=== PATIENT | female | born 1935 | race Caucasian/White ===

== ENCOUNTER 2017-01-13 11:46 | Inpatient (IN) | payer MEDICARE, OTHER ==
[~2017-01-13] VITALS: Ht 154.9 cm; Wt 64.8 kg
[~2017-01-13 11:46] MED LIST: ADLT ASA LOW81 MG OR; ADVAIR DISK1 IN; ALPRAZOLA1 OR; DILTIAZEM120 M1 PO; HYDROCHLOROT25 MG PO; KLOR-CON M2020 MEQ OR; NEXIUM40 M1 OR; PRIMIDONE50 MG OR; SINGULAIR10 MG OR; VICODIN ES1 TAB OR; ZOCOR20 MG OR; [UNRECOGNIZED DRUG - REMARK]
[2017-01-13 13:00] LABS: HEMATOCRIT 29.3 % (37.0-47.0); HEMOGLOBIN 9.7 g/dl (12.0-16.0); IMMATURE GRANULOCYTES 0.3 % (0.0-1.0); MEAN CELL VOLUME 87.7 fL CALC (80.0-100.0); MEAN CORPUSCULAR HGB CONC 33.1 g/L CALC (32.0-36.0); RED BLOOD COUNT 3.34 mill/uL (4.20-5.60); RED CELL DISTRI WIDTH 15.4 % (11.5-15.5)
[2017-01-13 13:20] LABS: ALBUMIN 4.2 g/dL (3.2-5.0); ALKALINE PHOSPHATASE 83 u/l (38-126); ANION GAP 15 (6-22 (CALC)); BILIRUBIN, TOTAL 0.6 mg/dL (0.0-1.4); BUN 39 mg/dL (8-23); BUN/CREATININE RATIO 14 (12-20 (CALC)); CALCIUM 9.2 mg/dL (8.4-10.2); CARBON DIOXIDE 24 mmol/l (22-30); CHLORIDE 105 mmol/l (95-108); CREATININE 2.8 mg/dL (0.5-1.0); GFR 16 ML/MIN (>=60 (CALC)); GFR FOR AFR.AMER. 20 ML/MIN (>=60 (CALC)); GLUCOSE 114 mg/dL (82-115); SGOT/AST 40 u/l (9-36); SGPT/ALT 34 u/l (11-66); SODIUM 140 mmol/l (137-146); TOTAL PROTEIN 7.1 g/dL (6.3-8.2)
[2017-01-13 13:30] LABS: MYOGLOBIN 66 ng/mL (0 - 62)
[2017-01-13] MEDS ORDERED: GLUCOTROL EXTE2.5 M1 PO (14:16)
[2017-01-13] MEDS ORDERED: PRIMIDONE50 MG PO ×2 (14:56→16:01)
[2017-01-13] MEDS ORDERED: NEURONTIN300 MG PO (14:58)
[2017-01-13] MEDS ORDERED: VITAMIN D50000 UNIT PO (14:59)
[2017-01-13] MEDS ORDERED: PRAMIPEXOLE0.25 MG PO (15:01)
[2017-01-13] MEDS ORDERED: ZESTRIL5 M1 PO (15:03)
[2017-01-13] MEDS ORDERED: CARB/LEVO1 TA4 PO (15:04)
[2017-01-13 15:39] LABS: URINE BILIRUBIN - DIPSTICK NEGATIVE (NEGATIVE); URINE BLOOD DIPSTICK NEGATIVE (NEGATIVE); URINE CLARITY CLEAR; URINE COLOR YELLOW; URINE GLUCOSE - DIPSTICK NEGATIVE (NEGATIVE); URINE KETONE NEGATIVE (NEGATIVE); URINE LEUK ESTERASE TRACE (NEGATIVE); URINE NITRITE - DIPSTICK NEGATIVE (Negative); URINE PROTEIN - DIPSTICK NEGATIVE (NEG-TRACE); URINE UROBILINOGEN - DIPSTICK 0.2 E.U./dL (0.2)
[2017-01-13] MEDS ORDERED: SIMVASTATIN20 MG PO (16:12)
[2017-01-13] MEDS ORDERED: FOLIC ACID1 MG PO (16:13)
[2017-01-13 17:00] VITALS: BP 189/87
[2017-01-13 18:55] VITALS: BP 142/58
[2017-01-13 18:56] VITALS: BP 160/61
[2017-01-13 18:57] VITALS: BP 139/58
[2017-01-13 23:20] VITALS: BP 133/55
[2017-01-14 04:20] VITALS: BP 150/60
[2017-01-14 05:26] LABS: IMMATURE GRANULOCYTES 0.2 % (0.0-1.0); MEAN CELL VOLUME 87.7 fL CALC (80.0-100.0); MEAN CORPUSCULAR HGB 29.2 pG CALC (26.0-32.0); MEAN CORPUSCULAR HGB CONC 33.3 g/L CALC (32.0-36.0); NEUT# 2.01 thou/uL (2.00-7.15); RED BLOOD COUNT 3.08 mill/uL (4.20-5.60); RED CELL DISTRI WIDTH 15.7 % (11.5-15.5)
[2017-01-14 05:37] LABS: ALBUMIN 3.5 g/dL (3.2-5.0); CALCIUM 8.8 mg/dL (8.4-10.2); CHOLESTEROL HDL RATIO 2.2 (<4.4 (CALC)); CREATININE 2.1 mg/dL (0.5-1.0); POTASSIUM 4.8 mmol/l (3.5-5.1)
[2017-01-14 08:02] VITALS: BP 150/63
[2017-01-14 11:10] VITALS: BP 148/62
[2017-01-14 16:30] VITALS: BP 158/67
[2017-01-14 19:20] VITALS: BP 162/69
[2017-01-15 00:52] VITALS: BP 136/62
[2017-01-15 05:03] VITALS: BP 143/68
[2017-01-15 06:16] LABS: HEMATOCRIT 27.8 % (37.0-47.0); HEMOGLOBIN 8.9 g/dl (12.0-16.0); IMMATURE GRANULOCYTES 0.2 % (0.0-1.0); MEAN CELL VOLUME 88.5 fL CALC (80.0-100.0); MEAN CORPUSCULAR HGB 28.3 pG CALC (26.0-32.0); NEUT# 2.33 thou/uL (2.00-7.15); RED BLOOD COUNT 3.14 mill/uL (4.20-5.60); RED CELL DISTRI WIDTH 15.8 % (11.5-15.5)
[2017-01-15 06:36] LABS: CALCIUM 9.2 mg/dL (8.4-10.2); CREATININE 1.9 mg/dL (0.5-1.0); POTASSIUM 5.1 mmol/l (3.5-5.1)
[2017-01-15 08:42] VITALS: BP 155/66
[2017-01-15] MEDS ORDERED: CARDIZEM CD120 M1 PO (12:03)
[2017-01-15 13:25] VITALS: BP 154/72
== END 2017-01-15 18:00 | disposition home health service (06) | DRG 309 ==
LOC: ENPENDDIS → ED 11:46 → ED-I 15:18 → ED 15:25 → MS2 15:26
PROVIDERS: Emergency Medicine; ADMIT Internal Medicine; ATTEND Internal Medicine
DX: R00.1 Bradycardia, unspecified (principal); N17.9 Acute kidney failure, unspecified; E11.22 Type 2 diabetes mellitus with diabetic chronic kidney disease; G20 Parkinson's disease; I95.2 Hypotension due to drugs; D64.9 Anemia, unspecified; E78.5 Hyperlipidemia, unspecified; I12.9 Hypertensive chronic kidney disease with stage 1 through stage 4 chronic kidney disease, or unspecified chronic kidney disease; N18.3 Chronic kidney disease, stage 3 (moderate); T50.2X5A Adverse effect of carbonic-anhydrase inhibitors, benzothiadiazides and other diuretics, initial encounter; T46.1X5A Adverse effect of calcium-channel blockers, initial encounter; Z87.11 Personal history of peptic ulcer disease; Z79.84 Long term (current) use of oral hypoglycemic drugs

== ENCOUNTER 2017-01-20 10:56 | Inpatient (IN) | payer MEDICARE, OTHER ==
[~2017-01-20] VITALS: Ht 154.9 cm; Wt 67.5 kg
[~2017-01-20 10:56] MED LIST changes: +CARB/LEVO1 TA4 PO; +CARDIZEM CD120 M1 PO; +FOLIC ACID1 MG PO; +GLUCOTROL EXTE2.5 M1 PO; +NEURONTIN300 MG PO; +PRAMIPEXOLE0.25 MG PO; +PRIMIDONE50 MG PO; +SIMVASTATIN20 MG PO; +VITAMIN D50000 UNIT PO; +ZESTRIL5 M1 PO
[2017-01-20 11:55] LABS: HEMATOCRIT 28.9 % (37.0-47.0); HEMOGLOBIN 9.5 g/dl (12.0-16.0); IMMATURE GRANULOCYTES 0.2 % (0.0-1.0); MEAN CORPUSCULAR HGB 28.6 pG CALC (26.0-32.0); MEAN CORPUSCULAR HGB CONC 32.9 g/L CALC (32.0-36.0); NEUT# 2.52 thou/uL (2.00-7.15); RED BLOOD COUNT 3.32 mill/uL (4.20-5.60); RED CELL DISTRI WIDTH 15.5 % (11.5-15.5)
[2017-01-20 12:33] LABS: ALBUMIN 4.4 g/dL (3.2-5.0); ALKALINE PHOSPHATASE 80 u/l (38-126); ANION GAP 16 (6-22 (CALC)); BILIRUBIN, TOTAL 0.6 mg/dL (0.0-1.4); BUN 23 mg/dL (8-23); BUN/CREATININE RATIO 13 (12-20 (CALC)); CALCIUM 9.5 mg/dL (8.4-10.2); CARBON DIOXIDE 24 mmol/l (22-30); CHLORIDE 99 mmol/l (95-108); CREATININE 1.8 mg/dL (0.5-1.0); GFR 27 ML/MIN (>=60 (CALC)); GFR FOR AFR.AMER. 33 ML/MIN (>=60 (CALC)); GLUCOSE 181 mg/dL (82-115); POTASSIUM 4.7 mmol/l (3.5-5.1); SGOT/AST 42 u/l (9-36); SGPT/ALT 32 u/l (11-66); SODIUM 134 mmol/l (137-146); TOTAL PROTEIN 7.2 g/dL (6.3-8.2)
[2017-01-20 12:42] LABS: MYOGLOBIN 49 ng/mL (0 - 62)
[2017-01-20 15:30] VITALS: BP 168/63
[2017-01-20 19:30] VITALS: BP 171/69
[2017-01-20 19:58] LABS: URINE BILIRUBIN - DIPSTICK NEGATIVE (NEGATIVE); URINE BLOOD DIPSTICK NEGATIVE (NEGATIVE); URINE CLARITY CLEAR; URINE COLOR YELLOW; URINE GLUCOSE - DIPSTICK NEGATIVE (NEGATIVE); URINE KETONE NEGATIVE (NEGATIVE); URINE PROTEIN - DIPSTICK NEGATIVE (NEG-TRACE); URINE UROBILINOGEN - DIPSTICK 0.2 E.U./dL (0.2)
[2017-01-20 19:59] LABS: URINE LEUK ESTERASE MODERATE (NEGATIVE); URINE NITRITE - DIPSTICK POSITIVE (Negative)
[2017-01-20 20:11] LABS: URINE SQUAMOUS EPITHELIAL CELL FEW EPI/hpf (0-FEW)
[2017-01-20 23:40] VITALS: BP 142/58
[2017-01-21 03:41] VITALS: BP 173/73
[2017-01-21 08:18] LABS: HEMATOCRIT 29.2 % (37.0-47.0); HEMOGLOBIN 9.4 g/dl (12.0-16.0); IMMATURE GRANULOCYTES 0.2 % (0.0-1.0); MEAN CELL VOLUME 88.8 fL CALC (80.0-100.0); MEAN CORPUSCULAR HGB 28.6 pG CALC (26.0-32.0); MEAN CORPUSCULAR HGB CONC 32.2 g/L CALC (32.0-36.0); NEUT# 2.59 thou/uL (2.00-7.15); RED BLOOD COUNT 3.29 mill/uL (4.20-5.60); RED CELL DISTRI WIDTH 15.6 % (11.5-15.5)
[2017-01-21 08:28] LABS: CALCIUM 9.5 mg/dL (8.4-10.2); CREATININE 1.6 mg/dL (0.5-1.0)
[2017-01-21 08:41] LABS: POTASSIUM 5.2 mmol/l (3.5-5.1)
[2017-01-21 09:03] VITALS: BP 171/65
[2017-01-21 10:49] VITALS: BP 172/78
[2017-01-21 15:08] VITALS: BP 171/68
[2017-01-21 19:40] VITALS: BP 142/72
[2017-01-22 01:06] VITALS: BP 131/61
[2017-01-22 04:30] VITALS: BP 156/65
[2017-01-22 06:31] LABS: CREATININE 1.4 mg/dL (0.5-1.0)
[2017-01-22 08:28] VITALS: BP 158/59
[2017-01-22 12:49] VITALS: BP 179/71
[2017-01-22 13:29] VITALS: BP 155/88
[2017-01-22 16:38] VITALS: BP 156/63
== END 2017-01-22 17:12 | disposition short-term general hospital (02) | DRG 309 ==
LOC: ED 10:56 → ED-I 12:41 → ED 12:41 → ED-I 12:41 → ED 13:25 → MS2 13:26
PROVIDERS: Emergency Medicine; ADMIT Internal Medicine; ATTEND Internal Medicine
DX: I49.5 Sick sinus syndrome (principal); N17.9 Acute kidney failure, unspecified; E11.22 Type 2 diabetes mellitus with diabetic chronic kidney disease; G20 Parkinson's disease; E87.1 Hypo-osmolality and hyponatremia; I12.9 Hypertensive chronic kidney disease with stage 1 through stage 4 chronic kidney disease, or unspecified chronic kidney disease; N18.3 Chronic kidney disease, stage 3 (moderate); E78.5 Hyperlipidemia, unspecified; D64.9 Anemia, unspecified; E87.5 Hyperkalemia; Z87.11 Personal history of peptic ulcer disease; Z79.84 Long term (current) use of oral hypoglycemic drugs
CPT/HCPCS: G0378

== ENCOUNTER 2017-02-19 13:49 | Emergency (ER) | payer MEDICARE, OTHER ==
[~2017-02-19] VITALS: Ht 154.9 cm; Wt 90.0 kg
[2017-02-19 14:44] LABS: HEMOGLOBIN 8.3 g/dl (12.0-16.0); IMMATURE GRANULOCYTES 1.3 % (0.0-1.0); MEAN CELL VOLUME 89.9 fL CALC (80.0-100.0); MEAN CORPUSCULAR HGB 29.9 pG CALC (26.0-32.0); MEAN CORPUSCULAR HGB CONC 33.2 g/L CALC (32.0-36.0); NEUT# 7.01 thou/uL (2.00-7.15); RED BLOOD COUNT 2.78 mill/uL (4.20-5.60); RED CELL DISTRI WIDTH 16.4 % (11.5-15.5)
[2017-02-19 14:57] LABS: BILIRUBIN, TOTAL 1.1 mg/dL (0.0-1.4); CALCIUM 8.8 mg/dL (8.4-10.2); CREATININE 1.7 mg/dL (0.5-1.0); POTASSIUM 4.4 mmol/l (3.5-5.1); TOTAL PROTEIN 6.8 g/dL (6.3-8.2)
[2017-02-19] MEDS ORDERED: BACTRIM DS1 TAB PO (16:13)
[2017-02-19 16:39] LABS: URINE BILIRUBIN - DIPSTICK NEGATIVE (NEGATIVE); URINE BLOOD DIPSTICK SMALL (NEGATIVE); URINE CLARITY TURBID; URINE COLOR YELLOW; URINE GLUCOSE - DIPSTICK NEGATIVE (NEGATIVE); URINE KETONE NEGATIVE (NEGATIVE); URINE NITRITE - DIPSTICK NEGATIVE (Negative); URINE PH 5.5 (4.5-8.0); URINE PROTEIN - DIPSTICK 30 mg/dL (NEG-TRACE); URINE SPECIFIC GRAVITY 1.015; URINE UROBILINOGEN - DIPSTICK 0.2 E.U./dL (0.2)
[2017-02-19 16:41] LABS: URINE LEUK ESTERASE LARGE (NEGATIVE)
[2017-02-19 16:50] LABS: URINE BACTERIA MODERATE hpf; URINE MUCUS FEW hpf (NONE-FEW); URINE RBC 0-2 RBC/hpf (0-5); URINE SQUAMOUS EPITHELIAL CELL FEW EPI/hpf (0-FEW); URINE WBC 50-100 WBC/hpf (0-5)
[2017-02-19 18:06] VITALS: BP 129/58
== END 2017-02-19 18:28 | disposition home or self-care (01) ==
LOC: ED 13:49
PROVIDERS: Emergency Medicine
DX: N39.0 Urinary tract infection, site not specified (principal); B96.20 Unspecified Escherichia coli [E. coli] as the cause of diseases classified elsewhere; Z95.0 Presence of cardiac pacemaker; R94.31 Abnormal electrocardiogram [ECG] [EKG]; R53.81 Other malaise; I10 Essential (primary) hypertension; E11.9 Type 2 diabetes mellitus without complications; Z79.84 Long term (current) use of oral hypoglycemic drugs

== ENCOUNTER 2017-04-15 15:00 | Emergency (ER) | payer MEDICARE, OTHER ==
[~2017-04-15] VITALS: Ht 154.9 cm; Wt 65.0 kg
[~2017-04-15 15:00] MED LIST changes: +BACTRIM DS1 TAB PO
[2017-04-15 16:01] LABS: HEMATOCRIT 32.6 % (37.0-47.0); HEMOGLOBIN 10.7 g/dl (12.0-16.0); IMMATURE GRANULOCYTES 0.2 % (0.0-1.0); MEAN CELL VOLUME 97.6 fL CALC (80.0-100.0); MEAN CORPUSCULAR HGB CONC 32.8 g/L CALC (32.0-36.0); NEUT# 2.68 thou/uL (2.00-7.15); RED BLOOD COUNT 3.34 mill/uL (4.20-5.60); RED CELL DISTRI WIDTH 15.1 % (11.5-15.5)
[2017-04-15 16:19] LABS: ALKALINE PHOSPHATASE 82 u/l (38-126); AMYLASE 35 u/l (30-110); ANION GAP 17 (6-22 (CALC)); BILIRUBIN, TOTAL 0.5 mg/dL (0.0-1.4); BUN 14 mg/dL (8-23); BUN/CREATININE RATIO 13 (12-20 (CALC)); CALCIUM 8.9 mg/dL (8.4-10.2); CARBON DIOXIDE 24 mmol/l (22-30); CHLORIDE 105 mmol/l (95-108); CREATININE 1.1 mg/dL (0.5-1.0); GFR 48 ML/MIN (>=60 (CALC)); GFR FOR AFR.AMER. 58 ML/MIN (>=60 (CALC)); GLUCOSE 181 mg/dL (82-115); LIPASE 26 u/l (23-300); SGOT/AST 47 u/l (9-36); SGPT/ALT 39 u/l (11-66); SODIUM 142 mmol/l (137-146)
[2017-04-15 16:31] LABS: MYOGLOBIN 65 ng/mL (0 - 62)
[2017-04-15 17:08] LABS: URINE BILIRUBIN - DIPSTICK NEGATIVE (NEGATIVE); URINE BLOOD DIPSTICK TRACE-INTACT (NEGATIVE); URINE CLARITY CLOUDY; URINE COLOR YELLOW; URINE GLUCOSE - DIPSTICK NEGATIVE (NEGATIVE); URINE KETONE NEGATIVE (NEGATIVE); URINE PROTEIN - DIPSTICK NEGATIVE (NEG-TRACE); URINE SPECIFIC GRAVITY 1.025; URINE UROBILINOGEN - DIPSTICK 0.2 E.U./dL (0.2)
[2017-04-15 17:09] LABS: URINE LEUK ESTERASE MODERATE (NEGATIVE); URINE NITRITE - DIPSTICK POSITIVE (Negative)
[2017-04-15 17:17] LABS: URINE BACTERIA MANY hpf; URINE SQUAMOUS EPITHELIAL CELL FEW EPI/hpf (0-FEW); URINE WBC 50-100 WBC/hpf (0-5)
[2017-04-15] MEDS ORDERED: NAPROSYN500 MG PO (17:25)
[2017-04-15] MEDS ORDERED: CEPHALEXIN500 MG PO (17:25)
[2017-04-15 18:23] VITALS: BP 160/82
== END 2017-04-15 18:28 | disposition home or self-care (01) ==
LOC: ED 15:00
PROVIDERS: Emergency Medicine
DX: N39.0 Urinary tract infection, site not specified (principal); M25.512 Pain in left shoulder; M79.602 Pain in left arm; R11.0 Nausea; D64.9 Anemia, unspecified; I10 Essential (primary) hypertension; G20 Parkinson's disease; E11.9 Type 2 diabetes mellitus without complications; B96.1 Klebsiella pneumoniae [K. pneumoniae] as the cause of diseases classified elsewhere; Z16.12 Extended spectrum beta lactamase (ESBL) resistance

== ENCOUNTER 2017-06-18 08:27 | Emergency (ER) | payer MEDICARE, OTHER ==
[~2017-06-18] VITALS: Ht 154.9 cm; Wt 68.0 kg
[~2017-06-18 08:27] MED LIST changes: +CEPHALEXIN500 MG PO; +NAPROSYN500 MG PO
[2017-06-18 09:10] LABS: HEMATOCRIT 32.8 % (37.0-47.0); HEMOGLOBIN 10.6 g/dl (12.0-16.0); IMMATURE GRANULOCYTES 0.3 % (0.0-1.0); MEAN CELL VOLUME 96.2 fL CALC (80.0-100.0); MEAN CORPUSCULAR HGB 31.1 pG CALC (26.0-32.0); MEAN CORPUSCULAR HGB CONC 32.3 g/L CALC (32.0-36.0); NEUT# 2.24 thou/uL (2.00-7.15); RED BLOOD COUNT 3.41 mill/uL (4.20-5.60); RED CELL DISTRI WIDTH 13.8 % (11.5-15.5)
[2017-06-18] MEDS ORDERED: TERAZOSIN5 MG PO (09:23)
[2017-06-18 09:29] LABS: ALBUMIN 4.2 g/dL (3.2-5.0); ALKALINE PHOSPHATASE 100 u/l (38-126); ANION GAP 14 (6-22 (CALC)); BILIRUBIN, TOTAL 0.6 mg/dL (0.0-1.4); BUN 22 mg/dL (8-23); BUN/CREATININE RATIO 22 (12-20 (CALC)); CALCIUM 9.3 mg/dL (8.4-10.2); CARBON DIOXIDE 24 mmol/l (22-30); CHLORIDE 107 mmol/l (95-108); GFR 53 ML/MIN (>=60 (CALC)); GFR FOR AFR.AMER. > 60 ML/MIN (>=60 (CALC)); GLUCOSE 122 mg/dL (82-115); SGOT/AST 30 u/l (9-36); SGPT/ALT 37 u/l (11-66); SODIUM 141 mmol/l (137-146); TOTAL PROTEIN 6.9 g/dL (6.3-8.2)
[2017-06-18 09:39] LABS: MYOGLOBIN 69 ng/mL (0 - 62)
[2017-06-18] MEDS ORDERED: DOCUSATE CAL240 MG PO (09:59)
[2017-06-18] MEDS ORDERED: TYLENOL 8 HOUR650 MG PO (10:01)
[2017-06-18] MEDS ORDERED: CLONIDINE0.1 MG PO (11:00)
[2017-06-18 11:06] VITALS: BP 175/75
== END 2017-06-18 11:30 | disposition home or self-care (01) ==
LOC: ED 08:27
PROVIDERS: Emergency Medicine
DX: I16.0 Hypertensive urgency (principal); R94.31 Abnormal electrocardiogram [ECG] [EKG]; G20 Parkinson's disease; E11.9 Type 2 diabetes mellitus without complications; Z95.0 Presence of cardiac pacemaker

== ENCOUNTER 2017-08-04 15:20 | Emergency (ER) | payer MEDICARE, OTHER ==
[~2017-08-04] VITALS: Ht 154.9 cm; Wt 65.0 kg
[~2017-08-04 15:20] MED LIST changes: +ASPIRIN81 MG PO; +CLONIDINE0.1 MG PO; +DOCUSATE CAL240 MG PO; +LISINOPRIL5 MG PO; +OXYBUTYNIN5 M1 PO; +PROCRIT4000 UNIT/ SC; +TERAZOSIN5 MG PO; +TYLENOL 8 HOUR650 MG PO
[2017-08-04 16:54] LABS: HEMATOCRIT 35.7 % (37.0-47.0); HEMOGLOBIN 11.5 g/dl (12.0-16.0); IMMATURE GRANULOCYTES 0.2 % (0.0-1.0); MEAN CELL VOLUME 97.8 fL CALC (80.0-100.0); MEAN CORPUSCULAR HGB 31.5 pG CALC (26.0-32.0); MEAN CORPUSCULAR HGB CONC 32.2 g/L CALC (32.0-36.0); NEUT# 3.01 thou/uL (2.00-7.15); RED BLOOD COUNT 3.65 mill/uL (4.20-5.60); RED CELL DISTRI WIDTH 14.4 % (11.5-15.5)
[2017-08-04 17:18] LABS: ALBUMIN 4.4 g/dL (3.2-5.0); BILIRUBIN, TOTAL 0.6 mg/dL (0.0-1.4); CALCIUM 9.9 mg/dL (8.4-10.2); CREATININE 1.1 mg/dL (0.5-1.0); POTASSIUM 4.8 mmol/l (3.5-5.1); TOTAL PROTEIN 7.5 g/dL (6.3-8.2)
[2017-08-04 18:26] VITALS: BP 156/67
== END 2017-08-04 18:35 | disposition home or self-care (01) ==
LOC: ED 15:20
PROVIDERS: Emergency Medicine
DX: R10.11 Right upper quadrant pain (principal); G89.29 Other chronic pain; R10.31 Right lower quadrant pain; K59.00 Constipation, unspecified

== ENCOUNTER 2017-11-12 08:07 | Day surgery (SDC) | payer MEDICARE, OTHER ==
[~2017-11-12] VITALS: Ht 152.4 cm; Wt 67.6 kg
[~2017-11-12 08:07] MED LIST changes: +CEPHALEXIN500 M1 PO; +DULOXETINE HCL30 MG PO; +FOLIC ACID1 M1 PO; +GABAPENTIN300 M2 PO; +MOTRIN400 MG PO; +ONDANSETRON4 MG PO; +PRAMIPEXOLE0.125 MG PO
[2017-11-12] MEDS ORDERED: TRAMADOL HYDROC50 MG PO (12:47)
[2017-11-12 16:03] VITALS: BP 105/51
== END 2017-11-12 15:20 | disposition home or self-care (01) ==
LOC: ORM 08:07
PROVIDERS: ATTEND Surgery
PROC: 0JH60XZ Insertion of Tunneled Vascular Access Device into Chest Subcutaneous Tissue and Fascia, Open Approach (ICD-10-PCS; principal; 2017-11-12)
PROC: 02HV33Z Insertion of Infusion Device into Superior Vena Cava, Percutaneous Approach (ICD-10-PCS; 2017-11-12)
PROC: B518ZZA Fluoroscopy of Superior Vena Cava, Guidance (ICD-10-PCS; 2017-11-12)
DX: I87.8 Other specified disorders of veins (principal); I10 Essential (primary) hypertension; E78.00 Pure hypercholesterolemia, unspecified

== ENCOUNTER 2017-11-30 13:11 | Emergency (ER) | payer OTHER, MEDICARE ==
[~2017-11-30] VITALS: Ht 152.4 cm; Wt 70.0 kg
[~2017-11-30 13:11] MED LIST changes: +TRAMADOL HYDROC50 MG PO
[2017-11-30 17:44] VITALS: BP 188/85
== END 2017-11-30 17:50 | disposition home or self-care (01) | DRG 605 ==
LOC: ED 13:11
DX: S20.211A Contusion of right front wall of thorax, initial encounter (principal); G20 Parkinson's disease; I10 Essential (primary) hypertension; S20.229A Contusion of unspecified back wall of thorax, initial encounter; V43.52XA Car driver injured in collision with other type car in traffic accident, initial encounter; Y92.414 Local residential or business street as the place of occurrence of the external cause

== ENCOUNTER 2017-12-07 11:35 | Emergency (ER) | payer OTHER, MEDICARE ==
[~2017-12-07] VITALS: Ht 152.4 cm; Wt 63.0 kg
[2017-12-07] MEDS ORDERED: TORADOL PO (12:54)
[2017-12-07 12:56] VITALS: BP 158/80
== END 2017-12-07 13:13 | disposition home or self-care (01) | DRG 563 ==
LOC: ED 11:35
DX: S29.012A Strain of muscle and tendon of back wall of thorax, initial encounter (principal); S20.229D Contusion of unspecified back wall of thorax, subsequent encounter; V43.52XD Car driver injured in collision with other type car in traffic accident, subsequent encounter; Y92.414 Local residential or business street as the place of occurrence of the external cause

== ENCOUNTER 2019-02-18 12:21 | Emergency (ER) | payer MEDICARE, OTHER ==
[~2019-02-18] VITALS: Ht 157.5 cm; Wt 60.0 kg
[~2019-02-18 12:21] MED LIST changes: +TORADOL PO
[2019-02-18 13:32] LABS: HEMATOCRIT 30.8 % (37.0-47.0); HEMOGLOBIN 10.1 g/dl (12.0-16.0); IMMATURE GRANULOCYTES 0.5 % (0.0-5.0); MEAN CELL VOLUME 97.2 fL CALC (80.0-100.0); MEAN CORPUSCULAR HGB 31.9 pG CALC (26.0-32.0); MEAN CORPUSCULAR HGB CONC 32.8 g/L CALC (32.0-36.0); NEUT# 1.9 thou/uL (2.00-7.15); RED BLOOD COUNT 3.17 mill/uL (4.20-5.60); RED CELL DISTRI WIDTH 14.4 % (11.5-15.5)
[2019-02-18 13:55] LABS: ANION GAP 9 (6-22 (CALC)); BUN 16 mg/dL (8-23); BUN/CREATININE RATIO 20 (12-20 (CALC)); CARBON DIOXIDE 29 mmol/l (22-30); CHLORIDE 103 mmol/l (95-108); CREATININE 0.8 mg/dL (0.5-1.0); GFR > 60 ML/MIN (>=60 (CALC)); GFR FOR AFR.AMER. > 60 ML/MIN (>=60 (CALC)); POTASSIUM 4.3 mmol/l (3.5-5.1); SODIUM 137 mmol/l (137-146)
[2019-02-18 14:41] VITALS: BP 184/82
== END 2019-02-18 14:41 ==
LOC: ED 12:21
PROVIDERS: Family Medicine
DX: R42 Dizziness and giddiness (principal); I10 Essential (primary) hypertension; G20 Parkinson's disease; E11.9 Type 2 diabetes mellitus without complications

== ENCOUNTER 2019-09-08 12:03 | Emergency (ER) | payer MEDICARE, OTHER ==
[2019-09-08] MEDS ORDERED: MAGNESIUM296 ML/BTL PO (13:09)
[2019-09-08 13:18] VITALS: BP 182/86
[2019-09-09] MEDS ORDERED: XARELTO10 MG PO (13:50)
== END 2019-09-08 13:33 | disposition home or self-care (01) ==
LOC: ED 12:03
DX: K59.00 Constipation, unspecified (principal); I10 Essential (primary) hypertension; G20 Parkinson's disease; E11.9 Type 2 diabetes mellitus without complications

== ENCOUNTER 2019-09-21 12:57 | Observation (INO) | payer MEDICARE, OTHER ==
[~2019-09-21] VITALS: Ht 154.9 cm; Wt 62.3 kg
[~2019-09-21 12:57] MED LIST changes: +MAGNESIUM296 ML/BTL PO; +XARELTO10 MG PO
[2019-09-21 13:38] LABS: HEMATOCRIT 30.8 % (37.0-47.0); HEMOGLOBIN 10.3 g/dl (12.0-16.0); IMMATURE GRANULOCYTES 0.3 % (0.0-5.0); MEAN CELL VOLUME 95.4 fL CALC (80.0-100.0); MEAN CORPUSCULAR HGB 31.9 pG CALC (26.0-32.0); MEAN CORPUSCULAR HGB CONC 33.4 g/L CALC (32.0-36.0); NEUT# 1.55 thou/uL (2.00-7.15); RED BLOOD COUNT 3.23 mill/uL (4.20-5.60); RED CELL DISTRI WIDTH 13.1 % (11.5-15.5)
[2019-09-21 14:12] LABS: ANION GAP 11 (6-22 (CALC)); BUN 17 mg/dL (8-23); BUN/CREATININE RATIO 17 (12-20 (CALC)); CARBON DIOXIDE 29 mmol/l (22-30); CHLORIDE 95 mmol/l (95-108); GFR 53 ML/MIN (>=60 (CALC)); GFR FOR AFR.AMER. > 60 ML/MIN (>=60 (CALC)); POTASSIUM 4.4 mmol/l (3.5-5.1); SODIUM 131 mmol/l (137-146)
[2019-09-21] MEDS ORDERED: FAMOTIDINE20 M1 PO (15:42)
[2019-09-21] MEDS ORDERED: LISINOPRIL20 MG PO (15:44)
[2019-09-21] MEDS ORDERED: DITROPAN5 MG/TA1 PO (15:48)
[2019-09-21] MEDS ORDERED: XARELTO10 MG PO (16:13)
[2019-09-21] MEDS ORDERED: D32000 UNIT PO (16:13)
[2019-09-21] MEDS ORDERED: PRIMIDONE50 MG PO (16:14)
[2019-09-21 19:10] VITALS: BP 158/78
[2019-09-22 04:34] VITALS: BP 151/75
[2019-09-22 06:14] LABS: CHOLESTEROL HDL RATIO 1.8 (<4.4 (CALC))
[2019-09-22 08:00] VITALS: BP 158/52
[2019-09-22 11:55] VITALS: BP 173/75
== END 2019-09-22 15:55 | disposition home health service (06) ==
LOC: ED 12:57 → ED-I 14:58 → ED 15:11 → MS2 15:12
PROVIDERS: Family Medicine; ADMIT Internal Medicine; ATTEND Internal Medicine
DX: R07.89 Other chest pain (principal); I48.0 Paroxysmal atrial fibrillation; I12.9 Hypertensive chronic kidney disease with stage 1 through stage 4 chronic kidney disease, or unspecified chronic kidney disease; E11.22 Type 2 diabetes mellitus with diabetic chronic kidney disease; N18.3 Chronic kidney disease, stage 3 (moderate); G20 Parkinson's disease; E78.5 Hyperlipidemia, unspecified; D64.9 Anemia, unspecified; Z95.828 Presence of other vascular implants and grafts; Z87.11 Personal history of peptic ulcer disease; Z95.0 Presence of cardiac pacemaker; N18.4 Chronic kidney disease, stage 4 (severe); D63.1 Anemia in chronic kidney disease; D50.9 Iron deficiency anemia, unspecified; Z45.2 Encounter for adjustment and management of vascular access device
CPT/HCPCS: G0378; Q5106 EC

== ENCOUNTER 2019-11-04 | Emergency (ER) | payer MEDICARE, OTHER ==
[~2019-11-04] MED LIST changes: +D32000 UNIT PO; +DITROPAN5 MG/TA1 PO; +FAMOTIDINE20 M1 PO; +LISINOPRIL20 MG PO
[2019-11-04 14:09] LABS: HEMATOCRIT 31.4 % (37.0-47.0); HEMOGLOBIN 10.8 g/dl (12.0-16.0); IMMATURE GRANULOCYTES 0.2 % (0.0-5.0); MEAN CELL VOLUME 93.2 fL CALC (80.0-100.0); MEAN CORPUSCULAR HGB CONC 34.4 g/dL CAL (32.0-36.0); NEUT# 2.48 thou/uL (2.00-7.15); RED BLOOD COUNT 3.37 mill/uL (4.20-5.60); RED CELL DISTRI WIDTH 12.7 % (11.5-15.5)
[2019-11-04 14:40] LABS: ANION GAP 10 (6-22 (CALC)); BUN 13 mg/dL (8-23); BUN/CREATININE RATIO 16 (12-20 (CALC)); CARBON DIOXIDE 27 mmol/l (22-30); CHLORIDE 95 mmol/l (95-108); CREATININE 0.8 mg/dL (0.5-1.0); GFR > 60 ML/MIN (>=60 (CALC)); GFR FOR AFR.AMER. > 60 ML/MIN (>=60 (CALC)); POTASSIUM 4.2 mmol/l (3.5-5.1); SODIUM 128 mmol/l (137-146)
[2019-11-04] MEDS ORDERED: VOLTAREN1%GEL TOP (18:49)
--- NOTE | 2019-11-06 13:53 | NUR ---
COVID results called to Stephy Pemberton (Director). Stephy states she will inform patient as there are no phone in rooms.
== END 2019-11-04 19:20 | disposition home or self-care (01) ==
PROVIDERS: Family Medicine
DX: R07.9 Chest pain, unspecified (principal); I10 Essential (primary) hypertension; E11.9 Type 2 diabetes mellitus without complications; G20 Parkinson's disease; Z95.0 Presence of cardiac pacemaker; Z20.828 Contact with and (suspected) exposure to other viral communicable diseases

== ENCOUNTER 2019-12-21 12:07 | Emergency (ER) | payer MEDICARE, OTHER ==
[~2019-12-21 12:07] MED LIST changes: +VOLTAREN1%GEL TOP
[2019-12-21 13:24] LABS: HEMATOCRIT 29.8 % (37.0-47.0); HEMOGLOBIN 10.2 g/dl (12.0-16.0); IMMATURE GRANULOCYTES 0.3 % (0.0-5.0); MEAN CELL VOLUME 92.5 fL CALC (80.0-100.0); MEAN CORPUSCULAR HGB 31.7 pG CALC (26.0-32.0); MEAN CORPUSCULAR HGB CONC 34.2 g/dL CAL (32.0-36.0); NEUT# 2.16 thou/uL (2.00-7.15); RED BLOOD COUNT 3.22 mill/uL (4.20-5.60); RED CELL DISTRI WIDTH 12.8 % (11.5-15.5)
[2019-12-21 13:48] LABS: ALBUMIN 3.7 g/dL (3.2-5.0); ALKALINE PHOSPHATASE 57 u/l (38-126); ANION GAP 11 (6-22 (CALC)); BILIRUBIN, TOTAL 0.5 mg/dL (0.0-1.4); BUN 14 mg/dL (8-23); BUN/CREATININE RATIO 16 (12-20 (CALC)); CARBON DIOXIDE 25 mmol/l (22-30); CHLORIDE 100 mmol/l (95-108); CREATININE 0.9 mg/dL (0.5-1.0); GFR 60 ML/MIN (>=60 (CALC)); GFR FOR AFR.AMER. > 60 ML/MIN (>=60 (CALC)); LIPASE 27 u/l (23-300); POTASSIUM 4.1 mmol/l (3.5-5.1); SGOT/AST 57 u/l (9-36); SODIUM 131 mmol/l (137-146); TOTAL PROTEIN 6.3 g/dL (6.3-8.2)
[2019-12-21 15:25] LABS: URINE BILIRUBIN - DIPSTICK NEGATIVE (NEGATIVE); URINE BLOOD DIPSTICK NEGATIVE (NEGATIVE); URINE COLOR YELLOW; URINE GLUCOSE - DIPSTICK NEGATIVE (NEGATIVE); URINE KETONE NEGATIVE (NEGATIVE); URINE NITRITE - DIPSTICK NEGATIVE (Negative); URINE PH 6.5 (4.5-8.0); URINE PROTEIN - DIPSTICK TRACE mg/dL (NEG-TRACE); URINE SPECIFIC GRAVITY 1.025; URINE UROBILINOGEN - DIPSTICK 0.2 E.U./dL (0.2)
[2019-12-21 15:31] LABS: URINE LEUK ESTERASE MODERATE (NEGATIVE)
[2019-12-21 15:40] LABS: URINE BACTERIA MANY hpf; URINE SQUAMOUS EPITHELIAL CELL FEW EPI/hpf (0-FEW)
[2019-12-21] MEDS ORDERED: CEPHALEXIN500 M1 PO (15:50)
[2019-12-21 16:04] VITALS: BP 166/87
== END 2019-12-21 16:30 ==
LOC: ED 12:07
PROVIDERS: Family Medicine
DX: N39.0 Urinary tract infection, site not specified (principal); G20 Parkinson's disease; E11.9 Type 2 diabetes mellitus without complications; I12.9 Hypertensive chronic kidney disease with stage 1 through stage 4 chronic kidney disease, or unspecified chronic kidney disease; Z20.828 Contact with and (suspected) exposure to other viral communicable diseases; N18.4 Chronic kidney disease, stage 4 (severe); D63.1 Anemia in chronic kidney disease; D50.9 Iron deficiency anemia, unspecified; Z45.2 Encounter for adjustment and management of vascular access device
CPT/HCPCS: Q5106 EC

== ENCOUNTER 2020-02-18 13:54 | Observation (INO) | payer MEDICARE, OTHER ==
[~2020-02-18] VITALS: Ht 154.9 cm; Wt 63.6 kg
--- NOTE | 2020-02-18 14:25 | NUR ---
PT IMMEDIATELY TO RM 14. B/S TRIAGE COMPLETED AT THIS TIME.
[2020-02-18 14:47] LABS: URINE BILIRUBIN - DIPSTICK NEGATIVE (NEGATIVE); URINE BLOOD DIPSTICK NEGATIVE (NEGATIVE); URINE COLOR YELLOW; URINE GLUCOSE - DIPSTICK NEGATIVE (NEGATIVE); URINE KETONE NEGATIVE (NEGATIVE); URINE NITRITE - DIPSTICK NEGATIVE (Negative); URINE PH 6.5 (4.5-8.0); URINE PROTEIN - DIPSTICK NEGATIVE (NEG-TRACE); URINE SPECIFIC GRAVITY 1.015
[2020-02-18 14:48] LABS: HEMATOCRIT 29.5 % (37.0-47.0); HEMOGLOBIN 9.9 g/dl (12.0-16.0); IMMATURE GRANULOCYTES 0.2 % (0.0-5.0); MEAN CELL VOLUME 92.8 fL CALC (80.0-100.0); MEAN CORPUSCULAR HGB 31.1 pG CALC (26.0-32.0); MEAN CORPUSCULAR HGB CONC 33.6 g/dL CAL (32.0-36.0); NEUT# 3.19 thou/uL (2.00-7.15); RED BLOOD COUNT 3.18 mill/uL (4.20-5.60); RED CELL DISTRI WIDTH 12.7 % (11.5-15.5)
[2020-02-18 14:57] LABS: URINE LEUK ESTERASE SMALL (NEGATIVE)
[2020-02-18 15:03] LABS: ALBUMIN 3.7 g/dL (3.2-5.0); ALKALINE PHOSPHATASE 62 u/l (38-126); ANION GAP 13 (6-22 (CALC)); BILIRUBIN, TOTAL 0.7 mg/dL (0.0-1.4); BUN 11 mg/dL (8-23); BUN/CREATININE RATIO 12 (12-20 (CALC)); CARBON DIOXIDE 23 mmol/l (22-30); CHLORIDE 93 mmol/l (95-108); CREATININE 0.9 mg/dL (0.5-1.0); GFR 60 ML/MIN (>=60 (CALC)); GFR FOR AFR.AMER. > 60 ML/MIN (>=60 (CALC)); SGOT/AST 34 u/l (9-36); SODIUM 125 mmol/l (137-146); TOTAL PROTEIN 6.1 g/dL (6.3-8.2)
[2020-02-18 15:10] LABS: URINE BACTERIA FEW hpf; URINE SQUAMOUS EPITHELIAL CELL FEW EPI/hpf (0-FEW); URINE WBC 20-50 WBC/hpf (0-5)
--- NOTE | 2020-02-18 15:20 | NUR ---
PT RESTING ON STRETCHER; NO S/S OF DISTRESS NOTED; PT ADVISED OF CONTINUED WAIT TIME; MONITORING DEVICES IN PLACE; VSS; WILL CONTINUE TO MONITOR
--- NOTE | 2020-02-18 16:20 | NUR ---
PT ASSISTED TO BSC;
--- NOTE | 2020-02-18 17:20 | NUR ---
PT SITTING UP ON BSC; STATES SHE FEELS LIKE SHE JUST HAS TO KEEP GOING; CALL LIGHT WITHIN REACH; WILL CONTINUE TO MONITOR
--- NOTE | 2020-02-18 18:20 | NUR ---
PT RESTING ON STRETCHER WITH EYES CLOSED
--- NOTE | 2020-02-18 18:50 | NUR ---
REPORT TO MAGDALENA MCCABE
--- NOTE | 2020-02-18 19:49 | NUR ---
HAND OFF REPORT GIVEN TO DIAMOND FOR INPATIENT BED.
--- NOTE | 2020-02-18 19:49 | NUR ---
PATIENT ASSISTED TO BEDPAN.
--- NOTE | 2020-02-18 19:54 | NUR ---
PT ARRIVES TO UNIT VIA STRETCHER, ACCOMPANIED BY Golden MURPHY RN. PT AMBULATORY TO BED. GAIT STEADY AND BALANCED. ORIENTED TO UNIT, ROOM, CALL BAEZ, BED/TV/LIGHT CONTROLS. PT VERBALIZES UNDERSTANDING. PERSONAL ITEMS WITHIN REACH. BED LOCKED IN LOW POSITION W/ BEDRAILS UP X2 AND BEDALRM ON. CALL BAEZ WITHIN REACH. AGREES TO CALL PRN.
--- NOTE | 2020-02-18 20:05 | NUR ---
PT VERBALIZES NEED TO VOID, TAHIR HOGAN ASSISTING PT OOB TO BATHROOM, PT UNABLE TO MAKE IT AND VOIDED ON BED AND FLOOR. PT CLEANED UP, LINENS AND GOWN CHANGED. ADULT BRIEF PROVIDED AND BSC AT BEDSIDE. EVS CALLED TO SANITIZE FLOOR.
[2020-02-18 20:15] VITALS: BP 159/70
--- NOTE | 2020-02-18 20:40 | NUR ---
ADMISSION ASSESEMENT COMPLETED. PT SHIVERING, C/O FEELING VERY COLD, PT COOL TO TOUCH. SpO2 NOT REGISTERING DUE TO HOW COLD PT IS. WARM BLANKETS PROVIDED. WILL SEE IF DIMA HUGGER IS AVAILABLE. SCHEDULED MED ADMINISTERED, SEE E-MAR. PLAN OF CARE REVIEWED W/ PT, PT VERBALIZES UNDERSTANDING AND DENIES QUESTIONS. PERSONAL ITEMS REMAIN WITHIN REACH, BED REMAINLS LOCKED IN LOW POSITION W/ BEDRAILS UP X2 AND BED ALARM ON. CALL BAEZ WITHIN REACH, AGREES TO CALL PRN.
--- NOTE | 2020-02-18 22:00 | NUR ---
PT SETS OFF BED ALARM, FOUND STANDING AT DOOR OF HER ROOM WITH BRIEF ON THE FLOOR AT HER FEET, TELEMETRY HALF OFF AND HANGING OFF OF HER. PT SEEMS AGGITATED. TALKING ABOUT "TELLING THEM DOWN THERE (POINTS TO WINDOW AT END OF HALLWAY) TO STOP. ATTEMPTED TO RE-ORIENT AND REDIRECT PT BACK TO BED. PT PULLS AWAY AND ATTEMPTS TO HIT STAFF UNSUCESSFULY. PT ASSISTED BACK TO BED AND DR. BURKS MADE AWARE. ORDER FOR PRN ATIVAN RECEIVED. ABLE TO RE-ORIENT PT, PT CALM AND AGREES TO [employer]ICK EXTERNAL FEMALE CATHETER FOR MANAGMENT OF HER INCONTINENCE AND URINARY FREQUENCY AND TO DIMA BAUTISTA FOR COMFORT.
[2020-02-18 23:30] VITALS: BP 124/82
--- NOTE | 2020-02-19 00:38 | NUR ---
PT APPEARS TO BE SLEEPING COMFORTABLY. RESPIRATIONS REGULAR AND UNLABORED. PERSONAL ITEMS REMAIN WITHIN REACH. BED REMAINS LOCKED IN LOW POSITION W/ BEDRAILS UP X2 AND BED ALARM ON. CALL BAEZ REMAINS WITHIN REACH.
--- NOTE | 2020-02-19 02:15 | NUR ---
PT WAKES UP, SETS BED ALARM OFF ATTEMPTING TO GET OUT OF BED. REPORTS SHE'S TO HOT. DIMA HUGGER REMOVED. RE-ORIENTED PT TO STAY IN BED, PT AGREES. ASSISTED IN POSITIONING FOR COMFORT. PERSONAL ITEMS REMAIN WITHIN REACH, BED REMAINS LOCKED IN LOW POSITION WITH BEDRAILS UP X2 AND BED ALARM ON. CALL BAEZ REMAINS WITHIN REACH, AGREES TO CALL PRN.
[2020-02-19 03:38] VITALS: BP 157/70
--- NOTE | 2020-02-19 05:16 | NUR ---
RETAIL CLIENT SOLUTIONS ANALYST REPORTS PT HAS WOKEN UP CONFUSED AND MADE ATTEMPTS TO GET OOB 3-4 MORE TIMES SINCE LAST TIME. RETAIL CLIENT SOLUTIONS ANALYST WAS ABLE TO RE-ORIENT PT TO STAY IN BED. AT THIS TIME PT APPEARS TO BE SLEEPING COMFORTABLY. RESPIRATIONS REGULAR AND UNLABORED. PERSONAL ITEMS REMAIN WITHIN REACH. BED REMAINS LOCKED IN LOW POSITION W/ BEDRAILS UP X2 AND BED ALARM ON. CALL BAEZ REMAINS WITHIN REACH.
--- NOTE | 2020-02-19 06:15 | NUR ---
BED ALARM ON, PT STANDING AT SIDE OF BED, CRYING, STATES "I JUST WANT TO KNOW WHO I KILLED", PT CRYING AND IN DISTRESS, COOPERATIVE AND OPEN TO COMFORT. PT RE-ORIENTED TO SURRONDINGS. PT STOPS CRYING AND BECOMES MORE CALM. OFFERED PT TO SET UP TO SIT IN CHAIR. PT STATES "NO, I BETTER GO BACK TO BED". ASSITED TO POSITION IN BED FOR COMFORT. PERSONAL ITEMS REMAIN WITHIN REACH. BED REMAINS LOCKED IN LOW POSITION W/ BEDRAILS UP X2 AND BED ALARM ON. CALL BAEZ REMAINS WITHIN REACH.
--- NOTE | 2020-02-19 06:33 | NUR ---
PT HAS NOT VOIDED SINCE TIME OF ARRIVAL. BLADDER SCAN SHOWS 895ML. PT ASSISTED TO BSC TO SIT AND TRY TO VOID. INSTRUCTED N. NEADS REPORTING SPECIALIST TO STAY WITH PT, MEASURE ANY OUTPUT AND REPORT. HELP PT TO BED AND TURN ON RE-ACTIVATE BED ALARM.
--- NOTE | 2020-02-19 06:44 | NUR ---
Golden ERICKSON AUTO CAMP ATTENDANT REPORTS 100ML URINE OUTPUT PLUS SMALL AMOUNT ON FLOOR. WILL MAKE DR. BURKS AWARE AND ENDORSE TO ONCOMING SHIFT.
[2020-02-19 07:56] VITALS: BP 212/98
--- NOTE | 2020-02-19 08:08 | NUR ---
PT IS A&O X2 BUT CONFUSED AT TIMES. PT IS YELLING FOR SON. REORIENTED PT. PT STATED PAIN IN NECK. MEDICATED PT WITH TYLENOL. IVF INFUSING WELL. TELE IN PLACE. RESPS EVEN AND UNLABORED. SAFETY PRECAUTIONS REINFORCED AND CALL LIGHT IN REACH. BED ALARM IN PLACE.
[2020-02-19 09:08] LABS: ANION GAP 9 (6-22 (CALC)); BUN 9 mg/dL (8-23); BUN/CREATININE RATIO 11 (12-20 (CALC)); CARBON DIOXIDE 24 mmol/l (22-30); CHLORIDE 102 mmol/l (95-108); CREATININE 0.8 mg/dL (0.5-1.0); GFR > 60 ML/MIN (>=60 (CALC)); GFR FOR AFR.AMER. > 60 ML/MIN (>=60 (CALC)); POTASSIUM 3.7 mmol/l (3.5-5.1); SODIUM 131 mmol/l (137-146)
--- NOTE | 2020-02-19 09:30 | NUR ---
NOTIFIED DR. BURKS RE: PT BP 212/98 AND HAD MEDICATED PT WITH APRESOLINE.
[2020-02-19 10:05] VITALS: BP 141/74
--- NOTE | 2020-02-19 11:50 | NUR ---
PT IS SLEEPING IN BED WITH NO S/S OF DISTRESS NOTED. BED ALARM IN PLACE. CALL LIGHT IN REACH.
[2020-02-19 15:00] VITALS: BP 152/68
--- NOTE | 2020-02-19 16:00 | NUR ---
PT IS RESTING IN BED WITH NO S/S OF DISTRESS NOTED. PO FLUIDS PROVIDED. PT DENIES NEEDS AT THIS TIME. CALL LIGHT IN REACH.
[2020-02-19 18:17] VITALS: BP 167/75
--- NOTE | 2020-02-19 19:00 | NUR ---
REPORT RECEIVED FROM Martha ROMANO RN, CARE OF PT ASSUMED AT THIS TIME.
--- NOTE | 2020-02-19 21:10 | NUR ---
PT RESTING IN BED, NO APPARENT DISTRESS, RESPIRATIONS REGULAR AND UNLABORED. PT CONFUSED TO PLACE, RE-ORIENTS EASILY. SCHEDULED MEDICATION ADMINISTERED AND PRN TYLENOL ADMINISTERED FOR C/O ACHING NECK PAIN 11/27. SEE E-MAR. PLAN OF CARE REVIEWED. PT VERBALIZES UNDERSTANDING AND DENIES QUESTIONS. WILL NEED FREQUENT RE-ORIENTATION AND DIRECTION SECONDARY TO HER COGNITIVE LIMITATIONS. PT ASSISTED TO POSITION COMFORTABLY IN BED. DENIES FURTHER NEEDS AND REPORTS SHE IS COMFORTABLE. PERSONAL ITEMS WITHIN REACH. BED LOCKED IN LOW POSITION W/ BEDRAILS UP X2 AND BED ALARM ACTIVATED. CALL BAEZ WITHIN REACH, AGREES TO CALL PRN.
[2020-02-19 23:35] VITALS: BP 160/67
--- NOTE | 2020-02-20 00:45 | NUR ---
PT SLEEPING @ THIS TIME. APPEARS COMFORTABLE AND IN NO DISTRESS. RESPIRATIONS REGULAR AND UNLABORED. PERSONAL ITEMS REMAIN WITHIN REACH. CALL BAEZ REMAINS WITHIN REACH. BED REMAINS LOCKED IN LOW POSITION WITH BEDRAILS UP X2 AND BED ALARM ACTIVATED.
[2020-02-20 03:35] VITALS: BP 162/72
--- NOTE | 2020-02-20 04:40 | NUR ---
AM LABS DRAWN FROM R CHEST PORT. PT APPEARS COMFORTABLE AND IN NO DISTRESS. REMAINS CONFUSED BUT IS CALM, RESTING IN BED WITHOUT TRYING TO GET OOB. RESPIRATIONS REGULAR AND UNLABORED. PERSONAL ITEMS REMAIN WITHIN REACH. CALL BAEZ REMAINS WITHIN REACH. BED REMAINS LOCKED IN LOW POSITION WITH BEDRAILS UP X2 AND BED ALARM ACTIVATED.
[2020-02-20 05:44] LABS: ANION GAP 9 (6-22 (CALC)); BUN 10 mg/dL (8-23); BUN/CREATININE RATIO 13 (12-20 (CALC)); CARBON DIOXIDE 24 mmol/l (22-30); CHLORIDE 101 mmol/l (95-108); CREATININE 0.7 mg/dL (0.5-1.0); GFR > 60 ML/MIN (>=60 (CALC)); GFR FOR AFR.AMER. > 60 ML/MIN (>=60 (CALC)); POTASSIUM 3.7 mmol/l (3.5-5.1); SODIUM 130 mmol/l (137-146)
[2020-02-20 07:58] VITALS: BP 190/92
--- NOTE | 2020-02-20 08:09 | NUR ---
PT IS A&O X1.PT DROWSY STATED TIRED. PT STATED PAIN IN NECK. MEDICATED PT WITH TYLENOL. PO FLUIDS PROVIDED. RESPS EVEN AND UNLABORED. PT DENIES ANY OTHER NEEDS AT THIS TIME. CALL LIGHT IN REACH. BED ALARM IN PLACE.
[2020-02-20 10:30] VITALS: BP 165/71
--- NOTE | 2020-02-20 12:55 | NUR ---
Discharge instructions given. Patient verbalizes understanding of same. Discharged in stable condition via Wheelchair to Home with staff. All belongings sent with pt.
--- NOTE | 2020-02-20 13:02 | NUR ---
REPORT GIVEN TO JAIDEN FROM THE [facility].
--- NOTE | 2020-02-21 14:18 | NUR ---
PT note for 02/18/20 Patient is screened for intervention and it is felt she has no needs at this time
== END 2020-02-20 12:54 ==
LOC: ED 13:54 → ED-I 17:02 → ED 17:18 → ED-I 17:19 → MS2 17:50
PROVIDERS: Family Medicine; ADMIT Internal Medicine; ATTEND Internal Medicine
DX: N39.0 Urinary tract infection, site not specified (principal); G93.49 Other encephalopathy; E87.1 Hypo-osmolality and hyponatremia; I16.0 Hypertensive urgency; I10 Essential (primary) hypertension; E11.9 Type 2 diabetes mellitus without complications; I48.0 Paroxysmal atrial fibrillation; G20 Parkinson's disease; E78.5 Hyperlipidemia, unspecified; R33.9 Retention of urine, unspecified; M54.9 Dorsalgia, unspecified; G89.29 Other chronic pain; Z87.440 Personal history of urinary (tract) infections; Z95.0 Presence of cardiac pacemaker; Z20.828 Contact with and (suspected) exposure to other viral communicable diseases
CPT/HCPCS: G0378; J2060

== ENCOUNTER 2020-03-24 13:43 | Emergency (ER) | payer MEDICARE, OTHER ==
[~2020-03-24] VITALS: Ht 154.9 cm; Wt 60.0 kg
[2020-03-24 14:34] LABS: HEMATOCRIT 30.3 % (37.0-47.0); HEMOGLOBIN 9.8 g/dl (12.0-16.0); IMMATURE GRANULOCYTES 0.3 % (0.0-5.0); MEAN CELL VOLUME 94.1 fL CALC (80.0-100.0); MEAN CORPUSCULAR HGB 30.4 pG CALC (26.0-32.0); MEAN CORPUSCULAR HGB CONC 32.3 g/dL CAL (32.0-36.0); NEUT# 1.52 thou/uL (2.00-7.15); RED BLOOD COUNT 3.22 mill/uL (4.20-5.60); RED CELL DISTRI WIDTH 13.2 % (11.5-15.5)
[2020-03-24 14:53] LABS: ALBUMIN 3.5 g/dL (3.2-5.0); ALKALINE PHOSPHATASE 62 u/l (38-126); ANION GAP 9 (6-22 (CALC)); BUN 9 mg/dL (8-23); BUN/CREATININE RATIO 10 (12-20 (CALC)); CARBON DIOXIDE 27 mmol/l (22-30); CHLORIDE 97 mmol/l (95-108); CREATININE 0.9 mg/dL (0.5-1.0); GFR 60 ML/MIN (>=60 (CALC)); GFR FOR AFR.AMER. > 60 ML/MIN (>=60 (CALC)); POTASSIUM 4.2 mmol/l (3.5-5.1); SGOT/AST 42 u/l (9-36); SODIUM 130 mmol/l (137-146); TOTAL PROTEIN 6.1 g/dL (6.3-8.2)
[2020-03-24 14:54] LABS: PROTHROMBIN TIME 13.8 SECONDS (9.0-12.5)
[2020-03-24 15:10] LABS: BILIRUBIN, TOTAL 0.4 mg/dL (0.0-1.4)
[2020-03-24 15:17] LABS: INTERNATIONAL NORMALIZED RATIO 1.4 RATIO (0.7-1.3)
[2020-03-24 15:19] LABS: ACT PARTIAL THROMBO TIME > 192.4 SECONDS (20.0-32.5)
[2020-03-24 17:58] VITALS: BP 167/74
== END 2020-03-24 17:58 | disposition home or self-care (01) ==
LOC: ED 13:43
PROVIDERS: Student in an Organized Health Care Education/Training Program
DX: R07.9 Chest pain, unspecified (principal); I10 Essential (primary) hypertension; E11.9 Type 2 diabetes mellitus without complications; G20 Parkinson's disease; Z87.11 Personal history of peptic ulcer disease; Z95.0 Presence of cardiac pacemaker

== ENCOUNTER 2020-05-18 09:48 | Observation (INO) | payer MEDICARE, OTHER ==
[~2020-05-18] VITALS: Ht 154.9 cm; Wt 60.0 kg
--- NOTE | 2020-05-18 10:15 | NUR ---
PT BROUGHT BACK TO ROOM PER W/C
[2020-05-18 10:47] LABS: HEMATOCRIT 29.1 % (37.0-47.0); HEMOGLOBIN 9.7 g/dl (12.0-16.0); IMMATURE GRANULOCYTES 0.3 % (0.0-5.0); MEAN CELL VOLUME 92.1 fL CALC (80.0-100.0); MEAN CORPUSCULAR HGB 30.7 pG CALC (26.0-32.0); MEAN CORPUSCULAR HGB CONC 33.3 g/dL CAL (32.0-36.0); NEUT# 1.91 thou/uL (2.00-7.15); RED BLOOD COUNT 3.16 mill/uL (4.20-5.60); RED CELL DISTRI WIDTH 13.2 % (11.5-15.5)
[2020-05-18 11:12] LABS: ALBUMIN 3.5 g/dL (3.2-5.0); ALKALINE PHOSPHATASE 64 u/l (38-126); ANION GAP 9 (6-22 (CALC)); BILIRUBIN, TOTAL 0.4 mg/dL (0.0-1.4); BUN 11 mg/dL (8-23); BUN/CREATININE RATIO 11 (12-20 (CALC)); CARBON DIOXIDE 27 mmol/l (22-30); CHLORIDE 98 mmol/l (95-108); GFR 53 ML/MIN (>=60 (CALC)); GFR FOR AFR.AMER. > 60 ML/MIN (>=60 (CALC)); POTASSIUM 4.4 mmol/l (3.5-5.1); SGOT/AST 31 u/l (9-36); SODIUM 129 mmol/l (137-146); TOTAL PROTEIN 6.2 g/dL (6.3-8.2)
--- NOTE | 2020-05-18 12:16 | NUR ---
PT UP TO BATHROOM,
--- NOTE | 2020-05-18 12:42 | NUR ---
PT UP TO BSC. APPEARS TO BE MORE FORGETFUL AT THIS TIME. STILL KNOWS NAME/BIRTHDAY/WHERE SHE IS AT/ AND PRESIDENT. BUT SHE STATES SHE IS GETTING INSCREASED FORGETTFUL SHE AGES.
--- NOTE | 2020-05-18 13:17 | NUR ---
PT DOWN TO CT. SCSAN
--- NOTE | 2020-05-18 13:41 | NUR ---
PT UP TO BSC AGAIN, PT STATES IS USALLY UP AND DOWN TO BATHROOM EVERY 30 MIN WHEN AT THE [place].
[2020-05-18 14:01] LABS: URINE BILIRUBIN - DIPSTICK NEGATIVE (NEGATIVE); URINE BLOOD DIPSTICK NEGATIVE (NEGATIVE); URINE COLOR YELLOW; URINE GLUCOSE - DIPSTICK NEGATIVE (NEGATIVE); URINE KETONE NEGATIVE (NEGATIVE); URINE LEUK ESTERASE TRACE (NEGATIVE); URINE NITRITE - DIPSTICK NEGATIVE (Negative); URINE PROTEIN - DIPSTICK NEGATIVE (NEG-TRACE); URINE UROBILINOGEN - DIPSTICK 0.2 E.U./dL (0.2)
--- NOTE | 2020-05-18 14:26 | NUR ---
PT TAKEN DOWN TO XRAY AGAIN PER STRETCHER
--- NOTE | 2020-05-18 14:48 | NUR ---
ADVISED OF BLOOD PRESSURE/188/89, NO NEW ORDERS AT THIS TIME
--- NOTE | 2020-05-18 15:30 | NUR ---
ORDER RECEIVED FOR BLOOD PRESSURE MEDICINE FOR B/P OF 188/90
--- NOTE | 2020-05-18 15:52 | NUR ---
PT RESTING QUIETLY ON STRETCHER, WARM BLANKETS GIVEN, LIGHTS TURNED OFF, CALL LIGHT WITHIN REACH
--- NOTE | 2020-05-18 16:23 | NUR ---
SPOKE WITH CHACHO ABOUT B/P, AND HE STATES HE WILL PUT AN ORDER IN TO HELP BRING BLOOD PRESSURE DOWN.
--- NOTE | 2020-05-18 16:40 | NUR ---
NURSE UNAVAILABLE FOR REPORT
--- NOTE | 2020-05-18 16:48 | NUR ---
PT RESTING QUIETLY ON STRETCHER, DENIES ANY CHEST PAIN AT THIS TIME
--- NOTE | 2020-05-18 17:13 | NUR ---
REPORT GIVEN AND PT TAKEN TO FLOOR PER W/C
--- NOTE | 2020-05-18 17:30 | NUR ---
PT REPORT GIVEN AND PT TAKEN TO FLOOR PER STRETCHER AND TELE
--- NOTE | 2020-05-18 17:33 | NUR ---
PT ARRIVED FROM ER VIA STRETCHER ACCOMPANIED BY STAFF. IV SITE IS FREE FROM REDNESS OR EDEMA.
[2020-05-18 18:00] VITALS: BP 185/86
--- NOTE | 2020-05-18 18:10 | NUR ---
ASSESSMENT IS COMPLETED: IV SITE IS FREE FROM REDNESS OR EDEMA. HR IS REG,PULSES ARE STRONG X4, ABD IS SOFT WITH ACTIVE BS. BREATH SOUNDS ARE CLEAR, BILATERALLY. TELE MONITOR IN PLACE . BRIEF IN PLACE. PT HAS A PORT THAT IS ACCESSED.
[2020-05-18 20:20] VITALS: BP 133/58
[2020-05-19 00:04] VITALS: BP 148/63
[2020-05-19 04:20] VITALS: BP 156/76
[2020-05-19 06:44] LABS: HEMATOCRIT 30.2 % (37.0-47.0); HEMOGLOBIN 9.9 g/dl (12.0-16.0); MEAN CELL VOLUME 91.8 fL CALC (80.0-100.0); MEAN CORPUSCULAR HGB 30.1 pG CALC (26.0-32.0); MEAN CORPUSCULAR HGB CONC 32.8 g/dL CAL (32.0-36.0); NEUT# 1.15 thou/uL (2.00-7.15); RED BLOOD COUNT 3.29 mill/uL (4.20-5.60); RED CELL DISTRI WIDTH 13.3 % (11.5-15.5)
[2020-05-19 07:04] LABS: ALKALINE PHOSPHATASE 63 u/l (38-126); ANION GAP 6 (6-22 (CALC)); BILIRUBIN, TOTAL 0.4 mg/dL (0.0-1.4); BUN 9 mg/dL (8-23); CALCULATED LDLCHOLESTEROL 34 mg/dL (62-129 (CALC)); CARBON DIOXIDE 28 mmol/l (22-30); CHLORIDE 103 mmol/l (95-108); CHOLESTEROL HDL RATIO 1.6 (<4.4 (CALC)); HDL CHOLESTEROL 71 mg/dL (>=40); MAGNESIUM 1.6 mg/dL (1.6-2.3); POTASSIUM 4.2 mmol/l (3.5-5.1); SGOT/AST 28 u/l (9-36); SODIUM 134 mmol/l (137-146); TOTAL CHOLESTEROL 115 mg/dl (0-199); TOTAL PROTEIN 5.4 g/dL (6.3-8.2); TOTAL TRIGLYCERIDES 47 mg/dl (30-149); VLDL CHOLESTROL 9 mg/dl (0-48 (CALC))
[2020-05-19 07:11] LABS: CREATININE 0.8 mg/dL (0.5-1.0); GFR > 60 ML/MIN (>=60 (CALC)); GFR FOR AFR.AMER. > 60 ML/MIN (>=60 (CALC))
[2020-05-19 07:19] LABS: BUN/CREATININE RATIO 11 (12-20 (CALC))
[2020-05-19 08:25] VITALS: BP 151/70
--- NOTE | 2020-05-19 08:25 | NUR ---
RECIEVED REPORT FROM MAGDALENA PATTON. PT RESTING IN SEMI FOWLERS POSITION UPON ENTERING ROOM. INTRODUCED SELF TO PT AND DISCUSSED POC. PT IS A/O X2. ASSESSMENT AND VITALS COMPLETED. BP 151/70, HR 71, O2 96% ON ROOM AIR. RESPIRATIONS ARE EVEN AND UNLABORED WITH NO SIGNS OF DISTRESS NOTED. LUNG SOUNDS ARE CLEAR. HEART RHYTHM IS NORMAL WITH TELE IN PLACE. BOWEL SOUNDS ARE ACTIVE IN AL QUADRANTS, LAST REPORETD BM 05/18/2020. RADIAL AND PEDAL PULSES ARE STRONG WITH NORMAL CAPILLARY REFILL. RIGHT CHEST PORT RUNNING WITH IV PER ORDER, SITE APPEARS HEALTHY AND PATENT. PT DENIES OF ANY PAIN OR DISCOMFORTS AT THIS TIME. ALL SAFETY PRECAUTIONS ARE IN PLACE WITH CALL LIGHT IN REACH. WILL CONTINUE TO MONITOR.
--- NOTE | 2020-05-19 08:37 | NUR ---
DR BURKS AT BEDSIDE DISCUSSING POC WITH PT
[2020-05-19 10:51] VITALS: BP 171/81
--- NOTE | 2020-05-19 10:51 | NUR ---
REPORTING BP OF 171/81. RESPIRATIONS ARE EVEN AND UNLABROED WITH NO SIGNS OF DISTRESS. PT DENIES ANY PAIN. ALL SAFETY PRECAUTIONS ARE IN PLACE. WILL CONTINUE TO MONITOR
[2020-05-19 11:56] VITALS: BP 159/76
--- NOTE | 2020-05-19 11:56 | NUR ---
REASSESSMENT OF BP RESUTLING IN 159/76. RESPIRATIONS ARE EVEN AND UNLABORED WITH NO SIGNS OF DISTRESS NOTED. PT DENIES ANY PAIN. AWAITING FOR DC INSTRUCTIONS AT THIS TIME. ALL SAFETY PREACUTIONS ARE IN PLACE . WILL CONTINUE TO MONITOR.
--- NOTE | 2020-05-19 12:57 | NUR ---
PT EDUCEDATED ON DISCHAREG INSTRUCTIONS. PT VERBAILZED UNDERSTANDING. PORT TO BE DEACCESSED BY MAGDALENA GRIMM. ALL SAFETY PRECAUTIONS REMAINS IN PLACE. WILL CONTINUE TO MONITOR
--- NOTE | 2020-05-19 13:21 | NUR ---
REPORT CALLED TO HUMBERTO TORRES.
--- NOTE | 2020-05-19 13:25 | NUR ---
RIGHT CHEST PORT DEACCESSED BY MAGDALENA GRIMM. PT TOLERATED WELL.
--- NOTE | 2020-05-19 13:28 | NUR ---
Discharge instructions given. Patient verbalizes understanding of same. Discharged in stable condition via Wheelchair to [facility] with family. All belongings sent with pt. PT DISCHARGED BACK TO [facility] VIA WHEELCHAIR BY DAUGHTER IN STABLE CONDITION. ALL DISCHARGE INSTRUCTIONS AND BELONGINGS DISCHARGED WITH PT
== END 2020-05-19 13:28 ==
LOC: ED 09:48 → ED-I 15:10 → ED 15:34 → MS2 15:35
PROVIDERS: Family Medicine; Nurse Practitioner; ADMIT Internal Medicine; ATTEND Internal Medicine
DX: R07.9 Chest pain, unspecified (principal); I10 Essential (primary) hypertension; E11.9 Type 2 diabetes mellitus without complications; E78.5 Hyperlipidemia, unspecified; G20 Parkinson's disease; Z87.11 Personal history of peptic ulcer disease; Z20.828 Contact with and (suspected) exposure to other viral communicable diseases
CPT/HCPCS: G0378

== ENCOUNTER 2020-07-20 16:40 | Inpatient (IN) | payer MEDICARE, OTHER ==
[~2020-07-20] VITALS: Ht 154.9 cm; Wt 59.0 kg
[2020-07-20 17:26] LABS: HEMATOCRIT 26.3 % (37.0-47.0); HEMOGLOBIN 8.7 g/dl (12.0-16.0); IMMATURE GRANULOCYTES 0.5 % (0.0-5.0); MEAN CELL VOLUME 91.3 fL CALC (80.0-100.0); MEAN CORPUSCULAR HGB 30.2 pG CALC (26.0-32.0); MEAN CORPUSCULAR HGB CONC 33.1 g/dL CAL (32.0-36.0); NEUT# 6.69 thou/uL (2.00-7.15); RED BLOOD COUNT 2.88 mill/uL (4.20-5.60); RED CELL DISTRI WIDTH 14.6 % (11.5-15.5)
[2020-07-20 17:46] LABS: ACT PARTIAL THROMBO TIME 51.2 SECONDS (20.0-32.5); INTERNATIONAL NORMALIZED RATIO 1.2 RATIO (0.7-1.3)
[2020-07-20 17:53] LABS: ALKALINE PHOSPHATASE 65 u/l (38-126); AMYLASE 55 u/l (30-110); ANION GAP 11 (6-22 (CALC)); BILIRUBIN, TOTAL 0.4 mg/dL (0.0-1.4); BUN 30 mg/dL (8-23); BUN/CREATININE RATIO 18 (12-20 (CALC)); CARBON DIOXIDE 17 mmol/l (22-30); CHLORIDE 101 mmol/l (95-108); CREATININE 1.7 mg/dL (0.5-1.0); ETHYL ALCOHOL 0 mg/dl (0-30); GFR 29 ML/MIN (>=60 (CALC)); GFR FOR AFR.AMER. 35 ML/MIN (>=60 (CALC)); LIPASE 30 u/l (23-300); MAGNESIUM 1.7 mg/dL (1.6-2.3); POTASSIUM 3.9 mmol/l (3.5-5.1); SGOT/AST 28 u/l (9-36); SODIUM 125 mmol/l (137-146); TOTAL PROTEIN 5.9 g/dL (6.3-8.2)
[2020-07-20 18:34] LABS: URINE BILIRUBIN - DIPSTICK NEGATIVE (NEGATIVE); URINE BLOOD DIPSTICK NEGATIVE (NEGATIVE); URINE COLOR YELLOW; URINE GLUCOSE - DIPSTICK NEGATIVE (NEGATIVE); URINE KETONE TRACE mg/dL (NEGATIVE); URINE LEUK ESTERASE SMALL (NEGATIVE); URINE NITRITE - DIPSTICK NEGATIVE (Negative); URINE PH 6.5 (4.5-8.0); URINE PROTEIN - DIPSTICK NEGATIVE (NEG-TRACE); URINE SPECIFIC GRAVITY 1.025; URINE UROBILINOGEN - DIPSTICK 0.2 E.U./dL (0.2)
[2020-07-20 18:44] LABS: URINE AMORPH SEDIMENT MANY hpf (NONE-FEW); URINE BACTERIA MANY hpf; URINE SQUAMOUS EPITHELIAL CELL FEW EPI/hpf (0-FEW)
[2020-07-20 21:00] VITALS: BP 130/66
[2020-07-20 21:15] VITALS: BP 152/62
[2020-07-20 21:30] VITALS: BP 139/60
[2020-07-20 21:45] VITALS: BP 126/61
[2020-07-20 22:00] VITALS: BP 142/64
[2020-07-21] VITALS (15 sets, daily range): BP systolic 122–180; BP diastolic 62–87
[2020-07-21 05:32] LABS: HEMATOCRIT 31.6 % (37.0-47.0); HEMOGLOBIN 10.1 g/dl (12.0-16.0); IMMATURE GRANULOCYTES 0.5 % (0.0-5.0); MEAN CELL VOLUME 93.5 fL CALC (80.0-100.0); MEAN CORPUSCULAR HGB 29.9 pG CALC (26.0-32.0); NEUT# 6.5 thou/uL (2.00-7.15); RED BLOOD COUNT 3.38 mill/uL (4.20-5.60); RED CELL DISTRI WIDTH 14.8 % (11.5-15.5)
[2020-07-21 05:42] LABS: CREATININE 1.2 mg/dL (0.5-1.0)
[2020-07-21 05:56] LABS: POTASSIUM 5.3 mmol/l (3.5-5.1)
[2020-07-21] MEDS ORDERED: CARB/LEVO1 TA4 PO (10:24)
[2020-07-21] MEDS ORDERED: DULOXETINE HYDR60 MG PO (10:24)
[2020-07-21] MEDS ORDERED: SIMVASTATIN20 MG PO (10:25)
[2020-07-21] MEDS ORDERED: NEURONTIN300 MG PO (10:27)
[2020-07-21] MEDS ORDERED: PEPCID20 MG PO (10:28)
[2020-07-21] MEDS ORDERED: LISINOPRIL20 MG PO (10:28)
[2020-07-21] MEDS ORDERED: PRAMIPEXOLE0.125 M1 PO (10:29)
[2020-07-21] MEDS ORDERED: D32000 UNIT PO (10:30)
[2020-07-21] MEDS ORDERED: FOLIC ACID1 MG PO (10:30)
[2020-07-21] MEDS ORDERED: MYSOLINE50 M2 PO (10:32)
[2020-07-21] MEDS ORDERED: TOPIRAMATE25 MG PO (10:32)
[2020-07-21] MEDS ORDERED: DILTIAZEM120 MG PO (10:33)
[2020-07-21] MEDS ORDERED: DITROPAN5 MG/TA1 PO (10:34)
[2020-07-21] MEDS ORDERED: XARELTO15 MG PO (10:35)
[2020-07-21 15:47] LABS: URINE BILIRUBIN - DIPSTICK NEGATIVE (NEGATIVE); URINE BLOOD DIPSTICK SMALL (NEGATIVE); URINE COLOR YELLOW; URINE GLUCOSE - DIPSTICK NEGATIVE (NEGATIVE); URINE KETONE NEGATIVE (NEGATIVE); URINE LEUK ESTERASE MODERATE (NEGATIVE); URINE NITRITE - DIPSTICK POSITIVE (Negative); URINE PROTEIN - DIPSTICK NEGATIVE (NEG-TRACE); URINE UROBILINOGEN - DIPSTICK 0.2 E.U./dL (0.2)
[2020-07-22] VITALS (9 sets, daily range): BP systolic 140–175; BP diastolic 58–86
[2020-07-22 05:49] LABS: HEMATOCRIT 26.6 % (37.0-47.0); IMMATURE GRANULOCYTES 0.5 % (0.0-5.0); MEAN CORPUSCULAR HGB 30.1 pG CALC (26.0-32.0); MEAN CORPUSCULAR HGB CONC 33.8 g/dL CAL (32.0-36.0); NEUT# 4.51 thou/uL (2.00-7.15); RED BLOOD COUNT 2.99 mill/uL (4.20-5.60); RED CELL DISTRI WIDTH 14.9 % (11.5-15.5)
[2020-07-22 06:11] LABS: ALBUMIN 2.6 g/dL (3.2-5.0); ALKALINE PHOSPHATASE 71 u/l (38-126); ANION GAP 9 (6-22 (CALC)); BILIRUBIN, TOTAL 0.5 mg/dL (0.0-1.4); BUN 24 mg/dL (8-23); BUN/CREATININE RATIO 27 (12-20 (CALC)); CARBON DIOXIDE 19 mmol/l (22-30); CHLORIDE 105 mmol/l (95-108); CREATININE 0.9 mg/dL (0.5-1.0); GFR 60 ML/MIN (>=60 (CALC)); GFR FOR AFR.AMER. > 60 ML/MIN (>=60 (CALC)); POTASSIUM 4.7 mmol/l (3.5-5.1); SGOT/AST 28 u/l (9-36); SODIUM 129 mmol/l (137-146); TOTAL PROTEIN 5.2 g/dL (6.3-8.2)
[2020-07-23 04:00] VITALS: BP 175/87
[2020-07-23 04:15] VITALS: BP 154/80
[2020-07-23 05:16] LABS: HEMATOCRIT 24.9 % (37.0-47.0); HEMOGLOBIN 8.2 g/dl (12.0-16.0); IMMATURE GRANULOCYTES 0.2 % (0.0-5.0); MEAN CELL VOLUME 90.2 fL CALC (80.0-100.0); MEAN CORPUSCULAR HGB 29.7 pG CALC (26.0-32.0); MEAN CORPUSCULAR HGB CONC 32.9 g/dL CAL (32.0-36.0); NEUT# 2.58 thou/uL (2.00-7.15); RED BLOOD COUNT 2.76 mill/uL (4.20-5.60); RED CELL DISTRI WIDTH 15.2 % (11.5-15.5)
[2020-07-23 05:34] LABS: ALBUMIN 2.3 g/dL (3.2-5.0); ALKALINE PHOSPHATASE 61 u/l (38-126); ANION GAP 8 (6-22 (CALC)); BILIRUBIN, TOTAL 0.3 mg/dL (0.0-1.4); BUN 14 mg/dL (8-23); BUN/CREATININE RATIO 20 (12-20 (CALC)); CARBON DIOXIDE 21 mmol/l (22-30); CHLORIDE 105 mmol/l (95-108); CREATININE 0.7 mg/dL (0.5-1.0); GFR > 60 ML/MIN (>=60 (CALC)); GFR FOR AFR.AMER. > 60 ML/MIN (>=60 (CALC)); POTASSIUM 4.2 mmol/l (3.5-5.1); SGOT/AST 26 u/l (9-36); SODIUM 130 mmol/l (137-146); TOTAL PROTEIN 4.8 g/dL (6.3-8.2)
[2020-07-23 08:20] VITALS: BP 158/74
[2020-07-23 16:10] VITALS: BP 139/76
[2020-07-23 19:50] VITALS: BP 178/83
[2020-07-23 20:15] VITALS: BP 158/78
[2020-07-24 04:00] VITALS: BP 159/86
[2020-07-24 07:52] VITALS: BP 156/70
[2020-07-24] MEDS ORDERED: SODIUM BICARBI650 MG PO (10:02)
[2020-07-24] MEDS ORDERED: LASIX20 MG PO (10:02)
[2020-07-24] MEDS ORDERED: COZAAR25 MG PO (10:21)
[2020-07-24 15:00] VITALS: BP 152/72
[2020-07-24] MEDS ORDERED: SOD CHLORIDE1 G2 OD (22:51)
[2020-07-25] MEDS ORDERED: SOD CHLORIDE1 G2 PO (09:28)
== END 2020-07-24 16:23 | DRG 100 ==
LOC: ED 16:40 → ED-I 18:00 → ED 18:00 → ED-I 18:04 → ED 18:26 → ICU 18:27 → MS2 18:27
PROVIDERS: ADMIT Internal Medicine; ATTEND Internal Medicine
DX: R56.9 Unspecified convulsions (principal); G92 Toxic encephalopathy; E87.1 Hypo-osmolality and hyponatremia; N39.0 Urinary tract infection, site not specified; I48.0 Paroxysmal atrial fibrillation; G20 Parkinson's disease; F02.80 Dementia in other diseases classified elsewhere, unspecified severity, without behavioral disturbance, psychotic disturbance, mood disturbance, and anxiety; I10 Essential (primary) hypertension; E11.9 Type 2 diabetes mellitus without complications; E78.5 Hyperlipidemia, unspecified; D64.9 Anemia, unspecified; Z20.822 Contact with and (suspected) exposure to COVID-19; Z79.01 Long term (current) use of anticoagulants; Z79.899 Other long term (current) drug therapy; Z95.0 Presence of cardiac pacemaker

== ENCOUNTER 2020-10-24 14:13 | Emergency (ER) | payer MEDICARE, OTHER ==
[~2020-10-24 14:13] MED LIST changes: +COZAAR25 MG PO; +DILTIAZEM120 MG PO; +DULOXETINE HYDR60 MG PO; +LASIX20 MG PO; +MYSOLINE50 M2 PO; +PEPCID20 MG PO; +PRAMIPEXOLE0.125 M1 PO; +SOD CHLORIDE1 G2 OD; +SOD CHLORIDE1 G2 PO; +SODIUM BICARBI650 MG PO; +TOPIRAMATE25 MG PO; +XARELTO15 MG PO
[2020-10-24] MEDS ORDERED: COLACE100 MG PO (15:09)
[2020-10-24 15:21] VITALS: BP 147/85
== END 2020-10-24 15:33 | disposition home or self-care (01) ==
LOC: ED 14:13
DX: K62.3 Rectal prolapse (principal); I10 Essential (primary) hypertension; E11.9 Type 2 diabetes mellitus without complications; G20 Parkinson's disease; E78.5 Hyperlipidemia, unspecified; Z87.11 Personal history of peptic ulcer disease; K44.9 Diaphragmatic hernia without obstruction or gangrene; Z95.0 Presence of cardiac pacemaker

== ENCOUNTER 2020-11-14 09:04 | Observation (INO) | payer MEDICARE, OTHER ==
[~2020-11-14] VITALS: Ht 154.9 cm; Wt 59.7 kg
[~2020-11-14 09:04] MED LIST changes: +COLACE100 MG PO
--- NOTE | 2020-11-14 09:05 | NUR ---
TO ROOM FOR TRIAGE.
--- NOTE | 2020-11-14 09:15 | NUR ---
PATIENT INCONTINENT OF LARGE AMOUNT OF LIQ STOOL X 3 . PERICARE GIVEN,BED CHNGED.
--- NOTE | 2020-11-14 09:48 | NUR ---
CALL [facility] IN [facility]. RESTING
[2020-11-14 10:19] LABS: HEMOGLOBIN 11.6 g/dl (12.0-16.0); IMMATURE GRANULOCYTES 0.3 % (0.0-5.0); MEAN CELL VOLUME 97.4 fL CALC (80.0-100.0); MEAN CORPUSCULAR HGB 29.7 pG CALC (26.0-32.0); MEAN CORPUSCULAR HGB CONC 30.5 g/dL CAL (32.0-36.0); NEUT# 2.25 thou/uL (2.00-7.15); RED BLOOD COUNT 3.9 mill/uL (4.20-5.60); RED CELL DISTRI WIDTH 14.2 % (11.5-15.5)
[2020-11-14 10:21] LABS: ALBUMIN 4.1 g/dL (3.2-5.0); ALKALINE PHOSPHATASE 77 u/l (38-126); BUN 13 mg/dL (8-23); BUN/CREATININE RATIO 13 (12-20 (CALC)); CHLORIDE 106 mmol/l (95-108); GFR 53 ML/MIN (>=60 (CALC)); GFR FOR AFR.AMER. > 60 ML/MIN (>=60 (CALC)); LIPASE 30 u/l (23-300); POTASSIUM 4.5 mmol/l (3.5-5.1); SGOT/AST 70 u/l (9-36); SODIUM 136 mmol/l (137-146)
[2020-11-14 10:29] LABS: ANION GAP 13 (6-22 (CALC)); BILIRUBIN, TOTAL 0.6 mg/dL (0.0-1.4); CARBON DIOXIDE 22 mmol/l (22-30); TOTAL PROTEIN 7.7 g/dL (6.3-8.2)
--- NOTE | 2020-11-14 10:30 | NUR ---
patietn incontinenet of large amount of stool. Sample sent. Pericare and bed changed.
--- NOTE | 2020-11-14 10:54 | NUR ---
attempted to reconcile medications. Patient not a good historian, no list present. Pharmacy consult ordered.
--- NOTE | 2020-11-14 11:03 | NUR ---
PATIENT AWARE OF NEED TO BE ADMITTED
--- NOTE | 2020-11-14 12:28 | NUR ---
report rec from Rory Fisher RN
[2020-11-14] MEDS ORDERED: DONEPEZIL10 MG PO (12:29)
[2020-11-14] MEDS ORDERED: ZOLOFT100 MG PO (12:30)
[2020-11-14] MEDS ORDERED: CORRECTOL100 MG PO (12:30)
--- NOTE | 2020-11-14 12:30 | NUR ---
report called to Aydee NICHOLS in SBAR format.
[2020-11-14] MEDS ORDERED: MYSOLINE50 M1 PO (12:31)
--- NOTE | 2020-11-14 12:39 | NUR ---
PT ARRIVED TO MS VIA STRETCHER ACCOMPANIED BY Rory DURÁN RN. A&O X3 AT THIS TIME. DENIES ANY CURRENT CP. DIRECTOR OF OPTIMIZATION APPLIED #[id number], INITIAL READ PACE 72. #20 LAC WITH IVF TO BE INITIATED; NS @80 ML/HR. NO VISIBLE WOUNDS NOTED, SLIGHT REDNESS NOTED TO COCCYX AND SLIGHTLY FLUSHED APPEARANCE NOTED. PT REPORTS SEVERAL EPISODES OF DIARRHEA THAT STARTED YESTERDAY WORSENING TODAY. STATES CP STARTED WHEN SHE WAS GETTING TO WALK WITH WALKER WITH HER HOME HEALTH NURSE- AGENCY UNKNOWN BY PATIENT AT THIS TIME. PT ASSISTED TO THE BSC, X1 ASSIST. DIARRHEA NOTED, LIGHT BROWN. PT ENCOURAGED TO CALL WHEN SHE FEELS THE URGE TO HAVE A BM AND URINATE, EXPLAINED URINE SAMPLE IS NEEDED. ASSESSMENT COMPLETED. DISCUSSED POC. CALL LIGHT WITHIN REACH. BED ALARM PLACED FOR SAFETY.
--- NOTE | 2020-11-14 12:51 | NUR ---
transferred to room 270 via stretcher,stable upon arrival.
[2020-11-14 13:28] VITALS: BP 174/92
--- NOTE | 2020-11-14 14:08 | NUR ---
Pt screened by ST. ST services not warranted at this time based on chart review. Consult PRN.
[2020-11-14 14:55] VITALS: BP 177/79
--- NOTE | 2020-11-14 16:00 | NUR ---
PT SLEEPING IN BED. CALL LIGHT WITHIN REACH/BED ALARM IN PLACE.
--- NOTE | 2020-11-14 16:39 | NUR ---
PT WOULD BENEFIT FROM SKILLED PT EVALUATION, IF MEDICAL AGREES.
--- NOTE | 2020-11-14 17:06 | NUR ---
URINE SAMPLE OBTAINED BY LENA HOGAN. LABELED AND SENT TO THE LAB
[2020-11-14 17:17] LABS: URINE BILIRUBIN - DIPSTICK NEGATIVE (NEGATIVE); URINE BLOOD DIPSTICK NEGATIVE (NEGATIVE); URINE COLOR YELLOW; URINE GLUCOSE - DIPSTICK NEGATIVE (NEGATIVE); URINE KETONE NEGATIVE (NEGATIVE); URINE LEUK ESTERASE NEGATIVE (NEGATIVE); URINE PH 5.5 (4.5-8.0); URINE PROTEIN - DIPSTICK NEGATIVE (NEG-TRACE); URINE SPECIFIC GRAVITY <=1.005; URINE UROBILINOGEN - DIPSTICK 0.2 E.U./dL (0.2)
[2020-11-14 17:18] LABS: URINE NITRITE - DIPSTICK NEGATIVE (Negative)
[2020-11-14 19:00] VITALS: BP 178/70
--- NOTE | 2020-11-14 19:00 | NUR ---
REPORT RECEIVED FROM Kenya YATES RN, CARE OF PT ASSUMED AT THIS TIME.
[2020-11-14 20:20] VITALS: BP 175/72
--- NOTE | 2020-11-14 20:20 | NUR ---
PT LAYING IN BED SUPINE, PHYSICAL ASSESMENT COMPLETE. DENIES CHEST PAIN/SOB. LUNGS CLEAR, RESPIRATIONS REGULAR AND UNLABORED. DENIES LOOSE STOOLS OR N/V. C/O THROBBING HEADACHE 11/27. NIBP 175/72mmHg, PACED ON TELE. L-AC 20G PATENT AND INFUSING NS @ 80ML/H. PLAN OF CARE REVIEWED, PT VERBALIZES UNDERSTANDING AND DENIES QUESTIONS. PT DENIES NEEDS AT THIS TIME. CALL BAEZ WITHIN REACH, AGREES TO CALL PRN. BED LOCKED IN LOW POSITION WITH BEDRAILS UP X2 AND BED ALARM ENGAGED.
--- NOTE | 2020-11-14 20:26 | NUR ---
MESSAGE LEFT FOR DR. BURKS.
--- NOTE | 2020-11-14 20:38 | NUR ---
ELEVATED NIBP AND C/O NICHOLE REPORTED TO DR. BURKS, PRN ORDER FOR APRESOLINE RECIEVED. SEE CHART.
--- NOTE | 2020-11-14 21:00 | NUR ---
CALL RECEIVED FROM DR. BURKS, SUSPECTS PT'S MED REC IS INNACURRATE, REQUESTS PT'S DAUGHTER BE CALLED TO VERIFY. CALLED PT'S DAUGHTER, REPORTS SHE DOES NOT HAVE ACCESS TO MEDS/MED LIST UNTIL AM AND WILL CALL BACK. DR. BURKS MADE AWARE. REPSONDS HE WILL GET MED REC FROM HIS OFFICE.
--- NOTE | 2020-11-14 21:25 | NUR ---
PRN APRESOLINE ADMINISITERED FOR ELEVATED NIBP AND PRN APAP FOR C/O NICHOLE, SEE E-SEP.
[2020-11-14] MEDS ORDERED: COZAAR25 MG PO (22:09)
[2020-11-14] MEDS ORDERED: SINEMET 10/1001 TA1 PO (22:09)
[2020-11-14] MEDS ORDERED: CYMBALTA30 MG PO (22:10)
[2020-11-14] MEDS ORDERED: CARDIZEM CD120 MG PO (22:10)
[2020-11-14] MEDS ORDERED: FOLIC ACID1 M1 PO (22:10)
[2020-11-14] MEDS ORDERED: MIRTAZAPINE15 MG PO (22:11)
[2020-11-14] MEDS ORDERED: GABAPENTIN300 M2 PO (22:11)
[2020-11-14] MEDS ORDERED: LASIX 20 MG TAB20 MG PO (22:11)
[2020-11-14] MEDS ORDERED: DITROPAN5 MG/TA1 PO (22:11)
[2020-11-14] MEDS ORDERED: PEPCID20 MG PO (22:11)
[2020-11-14] MEDS ORDERED: SOD CHLORIDE1 G2 PO (22:12)
[2020-11-14] MEDS ORDERED: PRAMIPEXOLE0.125 M1 PO (22:12)
[2020-11-14] MEDS ORDERED: PRIMIDONE50 MG PO (22:12)
[2020-11-14] MEDS ORDERED: XARELTO15 MG PO (22:13)
[2020-11-14] MEDS ORDERED: TRAMADOL HCL50 MG PO (22:13)
--- NOTE | 2020-11-14 22:52 | NUR ---
UPDATED MED ORDERS RECEIVED FROM DR. BURKS, SCHEDULED MEDICATIONS ADMINISTERED, SEE E-MAR.
[2020-11-15] VITALS: BP 169/89
--- NOTE | 2020-11-15 00:22 | NUR ---
PT PULLS OUT IV AND REMOVES TELE, IV CATH INTACT. PT CLEANED AND DRIED. PT UP TO BSC. 600ML PALE YELLOW CLEAR URINE EMPTIED FROM BSC. INTACT BLANCHABLE REDNESS TO COCCYX. BARRIER CREAM APPLIED. PT ASSISTED BACK TO BED. MARVIN ANALYTICS ANALYST IN ROOM TO DRAW LABS.
--- NOTE | 2020-11-15 01:06 | NUR ---
TROPONIN RESULTS RECEIVED AND ASSESSED, RESULT <0.012 ng/ml.
--- NOTE | 2020-11-15 03:50 | NUR ---
PT UP TO BSC AND BACK TO BED WITH STANDBY ASSIST. 300ML CLEAR PALE YELLOW URINE EMPTIED FROM BSC.
[2020-11-15 04:00] VITALS: BP 159/80
[2020-11-15 05:40] LABS: HEMATOCRIT 34.3 % (37.0-47.0); IMMATURE GRANULOCYTES 0.2 % (0.0-5.0); MEAN CORPUSCULAR HGB 29.8 pG CALC (26.0-32.0); MEAN CORPUSCULAR HGB CONC 32.1 g/dL CAL (32.0-36.0); NEUT# 1.97 thou/uL (2.00-7.15); RED BLOOD COUNT 3.69 mill/uL (4.20-5.60); RED CELL DISTRI WIDTH 13.9 % (11.5-15.5)
[2020-11-15 06:01] LABS: CHOLESTEROL HDL RATIO 2.3 (<4.4 (CALC)); MAGNESIUM 1.6 mg/dL (1.6-2.3)
--- NOTE | 2020-11-15 06:05 | NUR ---
Peripheral IV started. IV access obtained with #22 AutoGuard at Right Forearm with 1 IV stick attempts. Flushes easily with good blood return.
[2020-11-15 07:20] VITALS: BP 146/71
--- NOTE | 2020-11-15 07:55 | NUR ---
ASSESSMENT IS COMPLETED : PT IS SITTING IN THE CHAIR. AND WANTING TO GO BACK TO BED C/O HEADACHE. IV SITE IS FREE FROM REDNESS OR EDEMA. HR IS REG,PULSES ARE STRONG X4, ABD IS SOFT WITH ACTIVE BS. BREATH SOUNDS ARE CLEAR, BILATERALLY, TELE MONITOR IN PLACE. CONTINUE TO OSBERVE AND MONITOR.
--- NOTE | 2020-11-15 08:05 | NUR ---
PT C/O HEADACHE. WANTING TO GO BACK TO BED. ATE VERY LITTLE. AND DRANK SOME OF HER COFFEE.
[2020-11-15] MEDS ORDERED: VITAMIN D32000 UNI2 PO (09:09)
[2020-11-15] MEDS ORDERED: VOLTAREN1%GEL TOP (09:10)
[2020-11-15] MEDS ORDERED: DONEPEZIL10 MG PO (09:10)
[2020-11-15] MEDS ORDERED: CALCIUM600 M1 PO (09:11)
--- NOTE | 2020-11-15 09:58 | NUR ---
PT IS RESTING IN BED WITH NO DISTRESS NOTED. IV SITE IS FREE FROM REDNESS OR EDEMA.
[2020-11-15 10:30] VITALS: BP 152/64
--- NOTE | 2020-11-15 12:00 | NUR ---
PT IS RELAXING IN BED , CONTINUES TO C/O HEADACHE. GAVE HER THE MEDICATION THAT IS ORDERED WILL RECHECK ON PT AGAIN.
--- NOTE | 2020-11-15 14:26 | NUR ---
SPOKE WITH HER DAUGHTER RE: THE DISCHARGE INSTRUCTIONS WILL BRING PANTS.
--- NOTE | 2020-11-15 15:20 | NUR ---
IV SITE IS REMOVED CATHETER INTACT. NO REDNESS OR EDEMA. DISCHARGE INSTRUCTIONS GIVEN AND VERBALIZED UNDERSTANDING WITH DAUGHTER RADHA. ALSO SCRIPT SENT FOR PAIN
[2020-11-15] MEDS ORDERED: FIORICET PO (15:28)
--- NOTE | 2020-11-15 15:30 | NUR ---
Discharge instructions given. Patient verbalizes understanding of same. Discharged in stable condition via Wheelchair to Home with family. All belongings sent with pt.
== END 2020-11-15 15:29 | disposition home health service (06) ==
LOC: ED 09:04 → ED-I 10:25 → ED 10:44 → MS2 10:45
PROVIDERS: Family Medicine; Nurse Practitioner; ADMIT Internal Medicine; ATTEND Internal Medicine
DX: R07.9 Chest pain, unspecified (principal); R19.7 Diarrhea, unspecified; R51.9 Headache, unspecified; I10 Essential (primary) hypertension; I25.10 Atherosclerotic heart disease of native coronary artery without angina pectoris; E11.65 Type 2 diabetes mellitus with hyperglycemia; I48.91 Unspecified atrial fibrillation; E78.5 Hyperlipidemia, unspecified; G20 Parkinson's disease; I25.2 Old myocardial infarction; Z87.11 Personal history of peptic ulcer disease; Z95.0 Presence of cardiac pacemaker; Z20.822 Contact with and (suspected) exposure to COVID-19
CPT/HCPCS: G0378

== ENCOUNTER 2021-01-01 08:56 | Observation (INO) | payer MEDICARE, OTHER ==
[~2021-01-01] VITALS: Ht 154.9 cm; Wt 64.0 kg
[~2021-01-01 08:56] MED LIST changes: +CALCIUM600 M1 PO; +CARDIZEM CD120 MG PO; +CORRECTOL100 MG PO; +CYMBALTA30 MG PO; +DONEPEZIL10 MG PO; +FIORICET PO; +LASIX 20 MG TAB20 MG PO; +MIRTAZAPINE15 MG PO; +MYSOLINE50 M1 PO; +SINEMET 10/1001 TA1 PO; +TRAMADOL HCL50 MG PO; +VITAMIN D32000 UNI2 PO; +ZOLOFT100 MG PO
--- NOTE | 2021-01-01 08:56 | NUR ---
PATIENT TO ROOM VIA WHEELCHAIR AND PHYSICIAN NOTIFIED OF PATIENT STATUS
[2021-01-01 09:17] LABS: HEMATOCRIT 36.4 % (37.0-47.0); HEMOGLOBIN 11.4 g/dl (12.0-16.0); IMMATURE GRANULOCYTES 0.4 % (0.0-5.0); MEAN CELL VOLUME 95.5 fL CALC (80.0-100.0); MEAN CORPUSCULAR HGB 29.9 pG CALC (26.0-32.0); MEAN CORPUSCULAR HGB CONC 31.3 g/dL CAL (32.0-36.0); NEUT# 5.96 thou/uL (2.00-7.15); RED BLOOD COUNT 3.81 mill/uL (4.20-5.60); RED CELL DISTRI WIDTH 14.6 % (11.5-15.5)
--- NOTE | 2021-01-01 09:30 | NUR ---
To nr with assist tolerated well.
[2021-01-01 09:31] LABS: ALBUMIN 3.8 g/dL (3.2-5.0); ALKALINE PHOSPHATASE 76 u/l (38-126); ANION GAP 11 (6-22 (CALC)); BILIRUBIN, TOTAL 0.5 mg/dL (0.0-1.4); BUN 14 mg/dL (8-23); BUN/CREATININE RATIO 14 (12-20 (CALC)); CARBON DIOXIDE 24 mmol/l (22-30); CHLORIDE 104 mmol/l (95-108); GFR 53 ML/MIN (>=60 (CALC)); GFR FOR AFR.AMER. > 60 ML/MIN (>=60 (CALC)); POTASSIUM 4.1 mmol/l (3.5-5.1); SGOT/AST 35 u/l (9-36); SODIUM 135 mmol/l (137-146); TOTAL PROTEIN 7.4 g/dL (6.3-8.2)
--- NOTE | 2021-01-01 10:14 | NUR ---
patient resting quietly. respirations easy. Report to oncoming RN in SBAR format.
--- NOTE | 2021-01-01 10:56 | NUR ---
PT RESTING, NAD AND VSS, CALL LIGHT IN REACH
--- NOTE | 2021-01-01 12:15 | NUR ---
UNABLE TO VERIFY PATIENTS MEDICATION TIMES OF DOSAGES PATIENT STATES TAKES TOO MANY TO REMEMBER. PHARMACY CONSULT PLACED
--- NOTE | 2021-01-01 13:04 | NUR ---
PT AWAITING BED ON FLOOR
--- NOTE | 2021-01-01 14:45 | NUR ---
REPORT RECEIVED FROM MAGDALENA GANNON
[2021-01-01 15:00] VITALS: BP 180/74
--- NOTE | 2021-01-01 15:00 | NUR ---
PT ARRIVED TO MED/SURG ROOM 278 IN STABLE CONDITION VIA WHEELCHAIR ACCOMPANIED BY MAGDALENA GANNON;PT AMBULATED WITH A WEAK GAIT AND X1 ASSIST TO BATHROOM AND VOIDED 300CC OF CLEAR/YELLOW URINE;PT RE-POSITIONED INTO BED;PT A&O X2, ORIENTED TO ROOM AND CALL LIGHT SYSTEM;PT REPORTS CHEST PAIN THIS MORNING PRIOR TO COMING TO [facility] FOR IV THERPAY;VS AND WT OBTAINED AT THIS TIME;ASSESSMENT COMPLETED;PT DENIES ANY CURRENT PAIN OR DISCOMFORTS,PAIN SCALE AND REPORTING EDUCATED;RESPIRATIONS EVEN AND UNLABORED ON RA,CLEAR LUNG SOUNDS;ABDOMEN SOFT ON PALPATION AND ACTIVE IN ALL 4 QUADRANTS,LAST BM 12/31/20;WEAK PEDAL PULSES;SCABBING NOTED THROUGHOUT BODY,SKIN TEAR TO LUE;PHOTOGRAPH OBTAINED AND WOUND DRESSED AT THIS TIME;TELE MONITORING IN PLACE;RT SUBCLAVIAN CHEST PORT FLUSHED AND PATENT WITH GOOD BLOOD RETURN NOTED;FALL AND ALLERGY BAND APPLIED TO RIGHT ARM;PT DENIES ANY ADDITIONAL NEEDS AT THIS TIME AND IS ENCOURAGED TO CALL FOR ASSISTANCE IF NEEDED;FALL PRECAUTIONS IN PLACE WITH BED IN THE LOWEST POSITION AND BED ALARM ON FOR SAFETY;CALL LIGHT IN REACH;WILL CONTINUE TO MONITOR
--- NOTE | 2021-01-01 16:20 | NUR ---
PT APPEARS TO BE SLEEPING IN SEMI FOWLERS POSITION;NO S/S OF DISTRESS NOTED;RESPIRATIONS EVEN AND UNLABORED ON RA;TELE MONITORING IN PLACE;ALL SAFETY PRECAUTIONS REMAIN IN PLACE WITH BED IN THE LOWEST POSITION AND BED ALARM ON FOR SAFETY;CALL LIGHT IN REACH;WILL CONTINUE TO MONITOR
[2021-01-01 16:42] VITALS: BP 153/89
[2021-01-01 19:07] VITALS: BP 152/78
--- NOTE | 2021-01-01 19:45 | NUR ---
PATIENT RESTING IN BED-POSITIONED ON LEFT SIDE. AWAKE ALERT AND ORIENTEDX3. PATIENT ASKING FOR SIP OF COLD WATER. PATIENT PROVIDED WITH WATER AND AB LE TO DRINK WITHOUT ANY DIFFICULTY. PATIENT WITH TELE MONITOR IN PLACE. RIGHT CHEST PORT ACCESSED AND APPEARS HEALTHY AT THIS TIME. SAFETY PRECAUTIONS REINFORCED. BED ALARM IN PLACE FOR PATIENT SAFETY. CALL LIGHT IN REACH. WILL CONT TO MONITOR.
--- NOTE | 2021-01-01 21:50 | NUR ---
PATIENT ASSISTED FROM BED TO BSC TO VOID QS YELLOW URINE-ASSISTED BACK TO BED. PATIENT UNSTEADY ON HER FEET. ACCU-CHECK TONIGHT WAS 192-COVERED WITH HUMALOG 1UNITS PER SLIDING SCALE COVERAGE PROTOCOL. PROVIDED WITH HS SNACK. PATIENT MEDICATED WITH HS MEDS. SAFETY PRECAUTIONS REINFORCED. BED ALARM IN PLACE FOR PATIENT SAFETY. CALL LIGHT IN REACH. WILL CONT TO MONITOR.
[2021-01-01 22:04] LABS: URINE BILIRUBIN - DIPSTICK NEGATIVE (NEGATIVE); URINE BLOOD DIPSTICK NEGATIVE (NEGATIVE); URINE COLOR YELLOW; URINE GLUCOSE - DIPSTICK NEGATIVE (NEGATIVE); URINE KETONE NEGATIVE (NEGATIVE); URINE PROTEIN - DIPSTICK NEGATIVE (NEG-TRACE); URINE UROBILINOGEN - DIPSTICK 0.2 E.U./dL (0.2)
[2021-01-01 22:06] LABS: URINE LEUK ESTERASE SMALL (NEGATIVE); URINE NITRITE - DIPSTICK POSITIVE (Negative)
[2021-01-01 22:22] LABS: URINE BACTERIA MODERATE hpf; URINE RBC 0-2 RBC/hpf (0-5); URINE SQUAMOUS EPITHELIAL CELL FEW EPI/hpf (0-FEW)
--- NOTE | 2021-01-01 23:45 | NUR ---
PATIENT RESTING IN BED AT THIS TIME WITH HER EYES CLOSED. RESPS ARE EVEN AND UNLABORED. TELE MONITOR IN PLACE. BED ALARM IN PLACE FOR PATIENT SAFETY. CALL LIGHT IN REACH. WILL CONT TO MONITOR.
[2021-01-02] VITALS (8 sets, daily range): BP systolic 130–175; BP diastolic 71–89
--- NOTE | 2021-01-02 00:34 | NUR ---
PATIENT AWAKE RESTING IN BED-C/O SEVERE H/A-10/10 ON PAIN SCALE. MEDICATED WITH ULTRAM 50MG PO FOR PAIN. LAB WORK DRAWN FROM RIGHT UPPER CHEST PORT-GOOD BLOOD RETURN. FLUSHED AFTER BLOOD DRAW WITH NS AND HEP SOLUTION PER PROTOCOL. PATIENT ASSIST TO BSC TO VOID AND THEN ASSISTED BACK TO BED. BED ALARM IN PLACE FOR PATIENT SAFETY. CALL LIGHT IN REACH. WILL CONT TO MONITOR.
--- NOTE | 2021-01-02 04:13 | NUR ---
PATIENT RESTING IN BED AT THIS TIME WIOTH EYES CLOSED. RESPS ARE EVEN AND UNLABORED. TELE MONITOR IN PLACE. RIGHT UPPEER CHEST PORT INTACT. BED ALARM IN PLACE FOR PATIENT SAFETY. CALL LIGHT IN REACH. WILL CONT TO MONITOR.
--- NOTE | 2021-01-02 04:43 | NUR ---
PATIENT ASSISTED OOB TO THE BSC TO VOID. STILL UNSTEADY ON HER FEET. ASSISTED BACK TO BED. WEARTING PERIPAD FOR STRESS INCONT. CONT TO HAVE SEVERE HEADACHE-10/10 ON PAIN SCALE. MEDICATED WITH TYLENOL 650MG PO. BLOOD DRAWN FROM RIGHT UPPER CHEST PORT WITHOUT ANY DIFFICULTY. GOOD BLOOD RETURN. FLUSHED WITH NS AND HEP MATT PER PROTOCOL AFTER BLOOD DRAW. BED ALARM IN PLACE FOR PATIENT SAFETY. CALL LIGHT IN REACH. WILL CONT TO MONITOR.
--- NOTE | 2021-01-02 05:56 | NUR ---
PATIENT RESTING IN BED WITH LAO NEEDLE DISLODGED FROM TIGHT UPPER CHEST PORT. REACCESSED RIGHT UPPER CHEST PORT BY FRANCIE MONTENEGRO RN WITH GOOD BLOOD RETURN. FLUSHED WITH NS AND HEP SOLUTIONS PER PROTOCOL. PATIENT STATES THAT SHE HAS HAD SOME RELEIF FROM TYLENOL GIVEN FOR HEADACHE. BED ALARM IN PLACE FOR PATIENT SAFETY. CALL LIGHT IN REACH. WILL CONT TO MONITOR.
[2021-01-02 06:12] LABS: HEMATOCRIT 37.6 % (37.0-47.0); HEMOGLOBIN 11.7 g/dl (12.0-16.0); IMMATURE GRANULOCYTES 0.3 % (0.0-5.0); MEAN CELL VOLUME 93.8 fL CALC (80.0-100.0); MEAN CORPUSCULAR HGB 29.2 pG CALC (26.0-32.0); MEAN CORPUSCULAR HGB CONC 31.1 g/dL CAL (32.0-36.0); NEUT# 6.79 thou/uL (2.00-7.15); RED BLOOD COUNT 4.01 mill/uL (4.20-5.60); RED CELL DISTRI WIDTH 14.3 % (11.5-15.5)
[2021-01-02 06:17] LABS: ALBUMIN 3.9 g/dL (3.2-5.0); BILIRUBIN, TOTAL 0.6 mg/dL (0.0-1.4); CHOLESTEROL HDL RATIO 2.3 (<4.4 (CALC)); CREATININE 1.1 mg/dL (0.5-1.0); MAGNESIUM 1.8 mg/dL (1.6-2.3); POTASSIUM 4.5 mmol/l (3.5-5.1); TOTAL PROTEIN 7.4 g/dL (6.3-8.2)
--- NOTE | 2021-01-02 06:55 | NUR ---
REPORT RECEIVED FROM MAGDALENA BAER
--- NOTE | 2021-01-02 09:10 | NUR ---
PT APPEARS TO BE SLEEPING, AWAKES WITH VERBAL STIMULI AND IS A&O X2;PT NOTED TO BE VERY DROWSY BUT ANSWERS APPROPRIATELY;STROKE ASSESSMENT COMPLETED AND IS NEGATIVE AT THIS TIME;VS OBTAINED AND ASSESSMENT COMPLETED;PT DENIES ANY CURRENT PAIN OR DISCOMFORTS,PAIN SCALE AND REPORTING EDUCATED;RESPIRATIONS EVEN AND UNLABORED ON RA,CLEAR LUNG SOUNDS;ABDOMEN SOFT ON PALPATION AND ACTIVE IN ALL 4 QUADRANTS;WEAK PEDAL PULSES;DRESSING TO LFA CDI;RIGHT SUBCLAVIAN CHEST PORT FLUSHED AND PATENT,SITE APPEARS HEALTHY;TELE MONITORING IN PLACE;ACCUCHECK 102;PT DENIES ANY ADDITIONAL NEEDS AND REQUESTS TO SLEEP;FALL PRECAUTIONS IN PLACE WITH BED IN THE LOWEST POSITION AND BED ALARM ON FOR SAFETY;CALL LIGHT IN REACH;WILL CONTINUE TO MONITOR
--- NOTE | 2021-01-02 10:00 | NUR ---
SCREEN PERFORMED AND PATIENT MAY BENEFIT FROM P.T. EVALUATION.
--- NOTE | 2021-01-02 11:42 | NUR ---
PT REPORTS HEADACHE PAIN RATING 8/10 ON THE PAIN SCALE AND REQUESTS PAIN MEDICATION,PT MEDICATED WITH PRN TYLENOL 650MG PO AT THIS TIME;WILL CONTINUE TO MONITOR FOR EFFECTIVENESS
--- NOTE | 2021-01-02 12:00 | NUR ---
PT OOB RESTING IN RECLINER;RESPIRATIONS EVEN AND UNLABORED ON RA;PT DENIES ANY CURRENT PAIN OR DISCOMFORTS;TELE MONITORING IN PLACE;RT SUBCLAVIAN CHEST PORT PATENT;PT DENIES ANY CURRENT NEEDS AT THIS TIME;ENCOURAGED TO CALL FOR ASSISTANCE IF NEEDED;FALL PRECAUTIONS IN PLACE WITH BED ALARM ON FOR SAFETY;CALL LIGHT IN REACH;WILL CONTINUE TO MONITOR
--- NOTE | 2021-01-02 15:20 | NUR ---
PT APPEARS TO BE SLEEPING IN SEMI FOWLERS POSITION;RESPIRATIONS EVEN AND UNLABORED ON RA;NO S/S OF DISTRESS NOTED;TELE MONITORING IN PLACE;RT SUBCLAVIAN PORT APPEARS PATENT;ALL SAFETY PRECAUTIONS REMAIN IN PLACE WITH BED IN THE LOWEST POSITION AND CALL LIGHT IN REACH;WILL CONTINUE TO MONITOR
--- NOTE | 2021-01-02 17:12 | NUR ---
PT C/O CHEST PAIN ON THE LEFT MID CHEST. VS: BP 175/89,HR IS 67 O2 IS 99%., HAVE CALLED FOR AN EKG TO FOLLOW UP.
--- NOTE | 2021-01-02 17:14 | NUR ---
CHACHO TRENT INFORMED OF THE VS AND EKG.
--- NOTE | 2021-01-02 17:19 | NUR ---
RT AT BEDSIDE OBTAINING EKG.
--- NOTE | 2021-01-02 17:37 | NUR ---
NOTIFIED OF PT CHEST PAIN, EKG AND CURRENT BP. NO NEW ORDERS RECEIVED AT THIS TIME;WILL CONTINUE TO MONITOR
--- NOTE | 2021-01-02 19:31 | NUR ---
PATIENT SITTING UP ON THE BSC AT THIS TIME-AWAKE ALERT AND ORIENTED TO PERSON AND PLACE. COLOR IS PALE. SKIN IS WARM AND DRY. VOIDED 200CC OF YELLOW URINE-BEING TREATED FOR UTI. STARTED ON ROCEPHIN TODAY. ENCOURAGED PO FLUIDS. ASSISTED BACK TO THE BED-STILL UNSTEADY ON HER FEET. BANDAID TO LEFT FOREARM INTACT. RIGHT UPPER CHEST PORT ACCESSED-SITE APPEARS HEALTHY AT THIS TIME. LUNGS ARE CLEAR. ABD IOS SOFT WITH ACTIVE BS. NO PERIPHERAL EDEMA NOTED. SAFETY PRECAUTIONS REINFORCED. BED ALARM IN PLACE FOR PATIENT SAFETY. CALL LIGHT IN REACH. WILL CONT TO MONITOR.
--- NOTE | 2021-01-02 20:57 | NUR ---
PATIENT RESTING IN XCR-XQVN-SWATO IS `184-COVERED WITH HUMALOG 1UNITS SQ PER SS PROTOCOL. MEDICATED FOR HEADACHE WITH TYLENOL 650MG PO FOR 8/10 ON PAIN SCALE. WHILE ASSISTING PATIENT TO BSC PATIENT INCONT OF MODERATE AMT OF LOOSE BROWN STOOL. PATIENT PROVIDED WITH PERSONAL HYGEINE CARE WITH SOAP AND WATER. GOWN WAS CHANGED. ASSISTED BACK INTO BED. STILL UNSTEADY ON HER FEET. SAFETY PRECAUTIONS REINFORCED. BED ALARM IN PLACE FOR PATIENT SAFETY. PROVIDED WITH HS SNACK. CALL LIGHT IN REACH. WILL CONT TO MONITOR.
--- NOTE | 2021-01-02 23:49 | NUR ---
PATIENT RESTING IN BED AT THIS TIME WITH EYES CLOSED. RESPS ARE EVEN AND UNLABORED. TELE MONITOR IN PLACE. CALL LIGHT IN REACH. BED ALARM IN PLACE FOR PATIENT SAFETY. WILL CONT TO MONITOR.
[2021-01-03] VITALS: BP 124/76
[2021-01-03 04:00] VITALS: BP 139/80
--- NOTE | 2021-01-03 04:19 | NUR ---
PATIENT RESTING IN BED-APPEARS SLEEPING WITH EYES CLOSED. RESPS ARE EVEN AND UNLABORED. TELE MONITOR IN PLACE-LAST READING WAS PACED 66. BED ALARM IN PLACE FOR PATIENT SAFETY. CALL LIGHT IN REACH. WILL CONT TO MONITOR.
[2021-01-03 05:23] LABS: HEMATOCRIT 34.6 % (37.0-47.0); MEAN CORPUSCULAR HGB 29.6 pG CALC (26.0-32.0); MEAN CORPUSCULAR HGB CONC 31.8 g/dL CAL (32.0-36.0); RED BLOOD COUNT 3.72 mill/uL (4.20-5.60); RED CELL DISTRI WIDTH 14.1 % (11.5-15.5)
[2021-01-03 06:33] LABS: CREATININE 1.2 mg/dL (0.5-1.0); MAGNESIUM 1.8 mg/dL (1.6-2.3); POTASSIUM 4.5 mmol/l (3.5-5.1)
[2021-01-03 07:55] VITALS: BP 172/84
--- NOTE | 2021-01-03 07:55 | NUR ---
ASSESSMENT IS COMPLETED: IV SITE IS FREE FROM REDNESS OR EDEMA. HR IS REG,PULSES ARE STRONG X4, ABD IS SOFT WITH ACTIVE BS. BREATH SOUNDS ARE CLEAR,BILATERALLY, NO C/O SOB. ONLY C/O HEADACHE AND LEFT SHOULDER PAIN,
--- NOTE | 2021-01-03 09:30 | NUR ---
DR HARPER IN TO VISIT WITH PT. ALSO CHACHO TRENT SPOKE WITH HER DAUGHTER RE: PLANS TO STAY 1 MORE DAY.
[2021-01-03 10:30] VITALS: BP 142/70
--- NOTE | 2021-01-03 12:30 | NUR ---
PT IS RELAXING IN BED WITH NO DISTRESS NOTED. IV SITE IS FREE FROM REDNESS OR EDEMA.
[2021-01-03 14:00] VITALS: BP 152/77
--- NOTE | 2021-01-03 14:16 | NUR ---
PT PICKED AT SCABS ON HER FACEA ND R EAR, MADE THEM BLEED/. CLEANED UP BY ASSISTANT IN NURSING AND PLACED A BANDAID .
--- NOTE | 2021-01-03 16:30 | NUR ---
PT HAS BEEN RELAXING OFF AND ON TODAY. NO DISTRESS NOTED. CONTINUE TO OBSERVE AND MONITOR.
[2021-01-03 19:00] VITALS: BP 156/79
--- NOTE | 2021-01-03 20:00 | NUR ---
PATIENT RESTING IN BED AT THIS TIME-AWAKE ALERT AND ORIENTED TO PERSON AND PLACE. TELE MONITOR IN PLACE-LAST READING WAS PACED 70. RIGHT UPPER CHEST PORT ACCESSED AND REMAINS HEALTHY AT THIS TIME. BED ALARM IN PLACE FOR PATIENT SAFETY. PATIENT CONT TO NEED ASSIST TO THE BSC TO VOID. UNSTEADY ON HER FEET. SAFETY PRECAUTIONS REINFORCED. CALL LIGHT IN REACH. WILL CONT TO MONITOR.
[2021-01-04] VITALS: BP 147/75
--- NOTE | 2021-01-04 00:20 | NUR ---
PATIENT RESTING IN BED AT THIS TIME WITH EYES CLOSED. RESPS ARE EVEN AND UNLABORED. TELE MONITOR IN PLACE. CALL LIGHT IN REACH. BED ALARM IN PLACE FOR PATIENT SAFETY. CALL LIGHT IN REACH. WILL CONT TO MONITOR.
--- NOTE | 2021-01-04 02:15 | NUR ---
PATIENT RESTING IN BED WITH SHEET OVER HER HEAD. RESPS ARE EVEN AND UNLABORED AT THIS TIME. TELE MONITOR IN PLACE. CALL LIGHT IN REACH. BED ALARM IN PLACE FOR PATIENT SAFETY. WILL CONT TO MONITOR.
[2021-01-04 04:00] VITALS: BP 132/73
--- NOTE | 2021-01-04 04:13 | NUR ---
PATIENT RESTING INBED. LAB WORK DRAWN FROM RIGHT UPPER CHEST PORT WITHOUT ANY DIFFICULTY-GOOD BLOOD RETURN. FLUSHED WITH SALINE AND HEPARIN FLUSH PER PROTOCOL. BED ALARM REMAINS IN PLACE FOR PATIENT SAFETY. CALL LIGHT IN REACH. WILL CONT TO MONITOR.
[2021-01-04 05:35] LABS: HEMATOCRIT 34.4 % (37.0-47.0); HEMOGLOBIN 11.3 g/dl (12.0-16.0); MEAN CELL VOLUME 91.5 fL CALC (80.0-100.0); MEAN CORPUSCULAR HGB 30.1 pG CALC (26.0-32.0); MEAN CORPUSCULAR HGB CONC 32.8 g/dL CAL (32.0-36.0); RED BLOOD COUNT 3.76 mill/uL (4.20-5.60); RED CELL DISTRI WIDTH 14.1 % (11.5-15.5)
[2021-01-04 06:03] LABS: CREATININE 1.2 mg/dL (0.5-1.0); MAGNESIUM 1.9 mg/dL (1.6-2.3); POTASSIUM 4.4 mmol/l (3.5-5.1)
[2021-01-04 07:50] VITALS: BP 125/74
--- NOTE | 2021-01-04 07:50 | NUR ---
ASSESSMENT IS COMPLETED: IV SITE IS FREE FROM REDNESS OR EDEMA. HR IS REG,PULSES ARE STRONG X4, ABD IS SOFT WITH ACTIVE BS, BREATH SOUNDS ARE CLEAR BILATERALLY, TELE MONITOR IN PLACE. CONTINUE TO OSBERVE AND MONITOR.
--- NOTE | 2021-01-04 10:16 | NUR ---
SPOKE WITH HER DAUGHTER RE: PLANS FOR DISCHARGE.
[2021-01-04 10:58] VITALS: BP 146/69
--- NOTE | 2021-01-04 12:30 | NUR ---
PT HAS BEEN IN THE CHAIR AND THEN BACK TO BED WITH NO DISTRESS NOTED. IV SITE IS FREE FROM REDNESS OR EDEMA.
[2021-01-04 14:35] VITALS: BP 146/74
--- NOTE | 2021-01-04 15:47 | NUR ---
INFORMED PT FAMILY RE: LAMINATOR HAND TIME IS [address] [facility].
[2021-01-04] MEDS ORDERED: TRAMADOL HCL50 MG PO (15:49)
[2021-01-04] MEDS ORDERED: OMNICEF300 MG PO (15:51)
--- NOTE | 2021-01-04 18:00 | NUR ---
IV SITE DISCONTINEUD BY LUCINDA NICHOLS CONTINUE TO OBSERVE AND MONITOR.
--- NOTE | 2021-01-04 19:09 | NUR ---
SPOKE WITH VIVI NICHOLS AT [facility], MOIRA CAME AND PICKED UP PT. WITH ALL BELONGINGS FAMILY IS AWARE. WILL BRING HER CLOTHES AND CELL PHONE TOMORROW. Discharge instructions given. Patient verbalizes understanding of same. Discharged in stable condition via Medical Transport to *Other with *Other. All belongings sent with pt.
== END 2021-01-04 19:04 ==
LOC: ED 08:56 → ED-I 11:15 → ED 12:41 → MS2 12:42
PROVIDERS: Family Medicine; Internal Medicine; Nurse Practitioner; ADMIT Internal Medicine; ATTEND Internal Medicine
DX: R07.9 Chest pain, unspecified (principal); N39.0 Urinary tract infection, site not specified; G93.41 Metabolic encephalopathy; I10 Essential (primary) hypertension; E11.9 Type 2 diabetes mellitus without complications; I48.0 Paroxysmal atrial fibrillation; E78.5 Hyperlipidemia, unspecified; G20 Parkinson's disease; B96.20 Unspecified Escherichia coli [E. coli] as the cause of diseases classified elsewhere; Z87.11 Personal history of peptic ulcer disease; Z95.0 Presence of cardiac pacemaker; Z79.01 Long term (current) use of anticoagulants; Z87.440 Personal history of urinary (tract) infections; Z20.822 Contact with and (suspected) exposure to COVID-19; N18.4 Chronic kidney disease, stage 4 (severe); D63.1 Anemia in chronic kidney disease; Z45.2 Encounter for adjustment and management of vascular access device
CPT/HCPCS: G0378

== ENCOUNTER 2021-02-12 19:41 | Observation (INO) | payer MEDICARE, OTHER ==
[~2021-02-12] VITALS: Ht 154.9 cm; Wt 68.0 kg
[~2021-02-12 19:41] MED LIST changes: +OMNICEF300 MG PO
--- NOTE | 2021-02-12 19:50 | NUR ---
ABRASION AND SWELLING NOTED TO RIGHT SIDE OF FASE - HEALING. PT REPORTS THAT SHE WOKE UP WITH THAT AND DOES NOT KNOW HOW IT OCCURED.
[2021-02-12 20:30] LABS: HEMATOCRIT 27.8 % (37.0-47.0); HEMOGLOBIN 8.9 g/dl (12.0-16.0); IMMATURE GRANULOCYTES 0.2 % (0.0-5.0); MEAN CELL VOLUME 96.2 fL CALC (80.0-100.0); MEAN CORPUSCULAR HGB 30.8 pG CALC (26.0-32.0); NEUT# 6.06 thou/uL (2.00-7.15); RED BLOOD COUNT 2.89 mill/uL (4.20-5.60); RED CELL DISTRI WIDTH 14.3 % (11.5-15.5)
--- NOTE | 2021-02-12 20:32 | NUR ---
PATIENT'S DAUGHTER CALLED TO REPORT THAT JAM VERA REQUESTED THAT SHE HOLDS THE XARELTO UNTIL STOOL TEST FOR BLOOD IS COMPLETED. DAUGHTER REPORTS THAT STOOL SAMPLE WAS NOT YET COLLECTED.
[2021-02-12 20:46] LABS: ALBUMIN 3.4 g/dL (3.2-5.0); ALKALINE PHOSPHATASE 57 u/l (38-126); BUN 16 mg/dL (8-23); BUN/CREATININE RATIO 16 (12-20 (CALC)); CHLORIDE 102 mmol/l (95-108); GFR 53 ML/MIN (>=60 (CALC)); GFR FOR AFR.AMER. > 60 ML/MIN (>=60 (CALC)); SGOT/AST 32 u/l (9-36); SODIUM 132 mmol/l (137-146); TOTAL PROTEIN 6.8 g/dL (6.3-8.2)
[2021-02-12 20:52] LABS: ANION GAP 11 (6-22 (CALC)); BILIRUBIN, TOTAL 0.3 mg/dL (0.0-1.4); CARBON DIOXIDE 23 mmol/l (22-30)
[2021-02-12 20:58] LABS: MYOGLOBIN 36 ng/mL (0 - 62)
--- NOTE | 2021-02-12 21:11 | NUR ---
ER MD ORTIZ DID A RECTAL AT BEDSIDE NEGATIVE
--- NOTE | 2021-02-12 21:27 | NUR ---
RN STRAIGHT CATH AT BEDSIDE
--- NOTE | 2021-02-12 21:43 | NUR ---
PT AGREES WITH PLAN FOR ADMIT. TELE BOX 8712 IN USE. PT REPORT PAIN IN CHEST RESOLVED. LEFT SHOULDER PAIN 10/28. JOHN. NICHOLS ON [employer] WILL CALL BACK FOR REPORT
--- NOTE | 2021-02-12 22:00 | NUR ---
REPORT GIVEN TO BRIEN ON [employer] FOR ADMISSION. UPDATE GIVEN TO LAMAR GARCIA VIA PHONE CALL THAT PATIENT IS BEING ADMITED.
[2021-02-12 22:17] LABS: URINE BILIRUBIN - DIPSTICK NEGATIVE (NEGATIVE); URINE BLOOD DIPSTICK NEGATIVE (NEGATIVE); URINE COLOR YELLOW; URINE GLUCOSE - DIPSTICK NEGATIVE (NEGATIVE); URINE KETONE NEGATIVE (NEGATIVE); URINE LEUK ESTERASE NEGATIVE (NEGATIVE); URINE NITRITE - DIPSTICK NEGATIVE (Negative); URINE PROTEIN - DIPSTICK NEGATIVE (NEG-TRACE); URINE UROBILINOGEN - DIPSTICK 0.2 E.U./dL (0.2)
--- NOTE | 2021-02-12 22:27 | NUR ---
PATIENT TAKEN TO FLOOR BY THIS RN ON STRETCHER WITH BELONGINGS. TELE BOX IN USE . NO DISTRESS. VSS.
[2021-02-12 22:30] VITALS: BP 201/83
--- NOTE | 2021-02-12 22:30 | NUR ---
PT RECEIVED FROM ED TO ROOM 280. ARRIVES VIA STRETCHER ACCOMPANIED BY RN. PT TRANSFERED TO BED. GAIT UNSTEADY. PT DENIES PAIN AT THIS TIME. ORIENTED TO UNIT, ROOM, CALL BAEZ, LIGHTS, TV. ICE WATER PROVIDED. CALL BAEZ WITHIN REACH. AGREES TO CALL PRN.
--- NOTE | 2021-02-12 23:00 | NUR ---
PT SUPINE IN BED, AWAKE AND CALM, NO APPARENT DISTRESS. PHYSICAL ASSESMENT COMPLETE. SCHEDULED MEDICATIONS ADMINISTERED, SEE E-MAR. PLAN OF CARE REVIEWED WITH PT. PT C/O 01/27 LEFT SHOULDER PAIN. BP IS 193/87. LABETOLOL ORDERED AND WILL BE ADMINISTERED ONCE IS CLEARS PHARMACY. AT THIS TIME PT VERBALIZES UNDERSTANDING AND DENIES QUESTIONS. DENIES NEEDS AT THIS TIME. CALL BAEZ WITHIN REACH, AGREES TO CALL PRN.
[2021-02-12 23:15] VITALS: BP 193/87
--- NOTE | 2021-02-13 | NUR ---
PT LAYING IN BED WITH EYES CLOSED, APPEARS TO BE SLEEPING, APPEARS COMFORTABLE AND IN NO DISTRESS. RESPIRATIONS REGULAR AND UNLABORED. ITEMS REMAIN WITHIN REACH, CALL BAEZ REMAINS WITHIN REACH. BED REMAINS LOCKED AND IN LOW POSITION WITH BEDRAILS UP X2. WILL CONTINUE TO MONITOR.
--- NOTE | 2021-02-13 04:03 | NUR ---
PT RESTING IN BED, NO SIGNS OF DISTRESS NOTED, RESP EVEN AND UNLABORED. PT VOICES NO NEEDS OR COMPLAINTS AT THIS TIME. CALL LIGHT IN REACH, CONTINUE TO MONITOR. -
[2021-02-13 04:14] VITALS: BP 152/76
[2021-02-13 05:50] LABS: HEMATOCRIT 30.8 % (37.0-47.0); IMMATURE GRANULOCYTES 0.1 % (0.0-5.0); MEAN CELL VOLUME 94.8 fL CALC (80.0-100.0); MEAN CORPUSCULAR HGB 30.8 pG CALC (26.0-32.0); MEAN CORPUSCULAR HGB CONC 32.5 g/dL CAL (32.0-36.0); NEUT# 6.81 thou/uL (2.00-7.15); RED BLOOD COUNT 3.25 mill/uL (4.20-5.60); RED CELL DISTRI WIDTH 14.3 % (11.5-15.5)
[2021-02-13 06:34] LABS: CREATININE 1.3 mg/dL (0.5-1.0)
[2021-02-13 06:39] LABS: POTASSIUM 4.5 mmol/l (3.5-5.1)
--- NOTE | 2021-02-13 07:25 | NUR ---
REPORT RECEIVED FROM MAGDALENA TESFAYE
[2021-02-13 09:35] VITALS: BP 160/77
--- NOTE | 2021-02-13 09:35 | NUR ---
PT RESTING IN SEMI FOWLERS POSITION,A&O X2;VS OBTAINED AND ASSESSMENT COMPLETED;PT DENIES ANY CURRENT PAIN OR DISCOMFORTS,PAIN SCALE AND REPORTING EDUCATED;RESPIRATIONS EVEN AND UNLABORED ON RA,CLEAR LUNG SOUNDS;ABDOMEN SOFT ON PALPATION AND ACTIVE IN ALL 4 QUADRANTS;WEAK PEDAL PULSES;SKIN INTACT;TELE MONITORING IN PLACE;RT UPPER CHEST PORT FLUSHED AND PATENT, NS STARTED @ 75ML/HR,SITE APPEARS HEALTHY;PT DENIES ANY ADDITIONAL NEEDS AND IS ENCOURAGED TO CALL FOR ASSISTANCE IF NEEDED;FALL PRECAUTIONS IN PLACE WITH BED IN THE LOWEST POSITION AND BED ALARM ON FOR SAFETY;CALL LIGHT IN REACH;WILL CONTINUE TO MONITOR
[2021-02-13 10:40] VITALS: BP 158/70
--- NOTE | 2021-02-13 11:20 | NUR ---
PT RESTING IN SEMI FOWLERS POSITION;RESPIRATIONS EVEN AND UNLABORED ON RA;PT DENIES ANY CURRENT PAIN OR DISCOMFORTS;TELE MONITORING IN PLACE;IV SITE PATENT INFUSING NS WITH EASE PER ORDER;ACCUCHECK 153, PT REFUSED COVERAGE AT THIS TIME;PT EDUCATED ON PLANS TO D/C HOME THIS AFTERNOON AND VERBALIZES UNDERSTANDING;PT ENCOURAGED TO CALL FOR ASSISTANCE IF NEEDED;FALL PRECAUTIONS REMAIN IN PLACE WITH BED ALARM ON FOR SAFETY;CALL LIGHT IN REACH;WILL CONTINUE TO MONTIOR
--- NOTE | 2021-02-13 12:30 | NUR ---
ALL DISCHARGE INSTRUCTIONS PROVIDED AT THIS TIME;PT INSTRUCTED TO F/U WITH PCP,NEPHROLOGY, AND CARDIOLOGY.TAKE ALL HOME ROUTINE MEDICATIONS;PT DENIES ANY ADDITIONAL QUESTIONS OR NEEDS;RT UPPER CHEST PORT TO BE DEACCESSED BY MAGDALENA BA.TELE MONITORING D/C AT THIS TIME;WHEELCHAIR TO BE PROVIDED FOR D/C HOME;DAUGHTER TO TRANSPORT PT HOME;WILL CONTINUE TO MONITOR
--- NOTE | 2021-02-13 13:27 | NUR ---
Discharge instructions given. Patient verbalizes understanding of same. Discharged in stable condition via Wheelchair to Home with family. All belongings sent with pt. [facility] VIA ACCOMPANIED BY WRITTER.ALL BELONGINGS LEFT WITH PT.DAUGHTER TO TRANSPORT PT HOME.
== END 2021-02-13 13:27 | disposition home or self-care (01) ==
LOC: ED 19:41 → ED-I 21:16 → ED 21:28 → MS2 21:29
PROVIDERS: Emergency Medicine; ADMIT Internal Medicine; ATTEND Internal Medicine
DX: T82.847A Pain due to cardiac prosthetic devices, implants and grafts, initial encounter (principal); N17.9 Acute kidney failure, unspecified; I12.9 Hypertensive chronic kidney disease with stage 1 through stage 4 chronic kidney disease, or unspecified chronic kidney disease; E11.22 Type 2 diabetes mellitus with diabetic chronic kidney disease; N18.9 Chronic kidney disease, unspecified; I25.10 Atherosclerotic heart disease of native coronary artery without angina pectoris; E87.1 Hypo-osmolality and hyponatremia; E78.5 Hyperlipidemia, unspecified; I48.0 Paroxysmal atrial fibrillation; R41.0 Disorientation, unspecified; G20 Parkinson's disease; Z87.11 Personal history of peptic ulcer disease; Z95.0 Presence of cardiac pacemaker; Y83.1 Surgical operation with implant of artificial internal device as the cause of abnormal reaction of the patient, or of later complication, without mention of misadventure at the time of the procedure; Z79.01 Long term (current) use of anticoagulants; Z20.822 Contact with and (suspected) exposure to COVID-19; Z45.2 Encounter for adjustment and management of vascular access device; N18.4 Chronic kidney disease, stage 4 (severe); D63.1 Anemia in chronic kidney disease
CPT/HCPCS: G0378

== ENCOUNTER 2021-03-11 19:21 | Emergency (ER) | payer MEDICARE, OTHER ==
[~2021-03-11] VITALS: Ht 154.9 cm; Wt 66.0 kg
[2021-03-11 20:43] LABS: HEMATOCRIT 29.2 % (37.0-47.0); HEMOGLOBIN 9.3 g/dl (12.0-16.0); MEAN CELL VOLUME 96.1 fL CALC (80.0-100.0); MEAN CORPUSCULAR HGB 30.6 pG CALC (26.0-32.0); MEAN CORPUSCULAR HGB CONC 31.8 g/dL CAL (32.0-36.0); NEUT# 2.23 thou/uL (2.00-7.15); RED BLOOD COUNT 3.04 mill/uL (4.20-5.60); RED CELL DISTRI WIDTH 14.5 % (11.5-15.5)
[2021-03-11 20:59] LABS: ALBUMIN 3.7 g/dL (3.2-5.0); ALKALINE PHOSPHATASE 56 u/l (38-126); AMYLASE 44 u/l (30-110); ANION GAP 11 (6-22 (CALC)); BILIRUBIN, TOTAL 0.2 mg/dL (0.0-1.4); BUN 12 mg/dL (8-23); BUN/CREATININE RATIO 13 (12-20 (CALC)); CARBON DIOXIDE 25 mmol/l (22-30); CHLORIDE 103 mmol/l (95-108); GFR 53 ML/MIN (>=60 (CALC)); GFR FOR AFR.AMER. > 60 ML/MIN (>=60 (CALC)); LIPASE 26 u/l (23-300); POTASSIUM 3.7 mmol/l (3.5-5.1); SGOT/AST 55 u/l (9-36); SODIUM 136 mmol/l (137-146); TOTAL PROTEIN 6.9 g/dL (6.3-8.2)
[2021-03-11 21:11] LABS: ACT PARTIAL THROMBO TIME 28.2 SECONDS (20.0-32.5); MYOGLOBIN 43 ng/mL (0 - 62); PROTHROMBIN TIME 10.7 SECONDS (9.0-12.5)
[2021-03-11 22:15] VITALS: BP 169/65
== END 2021-03-11 22:15 | disposition short-term general hospital (02) ==
LOC: ED 19:21
PROVIDERS: Family Medicine
DX: R07.9 Chest pain, unspecified (principal); R79.89 Other specified abnormal findings of blood chemistry; I48.0 Paroxysmal atrial fibrillation; G20 Parkinson's disease; I10 Essential (primary) hypertension; E11.9 Type 2 diabetes mellitus without complications; E78.5 Hyperlipidemia, unspecified; Z87.11 Personal history of peptic ulcer disease; Z95.0 Presence of cardiac pacemaker

== ENCOUNTER 2021-03-26 20:07 | Observation (INO) | payer MEDICARE, OTHER ==
[~2021-03-26] VITALS: Ht 154.9 cm; Wt 67.0 kg
--- NOTE | 2021-03-26 20:25 | NUR ---
BY WC TO ROOM
[2021-03-26 21:02] LABS: HEMOGLOBIN 9.1 g/dl (12.0-16.0); MEAN CELL VOLUME 96.2 fL CALC (80.0-100.0); MEAN CORPUSCULAR HGB 31.3 pG CALC (26.0-32.0); MEAN CORPUSCULAR HGB CONC 32.5 g/dL CAL (32.0-36.0); NEUT# 2.44 thou/uL (2.00-7.15); RED BLOOD COUNT 2.91 mill/uL (4.20-5.60); RED CELL DISTRI WIDTH 13.9 % (11.5-15.5)
[2021-03-26 21:20] LABS: ALBUMIN 3.9 g/dL (3.2-5.0); ALKALINE PHOSPHATASE 53 u/l (38-126); ANION GAP 13 (6-22 (CALC)); BUN 14 mg/dL (8-23); BUN/CREATININE RATIO 11 (12-20 (CALC)); CARBON DIOXIDE 25 mmol/l (22-30); CHLORIDE 102 mmol/l (95-108); CREATININE 1.3 mg/dL (0.5-1.0); GFR 39 ML/MIN (>=60 (CALC)); GFR FOR AFR.AMER. 47 ML/MIN (>=60 (CALC)); LIPASE 41 u/l (23-300); POTASSIUM 4.1 mmol/l (3.5-5.1); SGOT/AST 58 u/l (9-36); SODIUM 135 mmol/l (137-146); TOTAL PROTEIN 7.1 g/dL (6.3-8.2)
[2021-03-26 21:21] LABS: ACT PARTIAL THROMBO TIME 25.7 SECONDS (20.0-32.5); BILIRUBIN, TOTAL 0.3 mg/dL (0.0-1.4); PROTHROMBIN TIME 10.4 SECONDS (9.0-12.5)
--- NOTE | 2021-03-26 21:30 | NUR ---
RESTING QUIETLY. NAD.
--- NOTE | 2021-03-26 22:30 | NUR ---
C/O RIGHT SHOULDER PAIN. MD AWARE.
--- NOTE | 2021-03-26 23:30 | NUR ---
RESTING QUIETLY. NAD,
--- NOTE | 2021-03-27 01:30 | NUR ---
RESTING QUIETLY APPEARS COMFORTABLE. NAD.
[2021-03-27 05:57] LABS: HEMOGLOBIN 10.4 g/dl (12.0-16.0); MEAN CELL VOLUME 96.5 fL CALC (80.0-100.0); MEAN CORPUSCULAR HGB 30.4 pG CALC (26.0-32.0); MEAN CORPUSCULAR HGB CONC 31.5 g/dL CAL (32.0-36.0); RED BLOOD COUNT 3.42 mill/uL (4.20-5.60); RED CELL DISTRI WIDTH 13.8 % (11.5-15.5)
[2021-03-27 06:01] LABS: CREATININE 1.2 mg/dL (0.5-1.0); POTASSIUM 4.3 mmol/l (3.5-5.1)
[2021-03-27 07:00] VITALS: BP 136/66
[2021-03-27] MEDS ORDERED: LIDOCAINE PAIN RE4 % TD (09:59)
--- NOTE | 2021-03-27 10:35 | NUR ---
Discharged to: Home Discharged via: Wheelchair Accompanied by: family D/C Condition: stable Diet: 2 gm sodium Diet modification: no added salt Activity: As tolerated Home Health: NONE Follow up appointment: Special instructions: Medications: SEE MEDICATION RECONCILIATION FORM Prescriptions Given: Please notify your physician if you received either one of these vaccinations: Influenza Vaccine - Date: Pneumococcal Vaccine - Date: Patient Education Materials Provided: No - Food and Drug Interaction Guide No - Anticoagulation Education Booklet Contains the following information: 1. Compliance issues 2. Dietary advice 3. Follow up monitoring 4. Potential for adverse drug reactions and interactions No - Smoking Cessation Booklet IF SYMPTOMS WORSEN, OR IF YOU HAVE ADDITIONAL QUESTIONS, PLEASE CONTACT YOUR PERSONAL PHYSICIAN OR SEEK EMERGENCY CARE. CALL YOUR PHYSICIAN IF YOU DO NOT GET RELIEF FROM THE PAIN MEDICATIONS PRESCRIBED, OR IF THE INTENSITY OF PAIN INCREASES, OR IF PAIN IS INTERFERING WITH ACTIVITY OR REST. IF YOU SMOKE, YOU NEED TO QUIT. IT IS GOOD FOR YOU AND EVERYONE AROUND YOU! Your physician and [facility] care about you and your health. The facts are clear. Smoking causes 1 out of 5 deaths in the [place] each year. It is the major preventable cause of emphysema, lung cancer, chronic bronchitis, heart disease and stroke. Quitting is one of the best things you can ever do for yourself and those you love. What better time to quit than now! You've already been cigarette free during your stay. Studies have shown that the first 48 hours of quitting are the toughest. Just a few of the benefits your body begins to experience are blood pressure returns to normal, the carbon monoxide level in your blood drops to normal, your chance of heart attack decreases, and your ability to smell and taste is enhanced. Here are some resources that you may find helpful: [employer] [employer] [employer] www.lungusa.org www.cancer.org [place] [employer] [place] Department of Health (Tobacco Prevention and Control Program) www.americanheart.org www.rob.[facility].fl.us Finally don't forget that your doctor may be able to help you. Whichever method you choose will be good for you. IF YOU HAVE A DIAGNOSIS OF CONGESTIVE HEART FAILURE, THERE ARE SEVERAL ADDITIONAL INSTRUCTIONS FOR YOU TO FOLLOW UPON DISCHARGE FROM THE HOSPITAL. Weigh yourself every day and if weight gain is greater than 2 pounds in a day, call your physican. If you experience worsening symptoms such as: Problems with breathing or shortness of breath Ankle/foot/leg swelling Unexplained weight gain greater than 2 pounds Call your physician or come to the emergency room. IF YOU HAVE A DIAGNOSIS OF STROKE, THERE ARE SEVERAL ADDITIONAL INSTRUCTIONS FOR YOU TO FOLLOW: A stroke occurs when something happens to interrupt the steady flow of blood to the brain, like a clot or a burst in a blood vessel. Brain cells quickly begin to . These INCREASE your chance of having a STROKE: * Smoking * High blood pressure * Diabetes * Obesity WARNING SIGNS OR SYMPTOMS: * Sudden weakness on one side of body. * Sudden confusion, trouble speaking or understanding. * Sudden trouble seeing. * Sudden trouble walking or loss of balance. * Sudden severe headache with no known cause. CALL At Any Sign of Stroke. You can beat a stroke. Disabilities can be prevented or limited, but you have must go to the Emergency Department immediately. Go in an Ambulance. Save Time. Be Seen Faster! If you were admitted to the hospital for a stroke After DISCHARGE you must: * Keep ALL follow up appointments. * Take your medications as ordered by your doctor. * Do not take any other drugs without checking with your doctor first. * Do not drive unless your doctor says it is okay. * Call your doctor with any questions or concerns. IF YOU WERE DISCHARGED ON COUMADIN/WARFARIN ANTICOAGULATION THERAPY, THERE ARE SEVERAL ADDITIONAL INSTRUCTIONS FOR YOU TO FOLLOW: Anticoagulants are medications that help prevent blood clots. They are often prescribed for people with certain heart, lung and blood vessel diseases to help prevent heart attacks and strokes. IMPORTANT Anticoagulation medications have been used for many years, but it can be difficult to manage. That's because many factors can affect how they work-including small changes in dose or dose timing, what you eat or drink, other medications and stress. You and your doctor must work closely together to manage this important medication. * Take your medicine EXACTLY as instructed by your doctor. * You must have your blood drawn for PT/INR to monitor your medication. * Do not take any new medications, vitamins or herbal supplements without asking your doctor first. FOODS: * Eat the same amount of foods that contain Vitamin K every day. * Avoid or limit alcohol. * Avoid major changes in diet or notify your doctor first. FOLLOW UP MONITORING: See your physician within one week to monitor your condition. You will need to have blood tests performed to monitor the medication. DRUG INTERACTIONS: * Diet and medications can affect the PT/INR level. * Do not take or discontinue any medication or over the counter medication unless your doctor okays. * Warfarin/Coumadin increases the risk of bleeding. CALL YOUR PHYSICIAN IF: If you notice any signs of increased bleedin. Excessive bruising. 2. Abnormal bleeding from nose or gums. 3. [place], red or dark brown urine. 4. Minor bleeding or bright red blood from the bowel. CALL 911 OR GO TO THE HOSPITAL IF: 1. You have black tarry stools. 2. Sudden dizziness, faintness or weakness. 3. Cold or numbness in arm or leg. 4. Sudden chest pain. 5. Trouble talking or moving one side of body. 6. Coughing or vomiting bright red blood. 7. Severe headache or stomach pain. 8. Serious fall or hit to the head. Visit our website at [email or web address] You are going home today. Depending on your insurance coverage, you may be receiving a bill from the hospital for your hospital stay. If you have any question about your bill, please call the Business Office at [phone] or contact us at our web address: [email or web address]. If applicable, I have received my medication information as recommeded by my provider upon discharge. I have read and understand the above discharge instructions. Pt Signature: Date: Time: Witnessed by: Date: Time: Complete the record of communication to the next provider below. These discharge instructions, including discharge medications, is to be faxed to the next provider at the time of the patient's discharge. ____These instructions faxed to next Provider (Provider Name) on (Date) @ (Time) . ____The second provider involved in patient care following discharge has been faxed this information. These instructions faxed to (Provider-Home Health, Physical Therapy, Agency) on (Date) @ (Time) . OR ____Patient unable/unwilling to verbalize who the next provider of care will be, instructed patient to take these instructions to next appointment with healthcare provider.
[2021-03-27 11:18] VITALS: BP 136/66
--- NOTE | 2021-03-27 11:25 | NUR ---
Discharge instructions given. Patient verbalizes understanding of same. Discharged in stable condition via Wheelchair to Home with family. All belongings sent with pt.
== END 2021-03-27 11:25 | disposition home health service (06) ==
LOC: ED 20:07 → ED-I 21:26 → ED 21:42 → ED-I 21:43
PROVIDERS: Nurse Practitioner; ADMIT Hospitalist; ATTEND Hospitalist
DX: R07.9 Chest pain, unspecified (principal); I12.9 Hypertensive chronic kidney disease with stage 1 through stage 4 chronic kidney disease, or unspecified chronic kidney disease; E11.22 Type 2 diabetes mellitus with diabetic chronic kidney disease; N18.9 Chronic kidney disease, unspecified; I48.0 Paroxysmal atrial fibrillation; I25.10 Atherosclerotic heart disease of native coronary artery without angina pectoris; E78.5 Hyperlipidemia, unspecified; G20 Parkinson's disease; F02.80 Dementia in other diseases classified elsewhere, unspecified severity, without behavioral disturbance, psychotic disturbance, mood disturbance, and anxiety; D64.9 Anemia, unspecified; F32.9 Major depressive disorder, single episode, unspecified; F41.9 Anxiety disorder, unspecified; I25.2 Old myocardial infarction; Z87.11 Personal history of peptic ulcer disease; Z95.0 Presence of cardiac pacemaker; Z20.822 Contact with and (suspected) exposure to COVID-19

== ENCOUNTER 2021-07-18 13:14 | Observation (INO) | payer MEDICARE, OTHER ==
[~2021-07-18] VITALS: Ht 157.5 cm; Wt 69.0 kg
[~2021-07-18 13:14] MED LIST changes: +LIDOCAINE PAIN RE4 % TD
[2021-07-18 13:59] LABS: HEMATOCRIT 32.3 % (37.0-47.0); HEMOGLOBIN 10.1 g/dl (12.0-16.0); IMMATURE GRANULOCYTES 0.2 % (0.0-5.0); MEAN CORPUSCULAR HGB 29.7 pG CALC (26.0-32.0); MEAN CORPUSCULAR HGB CONC 31.3 g/dL CAL (32.0-36.0); NEUT# 9.43 thou/uL (2.00-7.15); RED BLOOD COUNT 3.4 mill/uL (4.20-5.60); RED CELL DISTRI WIDTH 14.9 % (11.5-15.5)
[2021-07-18 14:23] LABS: ACT PARTIAL THROMBO TIME 55.3 SECONDS (20.0-32.5); INTERNATIONAL NORMALIZED RATIO 1.4 RATIO (0.7-1.3); PROTHROMBIN TIME 13.9 SECONDS (9.0-12.5)
[2021-07-18 14:27] LABS: ALBUMIN 4.4 g/dL (3.2-5.0); BUN 23 mg/dL (8-23); BUN/CREATININE RATIO 15 (12-20 (CALC)); CHLORIDE 104 mmol/l (95-108); CREATININE 1.5 mg/dL (0.5-1.0); GFR 33 ML/MIN (>=60 (CALC)); GFR FOR AFR.AMER. 40 ML/MIN (>=60 (CALC)); LIPASE 41 u/l (23-300); POTASSIUM 4.4 mmol/l (3.5-5.1); SGOT/AST 36 u/l (9-36); SODIUM 136 mmol/l (137-146)
[2021-07-18 14:28] LABS: ALKALINE PHOSPHATASE 80 u/l (38-126); ANION GAP 17 (6-22 (CALC)); BILIRUBIN, TOTAL 0.7 mg/dL (0.0-1.4); CARBON DIOXIDE 19 mmol/l (22-30)
[2021-07-18 15:24] LABS: URINE BILIRUBIN - DIPSTICK NEGATIVE (NEGATIVE); URINE BLOOD DIPSTICK NEGATIVE (NEGATIVE); URINE COLOR YELLOW; URINE GLUCOSE - DIPSTICK NEGATIVE (NEGATIVE); URINE KETONE NEGATIVE (NEGATIVE); URINE LEUK ESTERASE NEGATIVE (NEGATIVE); URINE PROTEIN - DIPSTICK NEGATIVE (NEG-TRACE); URINE UROBILINOGEN - DIPSTICK 0.2 E.U./dL (0.2)
[2021-07-18 15:25] LABS: URINE NITRITE - DIPSTICK NEGATIVE (Negative)
[2021-07-18 18:35] VITALS: BP 147/83
[2021-07-18] MEDS ORDERED: COZAAR100 MG PO (20:30)
[2021-07-18] MEDS ORDERED: AMLODIPINE BESYL5 MG PO (20:30)
[2021-07-19] VITALS (9 sets, daily range): BP systolic 146–191; BP diastolic 60–90
[2021-07-19 08:42] LABS: HEMATOCRIT 27.8 % (37.0-47.0); MEAN CELL VOLUME 92.1 fL CALC (80.0-100.0); MEAN CORPUSCULAR HGB 29.8 pG CALC (26.0-32.0); MEAN CORPUSCULAR HGB CONC 32.4 g/dL CAL (32.0-36.0); RED BLOOD COUNT 3.02 mill/uL (4.20-5.60); RED CELL DISTRI WIDTH 14.9 % (11.5-15.5)
[2021-07-19 09:21] LABS: CREATININE 1.3 mg/dL (0.5-1.0); MAGNESIUM 1.8 mg/dL (1.6-2.3); POTASSIUM 4.2 mmol/l (3.5-5.1)
[2021-07-20] VITALS: BP 161/78
[2021-07-20 04:00] VITALS: BP 178/84
[2021-07-20 06:18] LABS: HEMOGLOBIN 10.7 g/dl (12.0-16.0); MEAN CELL VOLUME 94.8 fL CALC (80.0-100.0); MEAN CORPUSCULAR HGB 29.2 pG CALC (26.0-32.0); MEAN CORPUSCULAR HGB CONC 30.8 g/dL CAL (32.0-36.0); RED BLOOD COUNT 3.66 mill/uL (4.20-5.60); RED CELL DISTRI WIDTH 14.7 % (11.5-15.5)
[2021-07-20 06:32] LABS: HEMATOCRIT 34.7 % (37.0-47.0)
[2021-07-20 06:36] LABS: CREATININE 1.2 mg/dL (0.5-1.0); MAGNESIUM 1.7 mg/dL (1.6-2.3); POTASSIUM 4.3 mmol/l (3.5-5.1)
[2021-07-20 07:00] VITALS: BP 142/80
[2021-07-20 09:00] VITALS: BP 142/80
[2021-07-20] MEDS ORDERED: TOPROL XL50 MG PO (09:04)
[2021-07-20] MEDS ORDERED: HYDRALAZINE HYD25 MG PO (09:05)
[2021-07-20] MEDS ORDERED: XANAX0.25 MG PO (09:08)
== END 2021-07-20 10:26 | disposition home health service (06) ==
LOC: ED 13:14 → ED-I 16:41 → ED 17:03 → MS2 17:04
PROVIDERS: Nurse Practitioner; ADMIT Internal Medicine; ATTEND Internal Medicine
DX: R06.02 Shortness of breath (principal); R19.7 Diarrhea, unspecified; E86.0 Dehydration; E87.2 Acidosis; I12.9 Hypertensive chronic kidney disease with stage 1 through stage 4 chronic kidney disease, or unspecified chronic kidney disease; E11.22 Type 2 diabetes mellitus with diabetic chronic kidney disease; N18.30 Chronic kidney disease, stage 3 unspecified; I48.0 Paroxysmal atrial fibrillation; E78.5 Hyperlipidemia, unspecified; G20 Parkinson's disease; F02.80 Dementia in other diseases classified elsewhere, unspecified severity, without behavioral disturbance, psychotic disturbance, mood disturbance, and anxiety; I25.10 Atherosclerotic heart disease of native coronary artery without angina pectoris; F41.9 Anxiety disorder, unspecified; F32.A Depression, unspecified; Z79.01 Long term (current) use of anticoagulants; Z95.0 Presence of cardiac pacemaker; Z87.11 Personal history of peptic ulcer disease; Z20.822 Contact with and (suspected) exposure to COVID-19

== ENCOUNTER 2021-07-23 14:36 | Observation (INO) | payer MEDICARE, OTHER ==
[~2021-07-23] VITALS: Ht 157.5 cm; Wt 65.0 kg
[~2021-07-23 14:36] MED LIST changes: +AMLODIPINE BESYL5 MG PO; +COZAAR100 MG PO; +HYDRALAZINE HYD25 MG PO; +TOPROL XL50 MG PO; +XANAX0.25 MG PO
[2021-07-23 15:17] LABS: HEMOGLOBIN 10.1 g/dl (12.0-16.0); IMMATURE GRANULOCYTES 0.1 % (0.0-5.0); MEAN CELL VOLUME 95.8 fL CALC (80.0-100.0); MEAN CORPUSCULAR HGB 30.2 pG CALC (26.0-32.0); MEAN CORPUSCULAR HGB CONC 31.6 g/dL CAL (32.0-36.0); NEUT# 4.17 thou/uL (2.00-7.15); RED BLOOD COUNT 3.34 mill/uL (4.20-5.60); RED CELL DISTRI WIDTH 14.8 % (11.5-15.5)
[2021-07-23 15:31] LABS: ALBUMIN 4.3 g/dL (3.2-5.0); ALKALINE PHOSPHATASE 69 u/l (38-126); ANION GAP 14 (6-22 (CALC)); BILIRUBIN, TOTAL 0.5 mg/dL (0.0-1.4); BUN 24 mg/dL (8-23); CARBON DIOXIDE 20 mmol/l (22-30); CHLORIDE 110 mmol/l (95-108); GFR 20 ML/MIN (>=60 (CALC)); GFR FOR AFR.AMER. 24 ML/MIN (>=60 (CALC)); POTASSIUM 4.5 mmol/l (3.5-5.1); SGOT/AST 36 u/l (9-36); SODIUM 139 mmol/l (137-146); TOTAL PROTEIN 8.1 g/dL (6.3-8.2)
[2021-07-23 15:33] LABS: BUN/CREATININE RATIO 10 (12-20 (CALC)); CREATININE 2.3 mg/dL (0.5-1.0)
[2021-07-23 19:42] VITALS: BP 181/77
[2021-07-24] VITALS (7 sets, daily range): BP systolic 125–189; BP diastolic 65–94
[2021-07-24 10:15] LABS: CREATININE 1.8 mg/dL (0.5-1.0); POTASSIUM 4.3 mmol/l (3.5-5.1)
[2021-07-24] MEDS ORDERED: HYDRALAZINE HYD25 MG PO (13:11)
[2021-07-24] MEDS ORDERED: AMLODIPINE BESYL5 MG PO (15:45)
[2021-07-24] MEDS ORDERED: XANAX0.25 MG PO (15:45)
[2021-07-24] MEDS ORDERED: FLORASTOR250 M1 PO (15:48)
== END 2021-07-24 19:28 ==
LOC: ED 14:36 → ED-I 16:00 → ED 16:32 → MS2 16:33
PROVIDERS: Emergency Medicine; Nurse Practitioner; ADMIT Internal Medicine; ATTEND Internal Medicine
DX: R07.9 Chest pain, unspecified (principal); N17.9 Acute kidney failure, unspecified; E86.0 Dehydration; E11.22 Type 2 diabetes mellitus with diabetic chronic kidney disease; I12.9 Hypertensive chronic kidney disease with stage 1 through stage 4 chronic kidney disease, or unspecified chronic kidney disease; N18.30 Chronic kidney disease, stage 3 unspecified; I48.0 Paroxysmal atrial fibrillation; I25.10 Atherosclerotic heart disease of native coronary artery without angina pectoris; G20 Parkinson's disease; F02.80 Dementia in other diseases classified elsewhere, unspecified severity, without behavioral disturbance, psychotic disturbance, mood disturbance, and anxiety; F41.9 Anxiety disorder, unspecified; R19.7 Diarrhea, unspecified; F32.A Depression, unspecified; E78.5 Hyperlipidemia, unspecified; Z87.11 Personal history of peptic ulcer disease; Z95.0 Presence of cardiac pacemaker; Z20.822 Contact with and (suspected) exposure to COVID-19

== ENCOUNTER 2021-09-03 12:23 | Observation (INO) | payer MEDICARE, OTHER ==
[~2021-09-03] VITALS: Ht 157.5 cm; Wt 69.0 kg
[~2021-09-03 12:23] MED LIST changes: +FLORASTOR250 M1 PO
--- NOTE | 2021-09-03 12:23 | NUR ---
PT TO ROOM VIA EMS
--- NOTE | 2021-09-03 13:45 | NUR ---
RESTING QUIETLY WITH EYES CLOSED, AWAKENS EASILY, RESPS EVEN AND UNLABORED ON ROOM AIR, VSS, MONITORS ATTACHED. DAUGHTER AT BEDSIDE. DENIES NEEDS AT THIS TIME
[2021-09-03 13:52] LABS: HEMATOCRIT 33.6 % (37.0-47.0); HEMOGLOBIN 10.9 g/dl (12.0-16.0); IMMATURE GRANULOCYTES 0.3 % (0.0-5.0); MEAN CELL VOLUME 90.1 fL CALC (80.0-100.0); MEAN CORPUSCULAR HGB 29.2 pG CALC (26.0-32.0); MEAN CORPUSCULAR HGB CONC 32.4 g/dL CAL (32.0-36.0); NEUT# 12.3 thou/uL (2.00-7.15); RED BLOOD COUNT 3.73 mill/uL (4.20-5.60); RED CELL DISTRI WIDTH 13.9 % (11.5-15.5)
[2021-09-03 14:06] LABS: ALBUMIN 3.9 g/dL (3.2-5.0); BILIRUBIN, TOTAL 0.5 mg/dL (0.0-1.4); CREATININE 1.4 mg/dL (0.5-1.0); POTASSIUM 4.4 mmol/l (3.5-5.1); TOTAL PROTEIN 7.3 g/dL (6.3-8.2)
--- NOTE | 2021-09-03 15:30 | NUR ---
PT RETURNED FROM RADIOLOGY VIA STRETCHER
[2021-09-03] MEDS ORDERED: HALDOL1 M1 PO (17:54)
--- NOTE | 2021-09-03 18:56 | NUR ---
REPORT CALLED TO BUFFY NICHOLS
--- NOTE | 2021-09-03 19:00 | NUR ---
[facility]IA STRETCHER IN STABLE CONDITION
[2021-09-03 19:29] VITALS: BP 138/60
--- NOTE | 2021-09-03 20:00 | NUR ---
PATIENT ADMITTED FROM ER VIA STRETCHER WITH ER STAFF IN ATTENDANCE. PATIENT TRANSFERRED TO THE BED. ZOSYN FINISHED AT THIS TIME VIA [facility] SITE. SITE IS HEALTHY WITH GOOD BLOOD RETURN. PATIENT IS AWAKE ALERT AND ORIENTED TO PERSON AND PLACE ONLY. PATIENT DOES KNOW HER BIRTHDATE AND THAT SHE IS AT THE HOSPITAL. PATIENT STATES THAT SHE LIVES WITH HER DAUGHTER. COLOR IS PALE, SKIN IS WARM AND DRY. IVF NS HUNG AND INFUSING AT 100CC/HR. GLUCOSE MONITOR IS 166 AT THIS TIME. APPETITE IS FAIR FOR DINNER. LUNGS ARE CLEAR. ABD IS SOFT. NOT SURE WHEN HER LAST BM WAS. ABD IS SOFT WITH BS+. NO PERIPHERAL EDEMA NOTED. PULSES ARE PALPABLE. ATTEMPT TO ORIENT PATIENT TO ROOM AND SURROUNDINGS. INSTRUCTED ON USE OF NURSE CALL LIGHT AND TV REMOTE. SAFETY P RECAUTIONS REINFORCED. BED ALARM IN PLACE FOR PATIENT SAFETY. CALL LIGHT IN REACH. WILL CONT TO MONITOR.
--- NOTE | 2021-09-03 21:52 | NUR ---
RU CHEST PORT ACCESSED X1 ATTEMPT BY THIS COLLEGE INSTRUCTOR USING A 20G X 0.75 LAO NEEDLE. STERILE TECHNIQUE USED. PORT FLUSHES WITH EASE WITH GOOD BLOOD RETURN. PT TOLERATED WELL. EMS SITE TO #20G REMOVED; INTACT UPON REMOVAL.
--- NOTE | 2021-09-03 22:48 | NUR ---
TELEPHONE VERBAL ORDER OBTAINED FROM DR POLK TO STRAIGHT CATH PT FOR UA.
[2021-09-03 23:36] LABS: URINE BILIRUBIN - DIPSTICK NEGATIVE (NEGATIVE); URINE BLOOD DIPSTICK SMALL (NEGATIVE); URINE COLOR YELLOW; URINE GLUCOSE - DIPSTICK NEGATIVE (NEGATIVE); URINE KETONE NEGATIVE (NEGATIVE); URINE LEUK ESTERASE NEGATIVE (NEGATIVE); URINE PH 5.5 (4.5-8.0); URINE PROTEIN - DIPSTICK NEGATIVE (NEG-TRACE); URINE UROBILINOGEN - DIPSTICK 0.2 E.U./dL (0.2)
[2021-09-03 23:38] LABS: URINE NITRITE - DIPSTICK NEGATIVE (Negative); URINE SQUAMOUS EPITHELIAL CELL FEW EPI/hpf (0-FEW); URINE WBC 0-2 WBC/hpf (0-5)
[2021-09-04] VITALS: BP 113/59
--- NOTE | 2021-09-04 00:30 | NUR ---
PATIENT RESTING IN BED WITH EYES CLOSED. RESPS ARE EVEN AND UNLABORED. ZOSYN INFUSING VIA RIGHT UPPER CHEST PORT AT 100CC/HR. SITE REMAINS HEALTHY. TELE MONITOR IN PLACE. BED ALARM IN PLACE FOR PATIENT SAFETY. CALL LIGHT IN REACH. WILL CONT TO MONITOR.
--- NOTE | 2021-09-04 03:35 | NUR ---
PATIENT RESTING IN BED AT THIS TIME-EYES CLOSED AND RESPS ARE EVEN AND UNLABORED. RESPS ARE EVEN AND UNLABORED. TELE MONITOR IN PLACE. IVF NS PATENT AND INFUSING VIA RIGHT UPPER CHEST PORT AT 100CC/HR. SITE REMAINS RALTHY. CALL LIGHT IN REACH. WILL CONT TO MONITOR.
[2021-09-04 04:00] VITALS: BP 155/64
--- NOTE | 2021-09-04 04:40 | NUR ---
LAB WORK DRAWN FROM RIGHT UPPER CHEST PORT WITHOUT ANY DIFFICULTY-DFLUSHWED PER PROTOCOL AFTER BLOOD DRAW. IVF NS PATENT AND INFUSING AT 100CC/HR ORDERED. PATIENT RESTING WITH EYES CLOSED. RESPS ARE EVEN AND UNLABORED. TELE MONITOR IN PLACE. LAST READING WAS PACED-60. CALL LIGHT IN REACH. WILL CONT TO MONITOR
[2021-09-04 06:21] LABS: MEAN CELL VOLUME 91.3 fL CALC (80.0-100.0); MEAN CORPUSCULAR HGB 29.7 pG CALC (26.0-32.0); MEAN CORPUSCULAR HGB CONC 32.6 g/dL CAL (32.0-36.0); RED BLOOD COUNT 2.86 mill/uL (4.20-5.60); RED CELL DISTRI WIDTH 14.3 % (11.5-15.5)
[2021-09-04 06:24] LABS: HEMATOCRIT 26.1 % (37.0-47.0); HEMOGLOBIN 8.5 g/dl (12.0-16.0)
[2021-09-04 06:54] LABS: CREATININE 1.6 mg/dL (0.5-1.0); POTASSIUM 4.2 mmol/l (3.5-5.1)
[2021-09-04 07:35] VITALS: BP 146/64
--- NOTE | 2021-09-04 07:35 | NUR ---
PATIENT RESTING IN BED ALERT TO NAME AND AGE AT THIS TIME. RIGHT CHEST PORT ACCESSED AND IV FLUIDS .9/NS RUNNING AT 100MLS/HR. PATIENT DENIES ANY PAIN LUNG POON ARE CLEAR. SIDERAILS ARE UP X2 CALL LIGHT WITHIN REACH TELE MONITOR IN PLACE AND BEING MONITORED.
[2021-09-04 11:15] VITALS: BP 156/72
--- NOTE | 2021-09-04 12:00 | NUR ---
PATIENT SITTING UP AT BEDSIDE EATING LUNCH BY SELF ALERT X 3 DENIES ANY PAIN OR NEEDS SIDERAILS ARE UP X 2 CALL LIGHT IS WIHTIN REACH.
[2021-09-04] MEDS ORDERED: AMOX/K CLAV875 M1 PO (13:48)
--- NOTE | 2021-09-04 14:00 | NUR ---
PATIENT UPSET AT THIS TIME AT DAUGHTER. PATIENT DEACCESSED OWN PORT AT THIS TIME. PATIENT STATING SHE "WANTS TO GO HOME" PATIENT REMINDED THAT SHE WOULD BE GOING TO [facility] FOR SOME REHABILITATION TO GET STRONGER. PATIENT REMOVED TELE AND. THIS NURSE CALMED PATINET AND PATIENT DOES AGREE TO GO TO REHAB. PATIENT IS SETTING AT NURSES STATION WITH THIS NURSE AT THIS TIME.
--- NOTE | 2021-09-04 16:24 | NUR ---
PATIENT D/C AT THIS TIME REPORT CALLED TO [facility] AND SPOKE TO NURSE ALEXANDER AT THIS TIME. PATIENT WAS ALSO GIVEN DAILY DOSE OF XERELTO DUE TO FACILITY STATING THEY WOULD NOT HAVE MEDICINE UNTIL TOMORROW.
--- NOTE | 2021-09-04 16:44 | NUR ---
Discharge instructions given. Patient verbalizes understanding of same. Discharged in condition via Wheelchair to [facility] with *Other. All belongings sent with pt.[facility]PORT [facility]. PATIENT ALSO GIVEN HER XRELTO HERE PRIOR TO D/C
== END 2021-09-04 16:36 ==
LOC: ED 12:23 → ED-I 15:31 → ED 15:50 → MS2 15:51
PROVIDERS: Emergency Medicine; ADMIT Internal Medicine; ATTEND Internal Medicine
DX: J18.9 Pneumonia, unspecified organism (principal); R53.1 Weakness; E86.0 Dehydration; E87.2 Acidosis; G20 Parkinson's disease; F02.80 Dementia in other diseases classified elsewhere, unspecified severity, without behavioral disturbance, psychotic disturbance, mood disturbance, and anxiety; I10 Essential (primary) hypertension; E11.9 Type 2 diabetes mellitus without complications; I48.0 Paroxysmal atrial fibrillation; I25.10 Atherosclerotic heart disease of native coronary artery without angina pectoris; E78.5 Hyperlipidemia, unspecified; F41.9 Anxiety disorder, unspecified; F32.A Depression, unspecified; Z95.0 Presence of cardiac pacemaker; Z87.11 Personal history of peptic ulcer disease; Z66 Do not resuscitate; Z20.822 Contact with and (suspected) exposure to COVID-19

== ENCOUNTER 2021-10-03 11:58 | Observation (INO) | payer MEDICARE, OTHER ==
[2021-10-03] VITALS (16 sets, daily range): BP systolic 123–167; BP diastolic 57–72
[~2021-10-03] VITALS: Ht 157.5 cm; Wt 70.0 kg
[~2021-10-03 11:58] MED LIST changes: +AMOX/K CLAV875 M1 PO; +HALDOL1 M1 PO
--- NOTE | 2021-10-03 12:29 | NUR ---
PATIENT TO ROOM 14
--- NOTE | 2021-10-03 12:54 | NUR ---
Reassessment of patient completed. No distress noted.
[2021-10-03 13:13] LABS: HEMATOCRIT 30.6 % (37.0-47.0); HEMOGLOBIN 9.7 g/dl (12.0-16.0); IMMATURE GRANULOCYTES 0.2 % (0.0-5.0); MEAN CELL VOLUME 93.9 fL CALC (80.0-100.0); MEAN CORPUSCULAR HGB 29.8 pG CALC (26.0-32.0); MEAN CORPUSCULAR HGB CONC 31.7 g/dL CAL (32.0-36.0); NEUT# 3.88 thou/uL (2.00-7.15); RED BLOOD COUNT 3.26 mill/uL (4.20-5.60); RED CELL DISTRI WIDTH 13.8 % (11.5-15.5)
[2021-10-03 13:28] LABS: ALKALINE PHOSPHATASE 67 u/l (38-126); ANION GAP 14 (6-22 (CALC)); BILIRUBIN, TOTAL 0.5 mg/dL (0.0-1.4); BUN 20 mg/dL (8-23); BUN/CREATININE RATIO 12 (12-20 (CALC)); CARBON DIOXIDE 26 mmol/l (22-30); CHLORIDE 98 mmol/l (95-108); CREATININE 1.7 mg/dL (0.5-1.0); GFR 29 ML/MIN (>=60 (CALC)); GFR FOR AFR.AMER. 35 ML/MIN (>=60 (CALC)); POTASSIUM 4.1 mmol/l (3.5-5.1); SGOT/AST 47 u/l (9-36); SODIUM 134 mmol/l (137-146); TOTAL PROTEIN 7.2 g/dL (6.3-8.2)
--- NOTE | 2021-10-03 14:51 | NUR ---
FIRST ATTEMP TO CALL REPORT TO NURSE MARILY
[2021-10-03] MEDS ORDERED: CEPHALEXIN250 M3 PO (14:55)
[2021-10-03] MEDS ORDERED: LIPITOR10 M1 PO (14:55)
[2021-10-03] MEDS ORDERED: BUSPAR5 M1 PO (14:57)
--- NOTE | 2021-10-03 14:58 | NUR ---
REPORT GIVEN TO NURSE 263
--- NOTE | 2021-10-03 15:45 | NUR ---
PATIENT ALERT AND ORIENTED X3. NO RESPIRATORY DISTRESS AT THIS TIME. COMPLETE ADDMISSION PROCESS. EDUCATES PATIENT ABOUT MEDICATIONS AND NURSING PLAN. PATIENT REFER UNDERSTAND.
--- NOTE | 2021-10-03 20:33 | NUR ---
RESTING IN BED VSS RESPIRATIONS EVEN AND UNLABORED. A/OX4 BS ACTIVE. NO BLE EDEMA NOTED.
--- NOTE | 2021-10-04 00:40 | NUR ---
RESTING IN BED, EYES CLOSED VSS NO C/O PAIN
[2021-10-04 04:00] VITALS: BP 152/63
--- NOTE | 2021-10-04 04:37 | NUR ---
RESTED WELL OVERNIGHT NO ACUTE EVENTS. VSS SAFETY MEASURES IN PLACE PER POLICY. Q2HR ROUNDING PER POLSANDRA PERFORMED
[2021-10-04 05:34] LABS: HEMATOCRIT 33.8 % (37.0-47.0); HEMOGLOBIN 10.9 g/dl (12.0-16.0); MEAN CELL VOLUME 91.6 fL CALC (80.0-100.0); MEAN CORPUSCULAR HGB 29.5 pG CALC (26.0-32.0); MEAN CORPUSCULAR HGB CONC 32.2 g/dL CAL (32.0-36.0); RED BLOOD COUNT 3.69 mill/uL (4.20-5.60); RED CELL DISTRI WIDTH 13.7 % (11.5-15.5)
[2021-10-04 06:00] LABS: CHOLESTEROL HDL RATIO 2.6 (<4.4 (CALC)); CREATININE 1.3 mg/dL (0.5-1.0); MAGNESIUM 1.4 mg/dL (1.6-2.3)
[2021-10-04 06:02] LABS: POTASSIUM 4.1 mmol/l (3.5-5.1)
--- NOTE | 2021-10-04 07:00 | NUR ---
RECEIVE REPORT FROM ALEXIS NICHOLS.
--- NOTE | 2021-10-04 08:00 | NUR ---
PATIENT ALERT AND ORIENTED. NO RESPIRATORY DISTRESS NO PAIN AT THIS TIME. PATIENT IS EDUCATES ABOUT MEDICATIONS AND NURSING PLAN FOR TODAY. PATIENT REPORT UNDERSTAND.
[2021-10-04 09:31] VITALS: BP 149/73
--- NOTE | 2021-10-04 12:06 | NUR ---
Patient stable resting in bed. Possible discharged today. CT ABD. DONE
[2021-10-04 13:46] VITALS: BP 155/73
[2021-10-04 15:10] VITALS: BP 155/73
== END 2021-10-04 16:00 | disposition home or self-care (01) ==
LOC: ED 11:58 → ED-I 13:40 → ED 13:55 → MS2 13:56
PROVIDERS: Family Medicine; ADMIT Hospitalist; ATTEND Hospitalist
DX: R07.9 Chest pain, unspecified (principal); R10.13 Epigastric pain; I10 Essential (primary) hypertension; E11.9 Type 2 diabetes mellitus without complications; I25.10 Atherosclerotic heart disease of native coronary artery without angina pectoris; I48.20 Chronic atrial fibrillation, unspecified; E78.5 Hyperlipidemia, unspecified; G20 Parkinson's disease; F02.80 Dementia in other diseases classified elsewhere, unspecified severity, without behavioral disturbance, psychotic disturbance, mood disturbance, and anxiety; F41.9 Anxiety disorder, unspecified; F32.A Depression, unspecified; I25.2 Old myocardial infarction; Z87.11 Personal history of peptic ulcer disease; Z95.0 Presence of cardiac pacemaker; Z95.5 Presence of coronary angioplasty implant and graft; Z20.822 Contact with and (suspected) exposure to COVID-19
CPT/HCPCS: G0378

== ENCOUNTER 2021-10-17 18:03 | Observation (INO) | payer MEDICARE, OTHER ==
[~2021-10-17] VITALS: Ht 157.5 cm; Wt 77.0 kg
[2021-10-17] VITALS (16 sets, daily range): BP systolic 86–143; BP diastolic 35–89
[~2021-10-17 18:03] MED LIST changes: +BUSPAR5 M1 PO; +CEPHALEXIN250 M3 PO; +LIPITOR10 M1 PO
[2021-10-17 18:55] LABS: HEMATOCRIT 33.2 % (37.0-47.0); HEMOGLOBIN 10.6 g/dl (12.0-16.0); IMMATURE GRANULOCYTES 0.2 % (0.0-5.0); MEAN CORPUSCULAR HGB 29.7 pG CALC (26.0-32.0); MEAN CORPUSCULAR HGB CONC 31.9 g/dL CAL (32.0-36.0); NEUT# 3.44 thou/uL (2.00-7.15); RED BLOOD COUNT 3.57 mill/uL (4.20-5.60); RED CELL DISTRI WIDTH 13.9 % (11.5-15.5)
[2021-10-17 19:08] LABS: ALBUMIN 3.6 g/dL (3.2-5.0); ALKALINE PHOSPHATASE 69 u/l (38-126); ANION GAP 10 (6-22 (CALC)); BILIRUBIN, TOTAL 0.3 mg/dL (0.0-1.4); BUN 15 mg/dL (8-23); BUN/CREATININE RATIO 10 (12-20 (CALC)); CARBON DIOXIDE 28 mmol/l (22-30); CHLORIDE 101 mmol/l (95-108); CREATININE 1.5 mg/dL (0.5-1.0); GFR 33 ML/MIN (>=60 (CALC)); GFR FOR AFR.AMER. 40 ML/MIN (>=60 (CALC)); LIPASE 20 u/l (23-300); POTASSIUM 3.7 mmol/l (3.5-5.1); SGOT/AST 64 u/l (9-36); SODIUM 136 mmol/l (137-146)
[2021-10-17 19:20] LABS: MYOGLOBIN 71 ng/mL (0 - 62)
[2021-10-18 04:02] VITALS: BP 134/69
[2021-10-18 05:53] LABS: HEMATOCRIT 34.3 % (37.0-47.0); MEAN CELL VOLUME 92.5 fL CALC (80.0-100.0); MEAN CORPUSCULAR HGB 29.6 pG CALC (26.0-32.0); MEAN CORPUSCULAR HGB CONC 32.1 g/dL CAL (32.0-36.0); RED BLOOD COUNT 3.71 mill/uL (4.20-5.60); RED CELL DISTRI WIDTH 13.7 % (11.5-15.5)
[2021-10-18 05:55] LABS: CREATININE 1.8 mg/dL (0.5-1.0); MAGNESIUM 1.6 mg/dL (1.6-2.3); POTASSIUM 3.9 mmol/l (3.5-5.1)
[2021-10-18 10:24] VITALS: BP 148/70
[2021-10-18 10:49] VITALS: BP 148/70
[2021-10-18] MEDS ORDERED: PROLIA60 MG/ML SC (11:30)
[2021-10-18] MEDS ORDERED: MEMANTINE HYDROC5 MG PO (11:31)
[2021-10-18] MEDS ORDERED: HALDOL1 M1 PO (11:33)
[2021-10-18] MEDS ORDERED: ATIVAN1 M1 PO (11:34)
== END 2021-10-18 15:09 | disposition home or self-care (01) ==
LOC: ED 18:03 → ED-I 19:40 → ED 20:08 → MS2 20:09
PROVIDERS: Nurse Practitioner; ADMIT Hospitalist; ATTEND Hospitalist
DX: R07.2 Precordial pain (principal); I10 Essential (primary) hypertension; E11.9 Type 2 diabetes mellitus without complications; I25.10 Atherosclerotic heart disease of native coronary artery without angina pectoris; I48.20 Chronic atrial fibrillation, unspecified; G20 Parkinson's disease; F02.80 Dementia in other diseases classified elsewhere, unspecified severity, without behavioral disturbance, psychotic disturbance, mood disturbance, and anxiety; E78.5 Hyperlipidemia, unspecified; F41.9 Anxiety disorder, unspecified; F32.A Depression, unspecified; Z87.11 Personal history of peptic ulcer disease; Z95.0 Presence of cardiac pacemaker; Z20.822 Contact with and (suspected) exposure to COVID-19
CPT/HCPCS: G0378

== ENCOUNTER 2021-10-22 14:25 | Inpatient (IN) | payer MEDICARE, OTHER ==
[~2021-10-22] VITALS: Ht 157.5 cm; Wt 64.0 kg
[~2021-10-22 14:25] MED LIST changes: +ATIVAN1 M1 PO; +MEMANTINE HYDROC5 MG PO; +PROLIA60 MG/ML SC
--- NOTE | 2021-10-22 14:45 | NUR ---
PT ESCORTED TO ROOM 6 VIA EMS STRETCHER FOR CO FEVER, AMS POST MEDIPORT REMOVAL.
[2021-10-22 14:56] LABS: HEMATOCRIT 33.9 % (37.0-47.0); HEMOGLOBIN 10.9 g/dl (12.0-16.0); IMMATURE GRANULOCYTES 0.4 % (0.0-5.0); MEAN CELL VOLUME 91.9 fL CALC (80.0-100.0); MEAN CORPUSCULAR HGB 29.5 pG CALC (26.0-32.0); MEAN CORPUSCULAR HGB CONC 32.2 g/dL CAL (32.0-36.0); NEUT# 4.35 thou/uL (2.00-7.15); RED BLOOD COUNT 3.69 mill/uL (4.20-5.60); RED CELL DISTRI WIDTH 13.8 % (11.5-15.5)
--- NOTE | 2021-10-22 15:08 | NUR ---
MULTIPLE ATTEMPTS MADE FOR UA VIA STRAIGHT CATH UNSUCCESSFUL. MD AWARE AND ATTEMPTED WELL AT BEDSIDE.
[2021-10-22 15:24] LABS: ALBUMIN 3.3 g/dL (3.2-5.0); CREATININE 1.9 mg/dL (0.5-1.0); POTASSIUM 3.9 mmol/l (3.5-5.1); TOTAL PROTEIN 6.4 g/dL (6.3-8.2)
[2021-10-22 15:25] LABS: INTERNATIONAL NORMALIZED RATIO 1.3 RATIO (0.7-1.3); PROTHROMBIN TIME 13.2 SECONDS (9.0-12.5)
[2021-10-22 15:38] LABS: BILIRUBIN, TOTAL 0.5 mg/dL (0.0-1.4)
--- NOTE | 2021-10-22 17:12 | NUR ---
Reassessment of patient completed. No distress noted.
[2021-10-22 18:01] VITALS: BP 137/55
--- NOTE | 2021-10-22 18:04 | NUR ---
REPORT GIVEN TO GALILEO DOSHI TRANSFERED TO MED/SURG
--- NOTE | 2021-10-22 18:15 | NUR ---
PT ARRIVED IN ROOM BY STRETCHER, PT IS VERY TIRED BUT EASY TO WAKE TO ANSWER QUESTIONS. DENIES PAIN AT THIS TIME
--- NOTE | 2021-10-22 18:22 | NUR ---
CRITICAL LAB- LACTIC ACID 2.3, DR. BURKS INFORMED AND HE ORDERED REPEAT LAB IN 2 HOUR.
[2021-10-22 19:00] VITALS: BP 115/49
--- NOTE | 2021-10-22 20:00 | NUR ---
PATIENT RESTING IN BED WITH EYES CLOSED. RESPONDS TO HER NAME. COLOR IS PALE AND SKIN IS WARM AND DRY. MEDICATED FOR TEMP 101 WITH TYLENOL 650MG PO. PATIENT IS LETHARGIC BUT ABLE TO TELL ME HER BIRTHDATE. TELE MONITOR IN PLACE. IVF NS HUNG AND INFUSING VIA RAC SITE AT 100CC/HR. SALINE LOCK TO LEFT FOREARM. O2 VIA NASAL CANNULA IN PLACE. CALL LIGHT IN REACH. WILL CONT TO MONITOR.
--- NOTE | 2021-10-22 22:30 | NUR ---
RECIEVED CALL FROM DR. BURKS AND NEW ORDERS RECEIVED. ABG WAS DONE. STAT LACTIC WAS DRAWN. URINE SPEC OBTAINED VIA CATH URINE WITHOUT ANY DIFFICULTY. DRAINING CLEAR YELLOW URINE. PATIENT TOLERATE WELL. PATIENT CONT TO BE LETHARGIC BUT RESPONDS TO HER NAME. IVF PATENT AND INFUSING VIA RAC AT 100CC/HR. TEMP IS DOWN TO 98.1. CALL LIGHT IN REACH. WILL CONT TO MONITOR.
[2021-10-22 23:14] LABS: URINE BILIRUBIN - DIPSTICK NEGATIVE (NEGATIVE); URINE BLOOD DIPSTICK SMALL (NEGATIVE); URINE COLOR YELLOW; URINE GLUCOSE - DIPSTICK NEGATIVE (NEGATIVE); URINE KETONE NEGATIVE (NEGATIVE); URINE PH 5.5 (4.5-8.0); URINE PROTEIN - DIPSTICK NEGATIVE (NEG-TRACE); URINE SPECIFIC GRAVITY 1.015; URINE UROBILINOGEN - DIPSTICK 0.2 E.U./dL (0.2)
[2021-10-22 23:18] LABS: URINE LEUK ESTERASE NEGATIVE (NEGATIVE); URINE NITRITE - DIPSTICK NEGATIVE (Negative)
[2021-10-22 23:23] LABS: URINE EPITHELIAL CELLS FEW EPI/hpf (0-FEW); URINE WBC 0-2 WBC/hpf (0-5)
[2021-10-22 23:24] LABS: URINE BACTERIA RARE hpf
[2021-10-23 00:06] VITALS: BP 98/50
--- NOTE | 2021-10-23 00:08 | NUR ---
SPOKE WITH DR. BURKS REGUARDING LACTIC ACID RESULTS OF 2.4. ORDER TO REPEAT LACTIC ACID WITH AM LABS. OK TO LEAVE TORRES CATH IN PLACE PER DR. BURKS. BP IS LOW-98/50, HR-60, O2 SAT IS 98% WITH O2 VIA NASAL CANNULA IN PLACE. COLOR REMAINS PALE. STILL LETHARGIC BUT DOES RESPOND TO NAME. CALL LIGHT IN REACH. WILL CONT TO MONITOR.
--- NOTE | 2021-10-23 02:36 | NUR ---
PATIENT INCONT OF MODERATE AMT OF LOOSE GREENISH BROWN STOOL. PATIENT PROVIDED WITH PERICARE AND LINEN CHANGE. TELE MONITOR IN PLACE. IVF PATENT AND INFUSING VIA RAC SITE AT 100CC/HR. TORRES PATENT AND DRAINING YELLOW URINE. O2 VIA NASAL CANNULAIN PLACE. CALL LIGHT IN REACH. WILL CONT TO MONITOR
[2021-10-23 03:58] VITALS: BP 99/51
--- NOTE | 2021-10-23 05:36 | NUR ---
PATIENT RESTING IN BED AT THIS TIME WITH O2 VIA NASAL CANNULA IN PLACE. IV SITE TO RAC DISLODGED WITH CATH INTACT. IVF PATENT AND INFUSING VIA LEFT FOREARM SITE AT 100CC/HR. SITE IS HEALTHY AT THIS TIME. TORRES CATH PATENT AND DRAINING YELLOW URINE. TELE MONITOR IN PLACE-LAST PACED 60. CALL LIGHT IN REACH. WILL CONT TO MONITOR.
[2021-10-23 05:39] LABS: HEMATOCRIT 29.8 % (37.0-47.0); HEMOGLOBIN 9.3 g/dl (12.0-16.0); MEAN CELL VOLUME 95.2 fL CALC (80.0-100.0); MEAN CORPUSCULAR HGB 29.7 pG CALC (26.0-32.0); MEAN CORPUSCULAR HGB CONC 31.2 g/dL CAL (32.0-36.0); RED BLOOD COUNT 3.13 mill/uL (4.20-5.60); RED CELL DISTRI WIDTH 14.3 % (11.5-15.5)
[2021-10-23 06:16] LABS: CREATININE 1.8 mg/dL (0.5-1.0); MAGNESIUM 1.7 mg/dL (1.6-2.3)
[2021-10-23 06:25] LABS: POTASSIUM 4.8 mmol/l (3.5-5.1)
--- NOTE | 2021-10-23 06:53 | NUR ---
RECIEVED CALL FROM JULIANN IN LAB WITH CRITICAL LAB-LACTIC ACID WAS 2.9. DR. POLK CALLED WITH RESULTS. NO NEW ORDERS AT THIS ITME. WILL CONT TO MONITOR.
[2021-10-23 07:26] VITALS: BP 122/42
--- NOTE | 2021-10-23 07:50 | NUR ---
PT SLEEPING, NO S/S OF DISCOMFORT OR DISTRESS
--- NOTE | 2021-10-23 08:05 | NUR ---
Patient is screened for PT and OT interventions and would benefit from both if medical agrees
[2021-10-23 10:40] VITALS: BP 129/45
--- NOTE | 2021-10-23 11:30 | NUR ---
SPEECH NOTE: Screening request was received today. The patient has conditions including pneumonia, Parkinson's Disease, Dementia, hiatal hernia, and CABG per chart. The patient denies having trouble swallowing. The patient denies having cough and choke with meals. She denies having odynophagia. She denies having gastric reflux and denies having trouble chewing. She denies that food gets stuck in her chest. She indicated that she can hear BEAUTY CULTURE TEACHER in conversation. She does have some visible oral tremor. She denies having trouble swallowing pills. She reports having a good appetite. She has 4-4-22 WBC 5.3. The chest x-ray per MD reports 4-4-22 of bilateral multi-focal infiltrates. The nurse licensed physical therapist assistant reports of reduction to appetite for the patient. Based on the information provided, the patient could benefit from a Clinical Bedside Swallow Evaluation at the discretion of MD and the medical team.
--- NOTE | 2021-10-23 12:00 | NUR ---
PT UP IN CHAIR EATING, COMPLAINS OF BACK PAIN, GAVE HER MEDICATION
[2021-10-23 14:15] VITALS: BP 124/51
--- NOTE | 2021-10-23 16:00 | NUR ---
PT SLEEPING IN BED, NO S/S OF DISTRESS OR DISCOMFORT
[2021-10-23 19:13] VITALS: BP 120/47
--- NOTE | 2021-10-23 20:00 | NUR ---
PATIENT SITTING UP IN BED-MUCH MORE ALERT TONIGHT COMPARED TO LAST NIGHT. COLOR IS IMPROVED. SKIN IS WARM AND DRY. ORIENTED TO PERSON AND PLACE. IVF NS PATENT AND INFUSING VIA LEFT WRIST/FOREARM SITE AT 100CC/HR. TELE MONITOR IN PLACE WITH LAST READING PACED 59. TORRES CATH PATENT AND DRAINING YELLOW URINE. O2 VIA NASAL CANNULA IN PLACE. SAFETY PRECAUTIONS REINFORCED. CALL LIGHT IN REACH. WILL CONT TO MONITOR.
--- NOTE | 2021-10-23 21:00 | NUR ---
PATIENT IS MUCH MORE INTERACTIVE TONIGHT. TAKING PO MEDS WITH JUICE. IVF PATENT AND INFUSING ORDDERED. TORRES PATENT AND DRAINING YELLOW URINE. TELE MONITOR UNCHANGED-PACED LOW 60'S. SAFETY PRECAUTIONS REINFORCED. CALL LIGHT IN REACH. WILL CONT TO MONITOR.
--- NOTE | 2021-10-24 | NUR ---
PATIENT RESTING INBED AT THIS TIME. EYES ARE CLOSED RESPS ARE EVEN AND UNLABORED.O2 VIA NASAL CANNULA IN PLACE. O2 SAT 97%. VS TAKEN AND RECORDED. IVF PATENTAND INFUSING AT 100CC/HR VIA LEFT WRIST/FOREARM SITE. TORRES PATENT AND DRAINING YELLOW URINE. CALL LIGHT IN REACH. WILL CONT TO MONITOR.
[2021-10-24 00:48] VITALS: BP 136/54
[2021-10-24 04:25] VITALS: BP 130/52
--- NOTE | 2021-10-24 04:40 | NUR ---
PATIENT SITTING UP IN BED-O2 VIA NASAL CANNULA IN PLACE-O2 SAT IS 98%. AWAKE AND ALERT WITH NO COMPLAINTS AT THIS TIME. IVF NS PATENT AND INFUSING VIA LEFT WRIST/FOREARM SITE AT 100CC/HR. TORRES PATENT AND DRAINING YELLOW URINE. TELE MONITOR IN PLACE-READING PACED 60'S. SAFETY PRECAUTIONS REINFORCED. CALL LIGHT IN REACH.WILL CONT TO MONITOR.
[2021-10-24 05:56] LABS: HEMATOCRIT 27.4 % (37.0-47.0); HEMOGLOBIN 8.7 g/dl (12.0-16.0); MEAN CELL VOLUME 94.8 fL CALC (80.0-100.0); MEAN CORPUSCULAR HGB 30.1 pG CALC (26.0-32.0); MEAN CORPUSCULAR HGB CONC 31.8 g/dL CAL (32.0-36.0); RED BLOOD COUNT 2.89 mill/uL (4.20-5.60); RED CELL DISTRI WIDTH 14.5 % (11.5-15.5)
[2021-10-24 06:07] LABS: BILIRUBIN, TOTAL 0.5 mg/dL (0.0-1.4); CREATININE 1.7 mg/dL (0.5-1.0); MAGNESIUM 1.7 mg/dL (1.6-2.3); TOTAL PROTEIN 5.3 g/dL (6.3-8.2)
[2021-10-24 06:12] LABS: ALBUMIN 2.6 g/dL (3.2-5.0)
--- NOTE | 2021-10-24 07:00 | NUR ---
RECEIVE REPORT FROM BUFFY NICHOLS.
[2021-10-24 08:00] VITALS: BP 166/69
--- NOTE | 2021-10-24 08:00 | NUR ---
PATIENT ALERT AND ORIENTED X3. NO RESPIRATORY DISTRES OR PAIN AT THIS TIME. PATIENT IS EDUCATES ABOUT MEDICATIONS AND NURSING PLAN FOR TODAY. PATIENT REFER UNDERSTAND.
--- NOTE | 2021-10-24 09:03 | NUR ---
PRELIMINARY BLOOD CULTURE RESULTS SHOW GRAM POSITIVE COCCI IN 1 OF [address] BURKS. NO NEW ORDERS RECEIVED. WILL F/U WITH FINALS.
--- NOTE | 2021-10-24 12:08 | NUR ---
PATIENT RESTING IN BED. STABLE AT THIS TIME.
[2021-10-24 14:39] VITALS: BP 156/71
--- NOTE | 2021-10-24 20:00 | NUR ---
PATIENT RESTING IN BED-AWAKE ALERT AND ORIENTED TO PERSON-THINKSTHAT SHE IS AT THE CORRECTION-REORIENTED PATIENT TO PLACE AND TIME. PLEASANT BUT RESTLESS. O2 SAT IS 97% ON ROOM AIR. TELE MONITOR IN PLACE READING PACED IN THE 60'S. IVF PATENT AND INFUSING VIA RIGHT ARM SITE AT 100CC/HR. TORRES PATENT AND DRAINING YELLOW URINE. BED ALARM FOR PATIENT SAFETY . CALL LIGHT IN REACH. WILL CONT TO MONITOR.
[2021-10-24 20:05] VITALS: BP 169/71
--- NOTE | 2021-10-24 21:25 | NUR ---
PATIENT FOUND IN BED WITH IV SITE DISLODGED AND BLOODY LINENS. PATIENT PROVIDED WITH PERSONAL CARE AND WASHED UP BY LEAD SUPPLY WORKER. LINENS CHANGED. PATIENT REMAINS RESTLESS AND MEDICATED WITH ATIVAN 1MG PO FOR ANXIETY. BED ALARM IN PLACE FOR PATIENT SAFETY. SAFETY PRECAUTIONS REINFORCED. CALL LIGHT IN REACH. WILL CONT TO MONITOR.
--- NOTE | 2021-10-24 22:05 | NUR ---
PATIENT RESTING IN BED-NEW IV SITE STARTED TO RIGHT FOREARM-#22 GAUGE WITH GOOD BLOOD RETURN. IVF PATENT AND INFUSING ORDERED. DOXYCYCLINE HUNG ORDERED. TORRES PATENT AND DRAINING YELLOW URINE. TELE MONITOR IN PLACE-LAST READING WAS PACED-60'S.O2 SAT WAS 97% ON RA. BED ALARM IN PLACE FOR PATIENT SAFETY. CALL LIGHT IN REACH. WILL CONT TO MONITOR.
[2021-10-24 23:43] VITALS: BP 154/69
--- NOTE | 2021-10-25 00:08 | NUR ---
RESTING IN BED-EYES CLOSED AT THIS TIME. RESPS ARE EVEN AND UNLABORED. IVF PATENT AND INFUSING VIA RIGHT FOREARM SITE. TELE MONITOR IN PLACE. TORRES PATENT AND DRAINING YELLOW URINE. BED ALARM IN PLACE FOR PATIENT SAFETY. CALL LIGHT IN REACH. WILL CONT TO MONITOR.
[2021-10-25 04:28] VITALS: BP 159/40
[2021-10-25 05:48] LABS: HEMATOCRIT 28.5 % (37.0-47.0); HEMOGLOBIN 9.1 g/dl (12.0-16.0); MEAN CELL VOLUME 94.1 fL CALC (80.0-100.0); MEAN CORPUSCULAR HGB CONC 31.9 g/dL CAL (32.0-36.0); RED BLOOD COUNT 3.03 mill/uL (4.20-5.60); RED CELL DISTRI WIDTH 14.3 % (11.5-15.5)
[2021-10-25 06:05] LABS: CREATININE 1.5 mg/dL (0.5-1.0); MAGNESIUM 1.7 mg/dL (1.6-2.3); POTASSIUM 3.7 mmol/l (3.5-5.1)
--- NOTE | 2021-10-25 06:18 | NUR ---
PATIENT RESTING IN BED. O2 SAT IS 95% ON ROOM AIR. LAB WORK DRAWN. TORRES PATENT AND DRAING YELLOW URINE. IVF PATENT AND INFUSING VIA RIGHT FOREARM SITE. TELE MONITOR IN PLACE WITH LAST READING PACED. BED ALARM IN PLACE FOR PATIENT SAFETY. CALL LIGHT IN REACH. WILL CONT TO MONITOR.
--- NOTE | 2021-10-25 07:00 | NUR ---
RECEIVE REPORT FROM BUFFY NICHOLS.
[2021-10-25 08:00] VITALS: BP 161/59
--- NOTE | 2021-10-25 08:00 | NUR ---
PATIENT ALERT AND ORIENTED X3. NO RESPIRATORY DISTRESS AT THIS TIME. PATIENT IS EDUCATES AVOUT MEDICATIONS AND NURSING PLAN FOR TODAY. PATIENT REFER UNDERSTAND
[2021-10-25 11:23] VITALS: BP 162/62
--- NOTE | 2021-10-25 13:54 | NUR ---
PATIENT STABLE AT THIS TIME. RESTING IN BED.
[2021-10-25 15:00] VITALS: BP 162/71
[2021-10-25 19:33] VITALS: BP 179/66
--- NOTE | 2021-10-25 20:00 | NUR ---
PT COMPLAINING OF HER ARM HURTING AFTER GIVING PT HER IV ABX CHECKED PT'S ARM, WAS MORE SWOLLEN AND RED FROM START OF SHIFT, REMOVED IV, TRIED TO START ANOTHER IV X3 PEIOPLE AND SOMEONE FROM ED CAME UP AND TRIED, UNSUCCESSFUL. CALLED DR. BURKS SAID TO LEAVE OUT AND HE WOULD ADJUST HER ABX IN THE AM. PT LAYING IN BED, BED ALARM ON AND IN LOW POSITION, CALL LIGHT IN REACH. WILL CONTINUE TO MONITOR
--- NOTE | 2021-10-25 20:00 | NUR ---
PT IN BED AWAKE, BED IN LOW POSITION, CALL LIGHT IN REACH
--- NOTE | 2021-10-26 00:27 | NUR ---
PT IN BED ASLEEP NO DISTRESS NOTED, BED ALARM ON AND BED IN LOW POSITION, CALL LIGHT IN REACH
[2021-10-26 00:48] VITALS: BP 146/49
--- NOTE | 2021-10-26 04:10 | NUR ---
pt in bed asleep, no distressed noted, bed alarm on and in low position, call light in reach
[2021-10-26 05:06] VITALS: BP 136/52
[2021-10-26 05:09] LABS: HEMATOCRIT 27.5 % (37.0-47.0); HEMOGLOBIN 8.9 g/dl (12.0-16.0); MEAN CELL VOLUME 92.3 fL CALC (80.0-100.0); MEAN CORPUSCULAR HGB 29.9 pG CALC (26.0-32.0); MEAN CORPUSCULAR HGB CONC 32.4 g/dL CAL (32.0-36.0); RED BLOOD COUNT 2.98 mill/uL (4.20-5.60); RED CELL DISTRI WIDTH 14.4 % (11.5-15.5)
[2021-10-26 05:23] LABS: CREATININE 1.3 mg/dL (0.5-1.0); MAGNESIUM 1.7 mg/dL (1.6-2.3); POTASSIUM 3.4 mmol/l (3.5-5.1)
--- NOTE | 2021-10-26 07:00 | NUR ---
RECEIVE REPORT FROM KEN NICHOLS.
--- NOTE | 2021-10-26 08:00 | NUR ---
PATIENT SLEEPING. RESTING ON THE BED. STABLE AT THIS TIME.
[2021-10-26 08:10] VITALS: BP 136/52
[2021-10-26 10:30] VITALS: BP 156/72
[2021-10-26] MEDS ORDERED: VIBRAMYCIN100 M2 PO (11:48)
[2021-10-26] MEDS ORDERED: ATIVAN1 M1 PO (11:48)
== END 2021-10-26 14:34 | DRG 871 ==
LOC: ED 14:25 → ED-I 15:39 → ED 17:08 → MS2 17:09
PROVIDERS: Family Medicine; ADMIT Internal Medicine; ATTEND Internal Medicine
DX: A41.9 Sepsis, unspecified organism (principal); J18.9 Pneumonia, unspecified organism; G93.41 Metabolic encephalopathy; G93.40 Encephalopathy, unspecified; N17.9 Acute kidney failure, unspecified; R65.20 Severe sepsis without septic shock; I11.0 Hypertensive heart disease with heart failure; I50.9 Heart failure, unspecified; E11.9 Type 2 diabetes mellitus without complications; I25.10 Atherosclerotic heart disease of native coronary artery without angina pectoris; I48.0 Paroxysmal atrial fibrillation; G20 Parkinson's disease; F02.80 Dementia in other diseases classified elsewhere, unspecified severity, without behavioral disturbance, psychotic disturbance, mood disturbance, and anxiety; E78.5 Hyperlipidemia, unspecified; F41.9 Anxiety disorder, unspecified; F32.A Depression, unspecified; Z95.0 Presence of cardiac pacemaker; Z95.1 Presence of aortocoronary bypass graft; Z87.01 Personal history of pneumonia (recurrent); Z87.11 Personal history of peptic ulcer disease; Z66 Do not resuscitate; Z86.16 Personal history of COVID-19; Z20.822 Contact with and (suspected) exposure to COVID-19
CPT/HCPCS: G0378

== ENCOUNTER 2021-11-10 19:31 | Emergency (ER) | payer MEDICARE, OTHER ==
[~2021-11-10] VITALS: Ht 157.5 cm; Wt 75.0 kg
[~2021-11-10 19:31] MED LIST changes: +VIBRAMYCIN100 M2 PO
[2021-11-10 19:39] VITALS: BP 105/50
[2021-11-10 20:35] LABS: HEMATOCRIT 28.5 % (37.0-47.0); MEAN CELL VOLUME 94.7 fL CALC (80.0-100.0); MEAN CORPUSCULAR HGB 29.9 pG CALC (26.0-32.0); MEAN CORPUSCULAR HGB CONC 31.6 g/dL CAL (32.0-36.0); NEUT# 2.36 thou/uL (2.00-7.15); RED BLOOD COUNT 3.01 mill/uL (4.20-5.60); RED CELL DISTRI WIDTH 14.8 % (11.5-15.5)
[2021-11-10 20:58] LABS: BILIRUBIN, TOTAL 0.3 mg/dL (0.0-1.4); CREATININE 1.7 mg/dL (0.5-1.0)
[2021-11-10 21:02] LABS: ALBUMIN 3.6 g/dL (3.2-5.0); POTASSIUM 4.4 mmol/l (3.5-5.1); TOTAL PROTEIN 6.4 g/dL (6.3-8.2)
[2021-11-10 23:14] VITALS: BP 105/50
== END 2021-11-10 23:47 | disposition home or self-care (01) ==
LOC: ED 19:31
PROVIDERS: Family Medicine
DX: R10.31 Right lower quadrant pain (principal); R10.13 Epigastric pain; I10 Essential (primary) hypertension; E11.9 Type 2 diabetes mellitus without complications; Z95.1 Presence of aortocoronary bypass graft; Z86.16 Personal history of COVID-19
CPT/HCPCS: S0164

== ENCOUNTER 2021-12-22 14:11 | Observation (INO) | payer MEDICARE, OTHER ==
[~2021-12-22] VITALS: Ht 157.5 cm; Wt 66.0 kg
[2021-12-22] VITALS (7 sets, daily range): BP systolic 125–184; BP diastolic 52–77
[2021-12-22 14:55] LABS: IMMATURE GRANULOCYTES 0.1 % (0.0-5.0); MEAN CELL VOLUME 95.2 fL CALC (80.0-100.0); MEAN CORPUSCULAR HGB 29.6 pG CALC (26.0-32.0); MEAN CORPUSCULAR HGB CONC 31.1 g/dL CAL (32.0-36.0); NEUT# 6.04 thou/uL (2.00-7.15); RED BLOOD COUNT 3.95 mill/uL (4.20-5.60); RED CELL DISTRI WIDTH 15.1 % (11.5-15.5)
[2021-12-22 14:55] LABS: URINE BILIRUBIN - DIPSTICK NEGATIVE (NEGATIVE); URINE BLOOD DIPSTICK SMALL (NEGATIVE); URINE COLOR YELLOW; URINE GLUCOSE - DIPSTICK NEGATIVE (NEGATIVE); URINE KETONE NEGATIVE (NEGATIVE); URINE LEUK ESTERASE NEGATIVE (NEGATIVE); URINE PH 5.5 (4.5-8.0); URINE PROTEIN - DIPSTICK NEGATIVE (NEG-TRACE); URINE UROBILINOGEN - DIPSTICK 0.2 E.U./dL (0.2)
[2021-12-22 14:56] LABS: URINE NITRITE - DIPSTICK NEGATIVE (Negative)
[2021-12-22 14:58] LABS: HEMATOCRIT 37.6 % (37.0-47.0); HEMOGLOBIN 11.7 g/dl (12.0-16.0)
[2021-12-22 15:14] LABS: ALBUMIN 4.2 g/dL (3.2-5.0); ALKALINE PHOSPHATASE 107 u/l (38-126); ANION GAP 16 (6-22 (CALC)); BUN 23 mg/dL (8-23); BUN/CREATININE RATIO 12 (12-20 (CALC)); CARBON DIOXIDE 24 mmol/l (22-30); CHLORIDE 106 mmol/l (95-108); GFR FOR AFR.AMER. 29 ML/MIN (>=60 (CALC)); GFR OTHER RACES 24 ML/MIN (>=60 (CALC)); POTASSIUM 4.9 mmol/l (3.5-5.1); SGOT/AST 43 u/l (9-36); SODIUM 141 mmol/l (137-146)
[2021-12-22 15:26] LABS: BILIRUBIN, TOTAL 0.5 mg/dL (0.0-1.4)
[2021-12-23 04:27] VITALS: BP 166/70
[2021-12-23 04:30] VITALS: BP 163/73
[2021-12-23 11:12] VITALS: BP 174/67
[2021-12-23 16:36] VITALS: BP 164/78
[2021-12-24 00:35] VITALS: BP 134/57
[2021-12-24 04:41] VITALS: BP 160/56
[2021-12-24 06:34] LABS: HEMATOCRIT 36.8 % (37.0-47.0); HEMOGLOBIN 11.5 g/dl (12.0-16.0); IMMATURE GRANULOCYTES 0.2 % (0.0-5.0); MEAN CELL VOLUME 94.8 fL CALC (80.0-100.0); MEAN CORPUSCULAR HGB 29.6 pG CALC (26.0-32.0); MEAN CORPUSCULAR HGB CONC 31.3 g/dL CAL (32.0-36.0); NEUT# 2.12 thou/uL (2.00-7.15); RED BLOOD COUNT 3.88 mill/uL (4.20-5.60); RED CELL DISTRI WIDTH 14.8 % (11.5-15.5)
[2021-12-24 07:04] VITALS: BP 141/66
[2021-12-24 07:04] LABS: CREATININE 1.4 mg/dL (0.5-1.0); POTASSIUM 4.3 mmol/l (3.5-5.1)
[2021-12-24 08:00] VITALS: BP 141/66
[2021-12-24 11:25] VITALS: BP 166/86
== END 2021-12-24 16:03 | disposition home or self-care (01) ==
LOC: ED 14:11 → ED-I 15:00 → ED 15:00 → ED-I 16:30 → ED 16:45 → MS2 16:46
PROVIDERS: Family Medicine; ADMIT Internal Medicine; ATTEND Internal Medicine
DX: E86.0 Dehydration (principal); N17.9 Acute kidney failure, unspecified; I12.9 Hypertensive chronic kidney disease with stage 1 through stage 4 chronic kidney disease, or unspecified chronic kidney disease; E11.22 Type 2 diabetes mellitus with diabetic chronic kidney disease; N18.9 Chronic kidney disease, unspecified; I48.20 Chronic atrial fibrillation, unspecified; G20 Parkinson's disease; F02.80 Dementia in other diseases classified elsewhere, unspecified severity, without behavioral disturbance, psychotic disturbance, mood disturbance, and anxiety; I25.10 Atherosclerotic heart disease of native coronary artery without angina pectoris; E78.5 Hyperlipidemia, unspecified; F41.9 Anxiety disorder, unspecified; F32.A Depression, unspecified; Z95.0 Presence of cardiac pacemaker; Z95.1 Presence of aortocoronary bypass graft; Z87.11 Personal history of peptic ulcer disease; Z86.16 Personal history of COVID-19; Z20.822 Contact with and (suspected) exposure to COVID-19

== ENCOUNTER 2022-01-03 17:46 | Observation (INO) | payer MEDICARE, OTHER ==
[2022-01-03] VITALS (16 sets, daily range): BP systolic 104–169; BP diastolic 43–73
[~2022-01-03] VITALS: Ht 157.5 cm; Wt 64.0 kg
[2022-01-03 18:23] LABS: HEMATOCRIT 32.5 % (37.0-47.0); HEMOGLOBIN 10.3 g/dl (12.0-16.0); IMMATURE GRANULOCYTES 0.1 % (0.0-5.0); MEAN CELL VOLUME 94.5 fL CALC (80.0-100.0); MEAN CORPUSCULAR HGB 29.9 pG CALC (26.0-32.0); MEAN CORPUSCULAR HGB CONC 31.7 g/dL CAL (32.0-36.0); NEUT# 6.26 thou/uL (2.00-7.15); RED BLOOD COUNT 3.44 mill/uL (4.20-5.60); RED CELL DISTRI WIDTH 14.3 % (11.5-15.5)
[2022-01-03 18:36] LABS: ALBUMIN 3.9 g/dL (3.2-5.0); ALKALINE PHOSPHATASE 71 u/l (38-126); ANION GAP 15 (6-22 (CALC)); BILIRUBIN, TOTAL 0.7 mg/dL (0.0-1.4); BUN 27 mg/dL (8-23); BUN/CREATININE RATIO 11 (12-20 (CALC)); CARBON DIOXIDE 24 mmol/l (22-30); CHLORIDE 106 mmol/l (95-108); CREATININE 2.3 mg/dL (0.5-1.0); GFR FOR AFR.AMER. 24 ML/MIN (>=60 (CALC)); GFR OTHER RACES 20 ML/MIN (>=60 (CALC)); POTASSIUM 5.1 mmol/l (3.5-5.1); SGOT/AST 43 u/l (9-36); SODIUM 140 mmol/l (137-146); TOTAL PROTEIN 7.4 g/dL (6.3-8.2)
[2022-01-03 18:48] LABS: MYOGLOBIN 105 ng/mL (0 - 62)
[2022-01-03 19:48] LABS: URINE BILIRUBIN - DIPSTICK NEGATIVE (NEGATIVE); URINE BLOOD DIPSTICK LARGE (NEGATIVE); URINE COLOR YELLOW; URINE GLUCOSE - DIPSTICK NEGATIVE (NEGATIVE); URINE KETONE NEGATIVE (NEGATIVE); URINE LEUK ESTERASE NEGATIVE (NEGATIVE); URINE PH 5.5 (4.5-8.0); URINE PROTEIN - DIPSTICK NEGATIVE (NEG-TRACE); URINE UROBILINOGEN - DIPSTICK 0.2 E.U./dL (0.2)
[2022-01-03 19:51] LABS: URINE NITRITE - DIPSTICK NEGATIVE (Negative)
[2022-01-03 19:57] LABS: URINE SQUAMOUS EPITHELIAL CELL FEW EPI/hpf (0-FEW); URINE WBC 0-2 WBC/hpf (0-5)
[2022-01-03] MEDS ORDERED: GABAPENTIN100 MG PO (20:36)
[2022-01-03] MEDS ORDERED: XARELTO10 MG PO (20:40)
[2022-01-03] MEDS ORDERED: FAMOTIDINE20 M3 PO (20:41)
[2022-01-03] MEDS ORDERED: CEPHALEXIN500 MG PO (20:47)
[2022-01-04 05:01] VITALS: BP 122/53
[2022-01-04 05:51] VITALS: BP 122/53
[2022-01-04 07:05] VITALS: BP 117/54
[2022-01-04 08:00] VITALS: BP 144/60
[2022-01-04 10:21] VITALS: BP 124/56
[2022-01-04] MEDS ORDERED: GABAPENTIN300 M2 PO (11:40)
[2022-01-04 13:39] LABS: CREATININE 1.8 mg/dL (0.5-1.0)
[2022-01-04 13:40] LABS: POTASSIUM 3.8 mmol/l (3.5-5.1)
[2022-01-04 14:18] VITALS: BP 124/61
== END 2022-01-04 15:50 | disposition home health service (06) ==
LOC: ED 17:46 → ED-I 19:55 → ED 20:05 → MS2 20:06
PROVIDERS: Emergency Medicine; ADMIT Internal Medicine; ATTEND Internal Medicine
DX: R07.89 Other chest pain (principal); R53.1 Weakness; E86.0 Dehydration; N17.9 Acute kidney failure, unspecified; I48.0 Paroxysmal atrial fibrillation; I10 Essential (primary) hypertension; E11.9 Type 2 diabetes mellitus without complications; I25.10 Atherosclerotic heart disease of native coronary artery without angina pectoris; G20 Parkinson's disease; F02.80 Dementia in other diseases classified elsewhere, unspecified severity, without behavioral disturbance, psychotic disturbance, mood disturbance, and anxiety; E78.5 Hyperlipidemia, unspecified; F41.9 Anxiety disorder, unspecified; F32.A Depression, unspecified; Z95.1 Presence of aortocoronary bypass graft; Z86.16 Personal history of COVID-19; Z95.0 Presence of cardiac pacemaker; Z95.818 Presence of other cardiac implants and grafts; Z87.11 Personal history of peptic ulcer disease; Z20.822 Contact with and (suspected) exposure to COVID-19
CPT/HCPCS: G0378

== ENCOUNTER 2022-01-20 20:14 | Observation (INO) | payer MEDICARE, OTHER ==
[~2022-01-20] VITALS: Ht 157.5 cm; Wt 68.0 kg
[2022-01-20] VITALS (8 sets, daily range): BP systolic 96–118; BP diastolic 51–66
[~2022-01-20 20:14] MED LIST changes: +FAMOTIDINE20 M3 PO; +GABAPENTIN100 MG PO
--- NOTE | 2022-01-20 20:14 | NUR ---
PT TO ROOM VIA EMS
[2022-01-20 20:47] LABS: HEMATOCRIT 30.2 % (37.0-47.0); HEMOGLOBIN 9.5 g/dl (12.0-16.0); IMMATURE GRANULOCYTES 0.2 % (0.0-5.0); MEAN CELL VOLUME 94.4 fL CALC (80.0-100.0); MEAN CORPUSCULAR HGB 29.7 pG CALC (26.0-32.0); MEAN CORPUSCULAR HGB CONC 31.5 g/dL CAL (32.0-36.0); NEUT# 3.12 thou/uL (2.00-7.15); RED BLOOD COUNT 3.2 mill/uL (4.20-5.60); RED CELL DISTRI WIDTH 14.3 % (11.5-15.5)
[2022-01-20 20:57] LABS: ALBUMIN 3.6 g/dL (3.2-5.0); ALKALINE PHOSPHATASE 75 u/l (38-126); ANION GAP 15 (6-22 (CALC)); BUN 24 mg/dL (8-23); BUN/CREATININE RATIO 10 (12-20 (CALC)); CARBON DIOXIDE 19 mmol/l (22-30); CHLORIDE 108 mmol/l (95-108); CPK 32 u/l (30-165); CREATININE 2.4 mg/dL (0.5-1.0); GFR FOR AFR.AMER. 23 ML/MIN (>=60 (CALC)); GFR OTHER RACES 19 ML/MIN (>=60 (CALC)); MAGNESIUM 1.9 mg/dL (1.6-2.3); POTASSIUM 3.9 mmol/l (3.5-5.1); SGOT/AST 49 u/l (9-36); SODIUM 139 mmol/l (137-146); TOTAL PROTEIN 6.8 g/dL (6.3-8.2)
[2022-01-20 21:06] LABS: BILIRUBIN, TOTAL 0.3 mg/dL (0.0-1.4)
[2022-01-20 21:09] LABS: MYOGLOBIN 77 ng/mL (0 - 62)
[2022-01-20 21:15] LABS: URINE BILIRUBIN - DIPSTICK NEGATIVE (NEGATIVE); URINE BLOOD DIPSTICK SMALL (NEGATIVE); URINE COLOR YELLOW; URINE GLUCOSE - DIPSTICK NEGATIVE (NEGATIVE); URINE KETONE NEGATIVE (NEGATIVE); URINE LEUK ESTERASE NEGATIVE (NEGATIVE); URINE NITRITE - DIPSTICK NEGATIVE (Negative); URINE PROTEIN - DIPSTICK NEGATIVE (NEG-TRACE); URINE SPECIFIC GRAVITY 1.015; URINE UROBILINOGEN - DIPSTICK 0.2 E.U./dL (0.2)
[2022-01-20 21:27] LABS: TSH, 3RD GENERATION 1.08 uIU/mL (0.47 - 4.68)
[2022-01-20 21:30] LABS: URINE SQUAMOUS EPITHELIAL CELL FEW EPI/hpf (0-FEW); URINE WBC 0-2 WBC/hpf (0-5)
--- NOTE | 2022-01-20 21:49 | NUR ---
PT ARRIVED VIA EMS DISORIENTED, A/O X2. PT WAS CLOTHED IN LARGE WINTER JACKET, SKIN WAS WARM, TEMP ELEVATED @ 99.6. REMOVED CLOTHING, GOWN DONNED. FOLLOWING LAB DRAW, STRAIGHT CATH WAS ORDERED TO RETAIN URINE SAMPLE. PT WAS SOILED WITH LOOSE, FOUL STOOL. PT WAS CLEANED, WITH LINEN CHANGE. STRAIGHT CATH PERFORMED, PT TOLERATED WELL.
--- NOTE | 2022-01-20 21:54 | NUR ---
PT DAUGHTER CALLED TO GET UPDATE ON PT. REASSURED FAMILY AND REVIEWED CURRENT CARE PLAN. DAUGHTER DID STATE THAT PT HAD EXTREME CONSTIPATION YESTERDAY AND SHE HAD TO USE DIGIT TENCHNIQUE TO REMOVE STOOL. FAMILY WILL CALL LATER TO OBTAIN FURTHER RESULTS. PT IS COMFORTABLE WITH LIGHTS DIMMED AND RESTING. WILL CONTINUE TO MONITOR.
--- NOTE | 2022-01-20 22:52 | NUR ---
PT IS STABLE, COMFORTABLE AND AWAITING TRANSFER TO FLOOR. BED ASSIGNMENT HAS BEEN GIVEN, SBAR PRINTED AND SENT.
--- NOTE | 2022-01-20 23:26 | NUR ---
PT TRANSFERRED UPSTAIRS TO RM [id number]
--- NOTE | 2022-01-20 23:30 | NUR ---
PATIENT ARRIVE TO UNIT VIA STRETCHER ACCOMPANIED BY ER NURSE. BEDSIDE NURSE REPORT RECEIVE. PT HERE FOR WEAKNESS/DEHYDRRATION. ASSESMENT COMPLETED. PT HAS DEMENTIA AND IS UNABLE TO RECALL SOME OF INFO. REDNESS NOTED ON COCCYX. A&O X1. IV STARTED TO LW 20G NS @ 125 ML/HR. PT ORIENTED TO ROOM AND CALL SYSTEM. CALL LIGHT IN REACH. BED IN LOWEST POSITION AND BED ALARM ON. CONTINUE TO MONITOR.
[2022-01-21 00:23] VITALS: BP 106/50
--- NOTE | 2022-01-21 04:34 | NUR ---
PATIENT IN BED RESTING WITH EYES CLOSED BREATHING EVEN AND UNLABORED. NO S/S OF DISTRESS NOTED. CALL LIGHT IN REACH. BED IN LOWEST POSITION AND BED ALARM ON.
[2022-01-21 04:51] VITALS: BP 129/59
[2022-01-21 06:55] VITALS: BP 119/56
--- NOTE | 2022-01-21 06:55 | NUR ---
RECEIVED REPORT FROM ANU CAT.
--- NOTE | 2022-01-21 08:00 | NUR ---
PT IN BED SLIGHTLY AWAKE; A&0X2. EVEN AND UNLABORED RESPIRATIONS; CLEAR LUNG SOUNDS UPON AUSCULTATION. IV SITE HEALTHY AND PATENT. ACTIVE BOWEL SOUNDS X4 QUADRANTS. SAFETY PRECAUTIONS IN PLACE WITH CALL LIGHT IN REACH.
[2022-01-21] MEDS ORDERED: BUSPIRONE5 MG PO (08:47)
[2022-01-21] MEDS ORDERED: CEPHALEXIN250 M3 PO (08:48)
[2022-01-21 11:26] VITALS: BP 136/54
--- NOTE | 2022-01-21 12:10 | NUR ---
PT IN BED, WATCHING TV. NO DISTRESS OR PAIN NOTED. NO NEEDS AT THE TIME. SAFETY PRECAUTIONS IN PLACE WITH CALL LIGHT IN REACH.
--- NOTE | 2022-01-21 13:30 | NUR ---
BED ALARM WENT OFF; PT GOT OUT OF BED. PT STATING SHE WANTS TO GO HOME. CARPET INSTALLER HELPER AND AIDE TRIED TO CALM PT DOWN; PT PUSHING AND PUNCHING STAFF. CARPET INSTALLER HELPER AND SATT KEEP TELLING PT SHE IS NOT IN CONDITION TO GO HOME. PT STILL ACTING AGRESSIVE. PT WALKING ON HALLWAY, WHILE CARPET INSTALLER HELPER TRIED TO CONVINCE HER TO GO BACK TO ROOM. PT BACK IN ROOM. DR DUFFY NOTIFIED; DR BERTHA ROJO, WAITING ON PHARMACY TO BRING MEDICATION. SAFETY PRECAUTIONS IN PLACE.
--- NOTE | 2022-01-21 14:07 | NUR ---
ZYPREXA IM ADMINISTERED BY MAGDALENA BUSH. PT STILL AGRESSIVE. QUOTATION CLERK NOTIFIED; QUOTATION CLERK IN ROOM TALKING TO PT. PT'S DAUGHTER NOTIFIED OF CURRENT SITUATION; DAUGHTER IS ON HER WAY TO [facility]. SAFETY PRECAUTIONS IN [place] WITH CALL LIGHT IN REACH.
--- NOTE | 2022-01-21 15:30 | NUR ---
PT WALKING OUT OF ROOM, AGITATED, AGGRESSIVE AND CURSING TO STAFF; ATTEMPTING TO LEAVE. DR AUSTIN NOTIFIED AND ORDERED ANOTHER DOSE OF ZYPREXA. JOHN, GEAR ROOM KEEPER TALKED TO PT AND WALKED PT BACK TO ROOM. ADMINISTERED ZYPREXA PER EMAR. BED ALARM AND SAFETY PRECAUTIONS IN PLACE.
--- NOTE | 2022-01-21 16:19 | NUR ---
PT SLEEPING. NO DISTRESS OR PAIN NOTED. BED ALARM AND SAFETY PRECAUTIONS IN PLACE WITH CALL LIGHT IN REACH.
--- NOTE | 2022-01-21 18:52 | NUR ---
REPORT RECEIVED FROM Arjun DIMAS LPN
[2022-01-21 19:15] VITALS: BP 140/57
--- NOTE | 2022-01-21 19:45 | NUR ---
PATIENT UP TO THE BSC WITH MINIMUM ASSITANCE OF WRITTER PROVIDED. WRITTER AT BEDSIDE, ASSISTED BACK TO BED BY WRITTER. BE ALARM IN PLACE FOR SAFETY
--- NOTE | 2022-01-21 20:48 | NUR ---
MEDICATIOSN ADMINISTERED PER SEP.
--- NOTE | 2022-01-22 00:45 | NUR ---
PATIENT RESTING QUIETLY WITH BLANKET OVER HEAD. PATIENT AWOKEN BY WRITTER FOR MIDNIGHT ANTIBIOTIC. PATIENT TOLERATED WELL. CALL LIGHT AND BEDSIDE TABLE WITHIN REACH. BED ALARM ON FOR SAFETY.
--- NOTE | 2022-01-22 04:30 | NUR ---
PLANTING MACHINE CREWMAN IN TO DRAW PATIENT MORNING BLOOD WORK. TECH STARTLED PATIENT AND PATIENT IS NOW ASKING FOR HER "BABY" PATIENT ADVISED HER BABY IS BEING TAKEN CARE OF BY HER DAUGHTER WHILE SHE RECOVERS. PATIENT STATES "OK" AND HIDES UNDER COVERS ONCE MORE. CALL LIGHT WITHIN REACH, BEDSIDE TABLE WITHIN REACH. PATIENT DENIES THE NEED TO USE THE RESTROOM AT THIS TIME. BED ALARM REMAINS IN PLACE FOR SAFETY.
[2022-01-22 05:00] VITALS: BP 137/61
[2022-01-22 05:17] LABS: HEMATOCRIT 28.7 % (37.0-47.0); HEMOGLOBIN 9.2 g/dl (12.0-16.0); MEAN CELL VOLUME 90.8 fL CALC (80.0-100.0); MEAN CORPUSCULAR HGB 29.1 pG CALC (26.0-32.0); MEAN CORPUSCULAR HGB CONC 32.1 g/dL CAL (32.0-36.0); RED BLOOD COUNT 3.16 mill/uL (4.20-5.60); RED CELL DISTRI WIDTH 14.1 % (11.5-15.5)
[2022-01-22 05:35] LABS: CREATININE 1.5 mg/dL (0.5-1.0); MAGNESIUM 2.1 mg/dL (1.6-2.3); POTASSIUM 4.6 mmol/l (3.5-5.1)
--- NOTE | 2022-01-22 06:40 | NUR ---
RECEIVED REPORT FROM MAGDALENA CASAS.
[2022-01-22 07:20] VITALS: BP 150/70
--- NOTE | 2022-01-22 08:00 | NUR ---
PT IN BED WATCHING TV; ALERT TO SELF. EVEN AND UNLABORED RESPIRATIONS; CLEAR LUNG SOUNDS UPON AUSCULTATION. IV SITE HEALTHY AND PATENT. ACTIVE BOWEL SOUNDS X4 QUADRANTS. BED ALARM AND SAFETY PRECAUTIONS IN PLACE WITH CALL LIGHT IN REACH.
[2022-01-22 09:40] VITALS: BP 150/70
--- NOTE | 2022-01-22 10:44 | NUR ---
PT AT THE BEDSIDE
[2022-01-22] MEDS ORDERED: (None)125 MG PO (10:59)
--- NOTE | 2022-01-22 11:31 | NUR ---
Pt resting n bed, c/o being cold, she was unable to give birthdate. 0- Pt performed AROM ex x 20 reps to BLEs including heelslide, hip abd/add, SAQ and ankle DF. Pt moved suine to sit using bed rail indep, sit to stand and transfers with supervision, Gait without assist device 1x 30' with min assist, with RW 1 x30' with supervision. Pt has poor safety skills, walks without waiting for assist, does not reach for chair before sitting or push off of chair when standing. BP 129/61, HR 60, 02sats 99% A- Pt moving better today from evaluation but requires supervision min assist with all mobility. [facility]- Will follow for mobility and safety while inpt status.
--- NOTE | 2022-01-22 12:30 | NUR ---
PT SITTING ON RECLINER; PT ASSISTED TO BED BY AIDES. ADMINISTERED SCHEDULED ANTIBIOTIC AT THIS TIME. WARMED BLANKET PROVIDED PER PT'S REQUEST. BED ALARM AND SAFETY PRECAUTIONS IN PLACE WITH CALL LIGHT IN REACH.
--- NOTE | 2022-01-22 13:25 | NUR ---
PT LEFT @1325. Discharge instructions given. Patient verbalizes understanding of same. Discharged in stable condition via Wheelchair to Home with staff. All belongings sent with pt.
--- NOTE | 2022-01-22 13:25 | NUR ---
PT'S DAUGHTER EDUCATED ON D/C INSTRUCTIONS. REMOVED IV: #22 LEFT WRIST, CATHETER INTACT UPON REMOVAL, PT TOLERATED WELL.
== END 2022-01-22 13:25 | disposition home health service (06) ==
LOC: ED 20:14 → MS2 22:36
PROVIDERS: Family Medicine; Hospitalist; ADMIT Internal Medicine; ATTEND Internal Medicine
DX: E86.0 Dehydration (principal); N17.9 Acute kidney failure, unspecified; A04.72 Enterocolitis due to Clostridium difficile, not specified as recurrent; I12.9 Hypertensive chronic kidney disease with stage 1 through stage 4 chronic kidney disease, or unspecified chronic kidney disease; E11.22 Type 2 diabetes mellitus with diabetic chronic kidney disease; N18.9 Chronic kidney disease, unspecified; G20 Parkinson's disease; F02.80 Dementia in other diseases classified elsewhere, unspecified severity, without behavioral disturbance, psychotic disturbance, mood disturbance, and anxiety; I25.10 Atherosclerotic heart disease of native coronary artery without angina pectoris; E03.9 Hypothyroidism, unspecified; E78.5 Hyperlipidemia, unspecified; I48.20 Chronic atrial fibrillation, unspecified; F41.9 Anxiety disorder, unspecified; F32.A Depression, unspecified; Z95.1 Presence of aortocoronary bypass graft; Z86.16 Personal history of COVID-19; Z91.81 History of falling; Z87.11 Personal history of peptic ulcer disease; Z79.01 Long term (current) use of anticoagulants; Z20.822 Contact with and (suspected) exposure to COVID-19; Z95.0 Presence of cardiac pacemaker
CPT/HCPCS: S0166

== ENCOUNTER 2022-02-07 15:20 | Inpatient (IN) | payer MEDICARE, OTHER ==
[~2022-02-07] VITALS: Ht 157.5 cm; Wt 64.0 kg
[2022-02-07] VITALS (19 sets, daily range): BP systolic 109–170; BP diastolic 53–130
[~2022-02-07 15:20] MED LIST changes: +(None)125 MG PO; +BUSPIRONE5 MG PO
[2022-02-07 16:20] LABS: HEMATOCRIT 32.6 % (37.0-47.0); HEMOGLOBIN 10.3 g/dl (12.0-16.0); IMMATURE GRANULOCYTES 0.2 % (0.0-5.0); MEAN CELL VOLUME 93.4 fL CALC (80.0-100.0); MEAN CORPUSCULAR HGB 29.5 pG CALC (26.0-32.0); MEAN CORPUSCULAR HGB CONC 31.6 g/dL CAL (32.0-36.0); NEUT# 3.27 thou/uL (2.00-7.15); RED BLOOD COUNT 3.49 mill/uL (4.20-5.60); RED CELL DISTRI WIDTH 14.4 % (11.5-15.5)
[2022-02-07 16:36] LABS: INTERNATIONAL NORMALIZED RATIO 1.3 RATIO (0.7-1.3); PROTHROMBIN TIME 13.3 SECONDS (9.0-12.5)
[2022-02-07 16:38] LABS: ALBUMIN 4.1 g/dL (3.2-5.0); ALKALINE PHOSPHATASE 70 u/l (38-126); ANION GAP 15 (6-22 (CALC)); BILIRUBIN, TOTAL 0.3 mg/dL (0.0-1.4); CARBON DIOXIDE 23 mmol/l (22-30); CHLORIDE 108 mmol/l (95-108); GFR FOR AFR.AMER. 11 ML/MIN (>=60 (CALC)); GFR OTHER RACES 9 ML/MIN (>=60 (CALC)); SGOT/AST 38 u/l (9-36); SODIUM 141 mmol/l (137-146); TOTAL PROTEIN 7.7 g/dL (6.3-8.2)
[2022-02-07 16:44] LABS: BUN 40 mg/dL (8-23); BUN/CREATININE RATIO 9 (12-20 (CALC)); CREATININE 4.7 mg/dL (0.5-1.0)
[2022-02-07 17:10] LABS: URINE BILIRUBIN - DIPSTICK NEGATIVE (NEGATIVE); URINE BLOOD DIPSTICK MODERATE (NEGATIVE); URINE COLOR YELLOW; URINE GLUCOSE - DIPSTICK NEGATIVE (NEGATIVE); URINE KETONE NEGATIVE (NEGATIVE); URINE LEUK ESTERASE NEGATIVE (NEGATIVE); URINE PROTEIN - DIPSTICK NEGATIVE (NEG-TRACE); URINE UROBILINOGEN - DIPSTICK 0.2 E.U./dL (0.2)
[2022-02-07 17:12] LABS: URINE NITRITE - DIPSTICK NEGATIVE (Negative)
[2022-02-07 17:13] LABS: URINE SQUAMOUS EPITHELIAL CELL RARE EPI/hpf (0-FEW); URINE WBC 0-2 WBC/hpf (0-5)
[2022-02-07] MEDS ORDERED: SERTRALINE100 MG PO (18:18)
[2022-02-08] VITALS (7 sets, daily range): BP systolic 116–164; BP diastolic 66–130
[2022-02-08 05:33] LABS: HEMATOCRIT 28.8 % (37.0-47.0); HEMOGLOBIN 9.4 g/dl (12.0-16.0); MEAN CELL VOLUME 90.9 fL CALC (80.0-100.0); MEAN CORPUSCULAR HGB 29.7 pG CALC (26.0-32.0); MEAN CORPUSCULAR HGB CONC 32.6 g/dL CAL (32.0-36.0); RED BLOOD COUNT 3.17 mill/uL (4.20-5.60); RED CELL DISTRI WIDTH 14.3 % (11.5-15.5)
[2022-02-08 05:50] LABS: CREATININE 4.2 mg/dL (0.5-1.0); MAGNESIUM 2.2 mg/dL (1.6-2.3); POTASSIUM 4.9 mmol/l (3.5-5.1)
[2022-02-09] VITALS (9 sets, daily range): BP systolic 138–176; BP diastolic 68–81
[2022-02-09 05:22] LABS: ALBUMIN 3.6 g/dL (3.2-5.0); BUN 35 mg/dL (8-23); CARBON DIOXIDE 23 mmol/l (22-30); CHLORIDE 114 mmol/l (95-108); CREATININE 3.9 mg/dL (0.5-1.0); GFR FOR AFR.AMER. 13 ML/MIN (>=60 (CALC)); GFR OTHER RACES 11 ML/MIN (>=60 (CALC)); SODIUM 144 mmol/l (137-146)
[2022-02-09 05:24] LABS: POTASSIUM 5.3 mmol/l (3.5-5.1)
[2022-02-10] VITALS (9 sets, daily range): BP systolic 142–172; BP diastolic 53–87
[2022-02-10 08:51] LABS: ALBUMIN 3.2 g/dL (3.2-5.0); CREATININE 3.2 mg/dL (0.5-1.0); POTASSIUM 5.1 mmol/l (3.5-5.1)
[2022-02-11] VITALS: BP 148/60
[2022-02-11 03:55] VITALS: BP 129/66
[2022-02-11 04:00] VITALS: BP 129/66
[2022-02-11 05:34] LABS: HEMATOCRIT 28.3 % (37.0-47.0); HEMOGLOBIN 9.2 g/dl (12.0-16.0); MEAN CELL VOLUME 91.3 fL CALC (80.0-100.0); MEAN CORPUSCULAR HGB 29.7 pG CALC (26.0-32.0); MEAN CORPUSCULAR HGB CONC 32.5 g/dL CAL (32.0-36.0); NEUT# 3.15 thou/uL (2.00-7.15); RED BLOOD COUNT 3.1 mill/uL (4.20-5.60); RED CELL DISTRI WIDTH 14.4 % (11.5-15.5)
[2022-02-11 05:58] LABS: ALBUMIN 2.9 g/dL (3.2-5.0); BILIRUBIN, TOTAL 0.3 mg/dL (0.0-1.4); POTASSIUM 4.7 mmol/l (3.5-5.1)
[2022-02-11 06:02] LABS: TOTAL PROTEIN 5.9 g/dL (6.3-8.2)
[2022-02-11 07:06] VITALS: BP 141/64
[2022-02-11 10:43] VITALS: BP 157/70
[2022-02-11 19:21] LABS: URINE BILIRUBIN - DIPSTICK NEGATIVE (NEGATIVE); URINE BLOOD DIPSTICK TRACE-INTACT (NEGATIVE); URINE CLARITY SL CLOUDY; URINE COLOR YELLOW; URINE GLUCOSE - DIPSTICK NEGATIVE (NEGATIVE); URINE KETONE NEGATIVE (NEGATIVE); URINE LEUK ESTERASE LARGE (Negative); URINE NITRITE - DIPSTICK POSITIVE (Negative); URINE PH 7.5 (4.5-8.0); URINE PROTEIN - DIPSTICK TRACE mg/dL (NEG-TRACE); URINE SPECIFIC GRAVITY 1.025; URINE UROBILINOGEN - DIPSTICK 0.2 E.U./dL (0.2)
[2022-02-11 19:27] VITALS: BP 142/50
[2022-02-11 19:29] LABS: URINE BACTERIA MANY hpf; URINE SQUAMOUS EPITHELIAL CELL FEW EPI/hpf (0-FEW)
[2022-02-12 01:04] VITALS: BP 141/66
[2022-02-12 05:01] VITALS: BP 157/64
[2022-02-12 06:03] LABS: CREATININE 2.7 mg/dL (0.5-1.0); MAGNESIUM 1.7 mg/dL (1.6-2.3); POTASSIUM 4.5 mmol/l (3.5-5.1)
[2022-02-12 06:27] VITALS: BP 161/71
[2022-02-12 10:50] VITALS: BP 159/70
[2022-02-12 18:59] VITALS: BP 144/46
[2022-02-12 23:58] VITALS: BP 157/53
[2022-02-13 05:38] LABS: ALBUMIN 3.4 g/dL (3.2-5.0); CREATININE 2.5 mg/dL (0.5-1.0)
[2022-02-13 06:58] VITALS: BP 160/60
[2022-02-13] MEDS ORDERED: HYDRALAZINE HCL50 MG PO (10:47)
[2022-02-13 10:55] VITALS: BP 145/53
[2022-02-13] MEDS ORDERED: K-PHO1 PO (11:55)
== END 2022-02-13 12:00 | disposition home health service (06) | DRG 71 ==
LOC: ED 15:20 → ED-I 17:30 → ED 19:24 → MS2 19:25
PROVIDERS: Internal Medicine; Internal Medicine Nephrology; Nurse Practitioner; ADMIT Internal Medicine; ATTEND Internal Medicine
DX: G93.41 Metabolic encephalopathy (principal); N17.9 Acute kidney failure, unspecified; I13.0 Hypertensive heart and chronic kidney disease with heart failure and stage 1 through stage 4 chronic kidney disease, or unspecified chronic kidney disease; E87.2 Acidosis; F03.90 Unspecified dementia, unspecified severity, without behavioral disturbance, psychotic disturbance, mood disturbance, and anxiety; E86.9 Volume depletion, unspecified; E11.22 Type 2 diabetes mellitus with diabetic chronic kidney disease; N18.30 Chronic kidney disease, stage 3 unspecified; I50.9 Heart failure, unspecified; I48.0 Paroxysmal atrial fibrillation; D63.1 Anemia in chronic kidney disease; I25.10 Atherosclerotic heart disease of native coronary artery without angina pectoris; E83.39 Other disorders of phosphorus metabolism; E87.5 Hyperkalemia; F41.9 Anxiety disorder, unspecified; F32.A Depression, unspecified; Z95.1 Presence of aortocoronary bypass graft; Z95.0 Presence of cardiac pacemaker; Z95.818 Presence of other cardiac implants and grafts; Z91.81 History of falling; E78.5 Hyperlipidemia, unspecified; Z87.11 Personal history of peptic ulcer disease; Z79.01 Long term (current) use of anticoagulants; Z86.16 Personal history of COVID-19; Z20.822 Contact with and (suspected) exposure to COVID-19
CPT/HCPCS: J2060; S0166

== ENCOUNTER 2022-02-23 18:29 | Observation (INO) | payer MEDICARE, OTHER ==
[~2022-02-23] VITALS: Ht 157.5 cm; Wt 73.0 kg
[2022-02-23] VITALS (16 sets, daily range): BP systolic 128–168; BP diastolic 56–104
[~2022-02-23 18:29] MED LIST changes: +HYDRALAZINE HCL50 MG PO; +K-PHO1 PO; +SERTRALINE100 MG PO
--- NOTE | 2022-02-23 18:30 | NUR ---
PT TO ROOM VIA WC WITH DAUGHTER
--- NOTE | 2022-02-23 19:17 | NUR ---
ALERT CONFUSED BY HX PT PLEASANT IN NO DISTRESS NO DYSPNEA NO WHEEZE CLEAR BILAT BREATH SOUNDS PINK MOIST MM.
[2022-02-23 20:34] LABS: HEMATOCRIT 30.9 % (37.0-47.0); HEMOGLOBIN 9.8 g/dl (12.0-16.0); MEAN CELL VOLUME 92.8 fL CALC (80.0-100.0); MEAN CORPUSCULAR HGB 29.4 pG CALC (26.0-32.0); MEAN CORPUSCULAR HGB CONC 31.7 g/dL CAL (32.0-36.0); NEUT# 2.93 thou/uL (2.00-7.15); RED BLOOD COUNT 3.33 mill/uL (4.20-5.60); RED CELL DISTRI WIDTH 15.2 % (11.5-15.5)
--- NOTE | 2022-02-23 20:40 | NUR ---
PT UNABLE TO VOID UA SPEC PERINEUM CLEANSED OF DRIED FECVAL MATERIAL.PT IS UNCJANGED NO DYSPNEA NO WHEEZE BILAT BREATH SOUNDS EQ AND CLEAR
[2022-02-23 20:47] LABS: ALBUMIN 3.8 g/dL (3.2-5.0); ALKALINE PHOSPHATASE 77 u/l (38-126); BILIRUBIN, TOTAL 0.3 mg/dL (0.0-1.4); BUN 22 mg/dL (8-23); BUN/CREATININE RATIO 10 (12-20 (CALC)); CHLORIDE 114 mmol/l (95-108); CREATININE 2.2 mg/dL (0.5-1.0); GFR FOR AFR.AMER. 26 ML/MIN (>=60 (CALC)); GFR OTHER RACES 21 ML/MIN (>=60 (CALC)); POTASSIUM 4.5 mmol/l (3.5-5.1); SGOT/AST 59 u/l (9-36); SODIUM 143 mmol/l (137-146)
[2022-02-23 20:48] LABS: ANION GAP 11 (6-22 (CALC)); CARBON DIOXIDE 23 mmol/l (22-30); TOTAL PROTEIN 7.2 g/dL (6.3-8.2)
[2022-02-23 20:57] LABS: MYOGLOBIN 92 ng/mL (0 - 62)
--- NOTE | 2022-02-23 21:40 | NUR ---
WArm blanket at request.gcs unchanged at 14.denies pain no /s of dyspnea
--- NOTE | 2022-02-23 22:50 | NUR ---
IV FLUIDS INFUSING RAC GCS 14 SPEECH CLEAR NO FOCAL WEAKNESSES.
[2022-02-23 22:58] LABS: URINE BILIRUBIN - DIPSTICK NEGATIVE (NEGATIVE); URINE BLOOD DIPSTICK NEGATIVE (NEGATIVE); URINE COLOR YELLOW; URINE GLUCOSE - DIPSTICK NEGATIVE (NEGATIVE); URINE KETONE NEGATIVE (NEGATIVE); URINE LEUK ESTERASE SMALL (NEGATIVE); URINE NITRITE - DIPSTICK POSITIVE (Negative); URINE PROTEIN - DIPSTICK NEGATIVE (NEG-TRACE); URINE UROBILINOGEN - DIPSTICK 0.2 E.U./dL (0.2)
[2022-02-23 23:01] LABS: URINE RBC 0-2 RBC/hpf (0-5)
[2022-02-23 23:02] LABS: URINE BACTERIA MANY hpf; URINE SQUAMOUS EPITHELIAL CELL FEW EPI/hpf (0-FEW); URINE WBC 20-50 WBC/hpf (0-5)
--- NOTE | 2022-02-23 23:51 | NUR ---
W/P/D SKIN SPEECH CLEAR GCS 14 UNCHANGED.AV SEQ PCED RHYTHM 60BPM.
[2022-02-24] VITALS (11 sets, daily range): BP systolic 75–177; BP diastolic 43–149
--- NOTE | 2022-02-24 00:40 | NUR ---
PHONE REPORT TO NURSE MIX ON MS
--- NOTE | 2022-02-24 00:45 | NUR ---
PT TRANSPORTED TO [facility] RM 271 ON TELE IN STABLE CONDITION
--- NOTE | 2022-02-24 00:52 | NUR ---
PATIENT ARRIVED TO MS2 VIA STRETCHER ACCOMPANIED BY ER NURSE, PT ALERT TO SELF APPEARS ANXIOUS, PT TRANSFERED FROM STRETCHER TO BED X3 ASSIST. TORRES DRAINING TO GRAVITY YELLOW URINE NOTED, LEG STRAP PLACED. BUTTOCK APPEARS REDDENED. ABD SOFT UNABLE TO OBTAIN INFORMATION FROM PATIENT. OBEYS COMMANDS, ATTEMPTED TO ORIENT TO CALL LIGHT, BED ALARM IN PLACE FOR SAFETY, CALL LIGHT IN REACH, ADMISSION ASSESSMENT COMPLETED, IV FLUIDS CONTINUED, CONTINUE TO MONITOR.
--- NOTE | 2022-02-24 04:13 | NUR ---
PT HAD A BM, PERICARE GIVEN, LINENS CHANGED. BARRIER CREAM APPLIED TO REDDENED BUTTOCK, PT TOLERATED WELL. TORRES DRAINING TO GRAVITY, LEG STRAP IN PLACED. BED ALARM FOR SAFETY, CALL LIGHT IN REACH, CONTINUE TO MONITOR.
--- NOTE | 2022-02-24 07:30 | NUR ---
SHIFT CHANGE REPORT, PT SLEEPING IN LEFT SIDE-LYING POSITION, DOES NOT RESPONDS TO VERBAL STIMULI AT THIS TIME, IVF OF 0.9 NS INFUSING AT 125ML/HR TO SITE IN TESS, TELE MOITOR IN PLACE, TORRES CATHETER IN PLACE WITH CLEAR YELLOW URINE, CALL BAEZ IN REACH AND BED LOCKED IN LOWEST POSITION.
--- NOTE | 2022-02-24 10:22 | NUR ---
STILL DIFFICULT TO BE AWAKENED BUT OPENS EYES, RESPONDS TO COMMANDS TO STRETCH OUT ARM FOR BP MEASUREMENT, TOO LETHARGIC TO HAVE ORAL INTAKE BUT STAFF WILL CONTINUE TO MONITOR, BED ALARM ON AND CALL BAEZ IN REACH.
--- NOTE | 2022-02-24 11:53 | NUR ---
STILL VERY GROGGY AT THIS TIME BUT GETTING MORE AWAKE, REFUSES TO EAT BUT OFFER LIQUIDS AND WILL ENCOURAGE EATING WITH ASSISTANCE.
--- NOTE | 2022-02-24 13:18 | NUR ---
AWAKE BUT GROGGY, GITTERY AND RESTLESS AT THIS TIME APPEMPTING TO REMOVE TORRES CATHETER, TREMORS TO EXTREMETIES AND SHIVERS, NO FEVER IDENTIFIED AT THIS TIME, WARM BLANKET, REFUSED TO EAT/DRINK. BED ALARM ON.
--- NOTE | 2022-02-24 14:09 | NUR ---
WENT INTO PATIENTS ROOM AND SHE PULLED HER TORRES OUT. TOLD NURSE
--- NOTE | 2022-02-24 15:29 | NUR ---
CONFUSED AT THIS TIME, BREATHING SHALLOW, COMBATIVE AND HITS STAFF, HYPOTENSIVE, PULLED OUT TORRES CATHETER, DOES NOT SPEAK CLEARLY OR UDERSTANDABLY, CONTINUES TO HAVE BODY SHAKES/TREMORS. BP REMEASURED AND IS HYPERTENSIVE NOW, WILL CONTINUE TO MONITOR AND REPORT CHANGES TO MD.
--- NOTE | 2022-02-24 18:04 | NUR ---
RELAXED AT THIS TIME AND RESTING IN SUPINE POSITION.
--- NOTE | 2022-02-24 18:16 | NUR ---
CONSUMED 180 ML ORAL FLUIDS AND COUPLE BITES FOOD.
--- NOTE | 2022-02-24 19:48 | NUR ---
PT RESTING IN BED, NO SIGNS OF DISTRESS NOTED, RESP EVEN AND UNLABORED. PT APPEARS ANXIOUS, TREMORS. PT UNABLE TO STATE HER NAME, ONLY REPEATS WHAT DOUGH MIXER SAYS. MOVES EXTREMITIES, OBEYS SIMPLE COMMANDS. ASSESSMENT COMPLETED, PUREWICK IN PLACE. BED ALARM FOR SAFETY, CALL LIGHT IN REACH,CONTINUE TO MONITOR.
--- NOTE | 2022-02-25 | NUR ---
PT RESTING IN BED WITH EYES CLOSED, NO SIGNS OF DISTRESS NOTED, RESP EVEN AND UNLABORED. BED ALARM FOR SAFETY, CALL LIGHT IN REACH,CONTINUE TO MONITOR.
--- NOTE | 2022-02-25 03:57 | NUR ---
PT RESTING IN BED AWAKE, NO SIGNS OF DISTRESS NOTED, RESP EVEN AND UNLABORED. BED ALARM FOR SAFETY, CALL LIGHT IN REACH,CONTINUE TO MONITOR.
[2022-02-25 04:18] VITALS: BP 150/47
[2022-02-25 06:18] LABS: HEMATOCRIT 27.4 % (37.0-47.0); HEMOGLOBIN 8.7 g/dl (12.0-16.0); IMMATURE GRANULOCYTES 0.2 % (0.0-5.0); MEAN CELL VOLUME 93.2 fL CALC (80.0-100.0); MEAN CORPUSCULAR HGB 29.6 pG CALC (26.0-32.0); MEAN CORPUSCULAR HGB CONC 31.8 g/dL CAL (32.0-36.0); NEUT# 3.1 thou/uL (2.00-7.15); RED BLOOD COUNT 2.94 mill/uL (4.20-5.60); RED CELL DISTRI WIDTH 15.5 % (11.5-15.5)
[2022-02-25 06:38] VITALS: BP 146/68
--- NOTE | 2022-02-25 07:00 | NUR ---
RECEIVE REPORT FROM DOMINGUEZ NICHOLS.
[2022-02-25 07:06] LABS: CREATININE 1.6 mg/dL (0.5-1.0); MAGNESIUM 1.7 mg/dL (1.6-2.3); POTASSIUM 3.9 mmol/l (3.5-5.1)
--- NOTE | 2022-02-25 08:00 | NUR ---
PATIENT ALERT AND CONFUSED AT THIS TIME. VITAL SIGNS STABLE AT THIS NOTE TIME. TRIE TO EDUCATED PT ABOUD MEDICATIONS AND NURSING PLAN BUT IS NOT POSSIBLE. FALL AND SAFETY PRECAUTIONS IN PLACE. HEAD-TO TOE ASSESSMENT COMPLETE. CALL LIGHT WITHIN REACH. ROUNDS CONSTANLY FOR FALL PRECAUTION. BED ALARM IS ON.
--- NOTE | 2022-02-25 10:00 | NUR ---
PT SPIT ALL BY MOUTH MEDICATIONS THIS MORNING.
[2022-02-25 11:18] VITALS: BP 156/74
--- NOTE | 2022-02-25 12:22 | NUR ---
PATIENT CONTINUE CONFUSE. VITAL SIGNS STABLE AT THIS TIME. FALL AND SAFETY PRECUTIONS IN PLACE.
--- NOTE | 2022-02-25 16:00 | NUR ---
PATIENT STABLE AT THIS TIME. RESTING IN BED. PT CONTINUE CONFUSED BUT TAKE THE LAST MEDICATIONS.
[2022-02-25 16:16] VITALS: BP 172/78
[2022-02-25 19:26] VITALS: BP 148/66
[2022-02-25 19:30] VITALS: BP 152/65
--- NOTE | 2022-02-25 20:00 | NUR ---
RECEIVED REPORT FROM NURSE LIEBERMAN, ASSUMED PATIENT CARE.
--- NOTE | 2022-02-25 21:00 | NUR ---
PATEINT ALERT TO SELF ONLY, APPEARS SLEEPY, ATE APPLE SAUCE AND ENSURE FOR DINNER, TOOK MEDICATION WHOLE, DRANK TEA, HAS IV ON TESS G 22 ONGOING NS @ 75 CC/R INFUSING WELL, HOOKED ON TELEMETRY PACED 70, ACTIVE BOWEL SOUNDS CALL LIGHT AT REACH.
--- NOTE | 2022-02-26 00:28 | NUR ---
PATIENT APPEARS TO BE SLEEPING EASY TO AWAKEN, C/O BEING COLD, BLANKET PROVIDED, BED ALARM IN PLACE,
[2022-02-26 00:29] VITALS: BP 169/78
--- NOTE | 2022-02-26 04:31 | NUR ---
PATIENT AWAKE AT THIS TIME, REQUESTED SOMETHING TO DRINK, WATER AND APPLE JUICE GIVEN AT THIS TIME, DENIES PAIN, C/O BEING COLD, BLANKETS GIVEN, WENT BACK TPO SLEEP, CALL LIGHT AT REACH BED Alarm in place.
[2022-02-26 04:56] VITALS: BP 157/62
[2022-02-26 06:16] VITALS: BP 179/90
[2022-02-26 06:33] VITALS: BP 173/72
[2022-02-26 06:48] LABS: HEMATOCRIT 27.8 % (37.0-47.0); HEMOGLOBIN 8.8 g/dl (12.0-16.0); MEAN CELL VOLUME 92.7 fL CALC (80.0-100.0); MEAN CORPUSCULAR HGB 29.3 pG CALC (26.0-32.0); MEAN CORPUSCULAR HGB CONC 31.7 g/dL CAL (32.0-36.0); NEUT# 3.71 thou/uL (2.00-7.15); RED CELL DISTRI WIDTH 15.6 % (11.5-15.5)
--- NOTE | 2022-02-26 07:00 | NUR ---
REPORT RECEIVED FROM ACCOUNTING MACHINE OPERATOR SHIST PT RESTING IN BED. BREATHING EVEN AND UNLABORED. NO DISTRESS NOTED. FALL/SAFTEY PRECAUTION IN PLACE. CALL LIGHT WITHIN REACH.
[2022-02-26 07:22] LABS: BILIRUBIN, TOTAL 0.3 mg/dL (0.0-1.4); CREATININE 1.4 mg/dL (0.5-1.0); MAGNESIUM 1.6 mg/dL (1.6-2.3); POTASSIUM 3.6 mmol/l (3.5-5.1)
[2022-02-26 12:01] VITALS: BP 142/60
--- NOTE | 2022-02-26 12:18 | NUR ---
PT WITH AIDE AT BEDSIDE. FOOD ENCOURAGED. PT HAS LITTLE APPETITE. BREATHING EVEN AND UNLABORED. FALL/SAFTEY PRECAUTION IN PLACDE. BED ALARM ACTIVATED. CALL LIGHT WITHIN REACH
--- NOTE | 2022-02-26 13:01 | NUR ---
FAMILY MEMBER AT BEDSIDE
[2022-02-26] MEDS ORDERED: CIPROFLOXACN500 MG PO (13:21)
[2022-02-26 15:41] VITALS: BP 147/60
--- NOTE | 2022-02-26 16:04 | NUR ---
Discharge instructions given. Patient verbalizes understanding of same. Discharged in stable condition via Wheelchair to Home with staff. All belongings sent with pt.
== END 2022-02-26 16:04 | disposition home or self-care (01) ==
LOC: ED 18:29 → ED-I 23:03 → ED 23:20 → MS2 23:21
PROVIDERS: Emergency Medicine; Nurse Practitioner; ADMIT Internal Medicine; ATTEND Internal Medicine
PROC: 0T9B70Z Drainage of Bladder with Drainage Device, Via Natural or Artificial Opening (ICD-10-PCS; principal; 2022-02-23)
DX: N39.0 Urinary tract infection, site not specified (principal); G92.8 Other toxic encephalopathy; I10 Essential (primary) hypertension; E11.9 Type 2 diabetes mellitus without complications; I25.10 Atherosclerotic heart disease of native coronary artery without angina pectoris; G20 Parkinson's disease; F02.81 Dementia in other diseases classified elsewhere, unspecified severity, with behavioral disturbance; E03.9 Hypothyroidism, unspecified; E78.5 Hyperlipidemia, unspecified; I48.20 Chronic atrial fibrillation, unspecified; F41.9 Anxiety disorder, unspecified; F32.A Depression, unspecified; Z86.16 Personal history of COVID-19; Z87.11 Personal history of peptic ulcer disease; Z95.0 Presence of cardiac pacemaker; Z95.1 Presence of aortocoronary bypass graft; B96.89 Other specified bacterial agents as the cause of diseases classified elsewhere; R62.7 Adult failure to thrive; Z68.29 Body mass index [BMI] 29.0-29.9, adult; Z87.440 Personal history of urinary (tract) infections; Z20.822 Contact with and (suspected) exposure to COVID-19
CPT/HCPCS: G0378; S0166

== ENCOUNTER 2022-04-19 09:18 | Observation (INO) | payer MEDICARE, OTHER ==
[~2022-04-19] VITALS: Ht 157.5 cm; Wt 62.0 kg
[~2022-04-19 09:18] MED LIST changes: +CIPROFLOXACN500 MG PO
[2022-04-19] MEDS ORDERED: CEPHALEXIN500 MG PO (10:03)
[2022-04-19] MEDS ORDERED: PLAVIX75 MG PO (10:06)
[2022-04-19] MEDS ORDERED: ADULT ASPIRIN R81 MG PO (10:07)
[2022-04-19 10:55] LABS: ALBUMIN 3.7 g/dL (3.2-5.0); ALKALINE PHOSPHATASE 100 u/l (38-126); BILIRUBIN, TOTAL 0.5 mg/dL (0.0-1.4); BUN 20 mg/dL (8-23); BUN/CREATININE RATIO 15 (12-20 (CALC)); CHLORIDE 110 mmol/l (95-108); CREATININE 1.3 mg/dL (0.5-1.0); GFR FOR AFR.AMER. 47 ML/MIN (>=60 (CALC)); GFR OTHER RACES 39 ML/MIN (>=60 (CALC)); LIPASE 14 u/l (23-300); POTASSIUM 4.3 mmol/l (3.5-5.1); SODIUM 137 mmol/l (137-146); TOTAL PROTEIN 6.9 g/dL (6.3-8.2)
[2022-04-19 10:58] LABS: ANION GAP 14 (6-22 (CALC)); CARBON DIOXIDE 17 mmol/l (22-30); SGOT/AST 95 u/l (9-36)
[2022-04-19 11:00] LABS: IMMATURE GRANULOCYTES 0.2 % (0.0-5.0); MEAN CORPUSCULAR HGB 29.6 pG CALC (26.0-32.0); MEAN CORPUSCULAR HGB CONC 32.2 g/dL CAL (32.0-36.0); NEUT# 4.47 thou/uL (2.00-7.15); RED BLOOD COUNT 1.99 mill/uL (4.20-5.60); RED CELL DISTRI WIDTH 14.5 % (11.5-15.5)
[2022-04-19 11:06] LABS: HEMATOCRIT 18.3 % (37.0-47.0); HEMOGLOBIN 5.9 g/dl (12.0-16.0)
[2022-04-19 11:07] LABS: URINE BILIRUBIN - DIPSTICK NEGATIVE (NEGATIVE); URINE BLOOD DIPSTICK SMALL (NEGATIVE); URINE COLOR YELLOW; URINE GLUCOSE - DIPSTICK NEGATIVE (NEGATIVE); URINE KETONE TRACE mg/dL (NEGATIVE); URINE LEUK ESTERASE NEGATIVE (NEGATIVE); URINE PROTEIN - DIPSTICK NEGATIVE (NEG-TRACE); URINE SPECIFIC GRAVITY 1.015; URINE UROBILINOGEN - DIPSTICK 0.2 E.U./dL (0.2)
[2022-04-19 11:08] LABS: URINE NITRITE - DIPSTICK NEGATIVE (Negative)
[2022-04-19 11:10] LABS: URINE RBC 0-2 RBC/hpf (0-5)
[2022-04-19 11:32] LABS: INTERNATIONAL NORMALIZED RATIO 1.1 RATIO (0.7-1.3); PROTHROMBIN TIME 10.8 SECONDS (9.0-12.5)
[2022-04-19 12:10] LABS: HEMATOCRIT 25.4 % (37.0-47.0); HEMOGLOBIN 8.3 g/dl (12.0-16.0)
[2022-04-19 14:42] VITALS: BP 149/59
[2022-04-19 15:27] LABS: HEMATOCRIT 24.5 % (37.0-47.0)
[2022-04-19 19:40] VITALS: BP 98/56
[2022-04-20 04:55] LABS: CREATININE 1.3 mg/dL (0.5-1.0); MAGNESIUM 1.7 mg/dL (1.6-2.3); POTASSIUM 4.3 mmol/l (3.5-5.1)
[2022-04-20 05:15] LABS: HEMATOCRIT 20.7 % (37.0-47.0); MEAN CELL VOLUME 89.6 fL CALC (80.0-100.0); MEAN CORPUSCULAR HGB 29.4 pG CALC (26.0-32.0); MEAN CORPUSCULAR HGB CONC 32.9 g/dL CAL (32.0-36.0); RED BLOOD COUNT 2.31 mill/uL (4.20-5.60); RED CELL DISTRI WIDTH 14.9 % (11.5-15.5)
[2022-04-20 05:40] VITALS: BP 134/31
[2022-04-20 06:01] VITALS: BP 148/58
[2022-04-20 06:10] VITALS: BP 148/58
[2022-04-20 07:41] LABS: HEMOGLOBIN 6.8 g/dl (12.0-16.0)
[2022-04-20 13:57] VITALS: BP 121/52
[2022-04-20 14:10] VITALS: BP 121/52
[2022-04-20 16:47] LABS: HEMATOCRIT 20.3 % (37.0-47.0)
[2022-04-20 16:51] LABS: HEMOGLOBIN 6.7 g/dl (12.0-16.0)
[2022-04-20 19:25] VITALS: BP 128/49
== END 2022-04-20 21:00 | disposition short-term general hospital (02) ==
LOC: ED 09:32 → ED-I 13:10 → ED 13:23 → MS2 13:24
PROVIDERS: Family Medicine; Nurse Practitioner; ADMIT Internal Medicine; ATTEND Internal Medicine
PROC: 0T9B70Z Drainage of Bladder with Drainage Device, Via Natural or Artificial Opening (ICD-10-PCS; principal; 2022-04-19)
DX: S30.1XXA Contusion of abdominal wall, initial encounter (principal); D62 Acute posthemorrhagic anemia; I25.10 Atherosclerotic heart disease of native coronary artery without angina pectoris; E11.22 Type 2 diabetes mellitus with diabetic chronic kidney disease; I12.9 Hypertensive chronic kidney disease with stage 1 through stage 4 chronic kidney disease, or unspecified chronic kidney disease; N18.9 Chronic kidney disease, unspecified; I48.20 Chronic atrial fibrillation, unspecified; G20 Parkinson's disease; F02.80 Dementia in other diseases classified elsewhere, unspecified severity, without behavioral disturbance, psychotic disturbance, mood disturbance, and anxiety; E78.5 Hyperlipidemia, unspecified; F32.A Depression, unspecified; F41.9 Anxiety disorder, unspecified; W01.0XXA Fall on same level from slipping, tripping and stumbling without subsequent striking against object, initial encounter; Y92.009 Unspecified place in unspecified non-institutional (private) residence as the place of occurrence of the external cause; Z95.1 Presence of aortocoronary bypass graft; Z95.0 Presence of cardiac pacemaker; Z87.11 Personal history of peptic ulcer disease; Z86.16 Personal history of COVID-19; Z20.822 Contact with and (suspected) exposure to COVID-19; Z91.81 History of falling
CPT/HCPCS: Q9967

== ENCOUNTER 2022-05-11 00:13 | Emergency (ER) | payer MEDICARE, OTHER ==
[~2022-05-11] VITALS: Ht 157.5 cm; Wt 65.0 kg
[~2022-05-11 00:13] MED LIST changes: +ADULT ASPIRIN R81 MG PO; +PLAVIX75 MG PO
[2022-05-11 00:23] VITALS: BP 157/76
[2022-05-11 00:30] VITALS: BP 161/67
[2022-05-11 01:16] LABS: HEMATOCRIT 25.4 % (37.0-47.0); HEMOGLOBIN 8.4 g/dl (12.0-16.0); IMMATURE GRANULOCYTES 0.5 % (0.0-5.0); MEAN CELL VOLUME 91.7 fL CALC (80.0-100.0); MEAN CORPUSCULAR HGB 30.3 pG CALC (26.0-32.0); MEAN CORPUSCULAR HGB CONC 33.1 g/dL CAL (32.0-36.0); NEUT# 3.31 thou/uL (2.00-7.15); RED BLOOD COUNT 2.77 mill/uL (4.20-5.60); RED CELL DISTRI WIDTH 15.8 % (11.5-15.5)
[2022-05-11 01:22] LABS: ALBUMIN 3.5 g/dL (3.2-5.0); BILIRUBIN, TOTAL 0.6 mg/dL (0.0-1.4); CREATININE 1.3 mg/dL (0.5-1.0); POTASSIUM 3.9 mmol/l (3.5-5.1); TOTAL PROTEIN 6.9 g/dL (6.3-8.2)
[2022-05-11 02:10] VITALS: BP 157/75
== END 2022-05-11 02:30 | disposition home or self-care (01) ==
LOC: ED 00:13
PROVIDERS: Family Medicine
DX: R79.81 Abnormal blood-gas level (principal); I10 Essential (primary) hypertension; E11.9 Type 2 diabetes mellitus without complications; D64.9 Anemia, unspecified; Z95.1 Presence of aortocoronary bypass graft; Z86.16 Personal history of COVID-19; Z95.0 Presence of cardiac pacemaker

== ENCOUNTER 2022-07-04 10:10 | Day surgery (SDC) | payer MEDICARE, OTHER ==
[~2022-07-04] VITALS: Ht 157.5 cm; Wt 58.1 kg
[~2022-07-04 10:10] MED LIST changes: +DULCOLAX10 MG RE; +FERROUS SULF325 M3 PO; +KEFLEX500 MG PO; +METOPROL TAR25 MG PO; +PEG 3350 XX; +VISTARIL PO
[2022-07-04 13:26] VITALS: BP 156/69
== END 2022-07-04 13:10 | disposition home or self-care (01) ==
LOC: ORM 10:10
PROVIDERS: ATTEND Surgery
PROC: 0HC7XZZ Extirpation of Matter from Abdomen Skin, External Approach (ICD-10-PCS; principal; 2022-07-04)
DX: S30.1XXA Contusion of abdominal wall, initial encounter (principal); E11.9 Type 2 diabetes mellitus without complications; I48.91 Unspecified atrial fibrillation; G20 Parkinson's disease; F02.80 Dementia in other diseases classified elsewhere, unspecified severity, without behavioral disturbance, psychotic disturbance, mood disturbance, and anxiety; I25.10 Atherosclerotic heart disease of native coronary artery without angina pectoris; E78.5 Hyperlipidemia, unspecified; F32.A Depression, unspecified; K21.9 Gastro-esophageal reflux disease without esophagitis; Z95.0 Presence of cardiac pacemaker; X58.XXXA Exposure to other specified factors, initial encounter
CPT/HCPCS: C9290; J3490

== ENCOUNTER 2022-07-15 19:45 | Emergency (ER) | payer MEDICARE, OTHER ==
[~2022-07-15] VITALS: Ht 157.5 cm; Wt 70.0 kg
[2022-07-15 21:19] VITALS: BP 135/64
== END 2022-07-15 21:29 | disposition home or self-care (01) ==
LOC: ED 19:45
DX: S00.93XA Contusion of unspecified part of head, initial encounter (principal); I10 Essential (primary) hypertension; E11.9 Type 2 diabetes mellitus without complications; W18.30XA Fall on same level, unspecified, initial encounter; Y92.008 Other place in unspecified non-institutional (private) residence as the place of occurrence of the external cause; S51.811A Laceration without foreign body of right forearm, initial encounter; X58.XXXA Exposure to other specified factors, initial encounter; S50.812D Abrasion of left forearm, subsequent encounter; X58.XXXD Exposure to other specified factors, subsequent encounter; Z95.1 Presence of aortocoronary bypass graft; Z86.16 Personal history of COVID-19

== ENCOUNTER 2022-07-29 14:00 | Inpatient (IN) | payer MEDICARE, OTHER ==
[~2022-07-29] VITALS: Ht 157.5 cm; Wt 53.0 kg
[2022-07-29 16:35] LABS: BASO% 0.3 % (0-3); EOS% 2.5 % (0-8); HEMATOCRIT 31.1 % (37.0-47.0); HEMOGLOBIN 10.5 g/dl (12.0-16.0); IMMATURE GRANULOCYTES 0.1 % (0.0-5.0); LYMPH% 37.9 % (15-41); MEAN CORPUSCULAR HGB 31.1 pG CALC (26.0-32.0); MEAN CORPUSCULAR HGB CONC 33.8 g/dL CAL (32.0-36.0); MONO% 5.7 % (2-13); NEUT# 3.88 thou/uL (2.00-7.15); NEUT% 53.5 % (42-76); RED BLOOD COUNT 3.38 mill/uL (4.20-5.60); RED CELL DISTRI WIDTH 15.4 % (11.5-15.5)
[2022-07-29] MEDS ORDERED: HALOPERIDOL0.5 MG PO (17:01)
[2022-07-29] MEDS ORDERED: FAMOTIDINE20 M3 PO (17:06)
[2022-07-29] MEDS ORDERED: DONEPEZIL10 MG PO (17:08)
[2022-07-29 17:10] LABS: ALBUMIN 3.6 g/dL (3.2-5.0); BILIRUBIN, TOTAL 0.3 mg/dL (0.0-1.4); MAGNESIUM 1.6 mg/dL (1.6-2.3); POTASSIUM 3.8 mmol/l (3.5-5.1); TOTAL PROTEIN 6.9 g/dL (6.3-8.2)
[2022-07-29] MEDS ORDERED: FOLATE400 MCG PO (17:11)
[2022-07-29] MEDS ORDERED: CLOPIDOGREL75 MG PO (17:14)
[2022-07-29 17:17] LABS: CREATININE 1.9 mg/dL (0.5-1.0)
[2022-07-29] MEDS ORDERED: HYDROXYZ HCL25 MG PO (17:17)
[2022-07-29 20:05] VITALS: BP 115/57
[2022-07-29 21:01] LABS: URINE BILIRUBIN - DIPSTICK NEGATIVE (NEGATIVE); URINE BLOOD DIPSTICK NEGATIVE (NEGATIVE); URINE COLOR YELLOW; URINE GLUCOSE - DIPSTICK NEGATIVE (NEGATIVE); URINE KETONE NEGATIVE (NEGATIVE); URINE LEUK ESTERASE TRACE (NEGATIVE); URINE PROTEIN - DIPSTICK NEGATIVE (NEG-TRACE); URINE SPECIFIC GRAVITY 1.025; URINE UROBILINOGEN - DIPSTICK 0.2 E.U./dL (0.2)
[2022-07-29 21:03] LABS: URINE NITRITE - DIPSTICK NEGATIVE (Negative)
[2022-07-30] VITALS (7 sets, daily range): BP systolic 102–159; BP diastolic 51–68
[2022-07-30 06:36] LABS: BASO% 0.2 % (0-3); EOS% 4.8 % (0-8); HEMATOCRIT 29.1 % (37.0-47.0); HEMOGLOBIN 9.9 g/dl (12.0-16.0); LYMPH% 43.3 % (15-41); MEAN CORPUSCULAR HGB 31.6 pG CALC (26.0-32.0); MONO% 7.7 % (2-13); NEUT# 2.13 thou/uL (2.00-7.15); RED BLOOD COUNT 3.13 mill/uL (4.20-5.60); RED CELL DISTRI WIDTH 15.4 % (11.5-15.5)
[2022-07-30 06:46] LABS: CREATININE 1.7 mg/dL (0.5-1.0); MAGNESIUM 1.6 mg/dL (1.6-2.3); POTASSIUM 3.9 mmol/l (3.5-5.1); TOTAL PROTEIN 6.2 g/dL (6.3-8.2)
[2022-07-30 07:05] LABS: BILIRUBIN, TOTAL 0.5 mg/dL (0.0-1.4)
[2022-07-31 04:59] VITALS: BP 154/67
[2022-07-31 06:13] LABS: HEMATOCRIT 25.9 % (37.0-47.0); HEMOGLOBIN 8.7 g/dl (12.0-16.0); MEAN CELL VOLUME 91.5 fL CALC (80.0-100.0); MEAN CORPUSCULAR HGB 30.7 pG CALC (26.0-32.0); MEAN CORPUSCULAR HGB CONC 33.6 g/dL CAL (32.0-36.0); RED BLOOD COUNT 2.83 mill/uL (4.20-5.60); RED CELL DISTRI WIDTH 15.6 % (11.5-15.5)
[2022-07-31 06:42] VITALS: BP 180/83
[2022-07-31 06:45] LABS: CREATININE 1.4 mg/dL (0.5-1.0); MAGNESIUM 1.6 mg/dL (1.6-2.3); POTASSIUM 3.6 mmol/l (3.5-5.1)
[2022-07-31 11:33] VITALS: BP 135/60
[2022-07-31] MEDS ORDERED: ATIVAN1 M1 PO (13:08)
[2022-07-31] MEDS ORDERED: SEROQUEL50 MG PO (13:08)
== END 2022-07-31 16:24 | DRG 57 ==
LOC: MS2 14:00
PROVIDERS: Nurse Practitioner Family; ADMIT Internal Medicine; ATTEND Internal Medicine
DX: G30.9 Alzheimer's disease, unspecified (principal); N17.9 Acute kidney failure, unspecified; F02.811 Dementia in other diseases classified elsewhere, unspecified severity, with agitation; I48.20 Chronic atrial fibrillation, unspecified; I12.9 Hypertensive chronic kidney disease with stage 1 through stage 4 chronic kidney disease, or unspecified chronic kidney disease; E11.22 Type 2 diabetes mellitus with diabetic chronic kidney disease; N18.9 Chronic kidney disease, unspecified; I25.10 Atherosclerotic heart disease of native coronary artery without angina pectoris; E78.5 Hyperlipidemia, unspecified; F41.9 Anxiety disorder, unspecified; F32.A Depression, unspecified; R63.4 Abnormal weight loss; R62.7 Adult failure to thrive; Z91.81 History of falling; Z95.0 Presence of cardiac pacemaker; Z87.11 Personal history of peptic ulcer disease; Z95.818 Presence of other cardiac implants and grafts; Z20.822 Contact with and (suspected) exposure to COVID-19
CPT/HCPCS: S0166